=== PATIENT | male | born 1995 | race Caucasian/White ===

== ENCOUNTER 2017-10-06 17:32 | Emergency (ER) | payer OTHER, SELFPAY ==
[2017-10-06 17:33] VITALS: PULSE 135; RESP 16; TEMP 37.3; O2SAT 96; BMI 35.9
[2017-10-06 18:04] VITALS: BP 145/105; PULSE 118; RESP 14; O2SAT 99
[2017-10-06 18:16] LABS: Absolute Lymphocyte Count 3.04 X10^3/ul (0.83-4.51); Absolute Neutrophil Count 7.1 X10^3/uL (2.0-7.7); Basophil# 0.11 X10^3/uL; Eosinophil# 0.23 X10^3/uL; Eosinophils% 2.1 % (0-5); Hematocrit 46.5 % (40-54); Hemoglobin 16.6 g/dl (13.0-16.5); Lymphocyte # 3.04 X10^3/ul (4.0); Lymphocyte % 27.5 % (19-41); Mean Corp Hgb Conc 35.7 g/gl (32-36); Mean Corpuscular Volume 89.8 fL (80-94); Mean Platelet Vol. 9.5 fl (6.2-12.0); Monocyte% 4.5 % (0-10); Neutrophil # 7.14 X10^3/uL (2.7-7.7); Neutrophil % 64.7 % (47-70); Platelet Count 219 K/mm3 (150-450); RBC Distribution Width CV 12.8 % (11.6-14.6); RBC Distribution Width SD 41.3 fl (35.1-43.9); Red Blood Count 5.18 M/mm3 (4.6-6.2)
[2017-10-06 18:23] LABS: POSITIVE COUNT NO; POSITIVE DIFFERENTIAL NO; POSITIVE MORPHOLOGY NO
[2017-10-06 18:26] LABS: Prothrombin Time (Protime)PT. 13.1 SECONDS (11.7-14.9)
[2017-10-06 18:27] LABS: Partial Thromboplast Time 26.6 Seconds (24.1-36.2)
[2017-10-06 18:41] LABS: AST(SGOT) 55 U/L (15-37); Alanine Aminotransfer ALT/SGPT 90 U/L (16-61); Albumin, Serum 4.4 g/dL (3.2-5.0); Alkaline Phosphatase 71 U/L (45-117); BUN 11 mg/dL (7-18); Bilirubin, Direct 0.18 mg/dL (0.00-0.30); Calcium,Total 9.3 mg/dL (8.5-10.1); Chloride 103 mmol/L (98-107); EST Glomerular Filtration Rate 100 mL/min (>60); Est Glom Filt Rate - Afr Amer 122 mL/min (>60); Estimated Creatinine Clearance 132.06 ml/min; Glucose 104 mg/dL (74-106); Lipase 233 U/L (73-393); Potassium 3.7 mmol/L (3.5-5.1); Protein, Total 8.4 g/dL (6.4-8.2); Sodium Level 140 mmol/L (136-145)
[2017-10-06] MEDS: 0.9% Normal Saline 1,000 ML 1000 ML IV (18:41)
[2017-10-06 18:42] LABS: Anion Gap 13 (5-15)
[2017-10-06 19:14] VITALS: BP 138/98; PULSE 121; RESP 14; O2SAT 98
[2017-10-06] MEDS: 0.9% Normal Saline 1,000 ML 150 ML IV (19:16)
[2017-10-06 20:05] LABS: Amphetamine Urine VISTA NEGATIVE (<1000 ng/mL); Barbiturate Urine VISTA NEGATIVE (< 200 ng/mL); Benzodiazepine Urine VISTA NEGATIVE (< 200 ng/mL); Cocaine Urine VISTA NEGATIVE (< 300 ng/mL); Ecstacy Urine VISTA NEGATIVE (< 500 ng/mL); Methadone Urine VISTA NEGATIVE (< 300 ng/mL); PCP Urine VISTA NEGATIVE (< 25 ng/mL); THC Urine VISTA NEGATIVE (< 50 ng/mL); Vista UDS pH Range 6
[2017-10-06 21:42] VITALS: BP 128/80; PULSE 115; RESP 14; O2SAT 99
[2017-10-06 22:13] VITALS: BP 131/70; PULSE 110; RESP 14; O2SAT 99
[2017-10-06 23:06] VITALS: BP 135/80; PULSE 95; RESP 14; O2SAT 98
--- NOTE | 2017-10-06 23:32 | ED.VISSUMM ---
- ER Visit Summary Date of Service: 10/06/17 Chief Complaint: Substance abuse History of Present Illness: The patient is a 22 M with a 2-year history of alcohol abuse and states he needs help. Patient states he drinks vodka daily. He has had proximally half a gallon earlier in the day today. Patient states he has been through withdrawal in the past, mainly when he was under age 22 and could not find anybody to buy alcohol for him. Family does state that he has been talking about suicide over the past couple of days. Physical Examination: Temperature is 99.2, heart rate 135, respiratory rate 16, pulse ox 96% on room air. Patient sitting upright in bed. He is intermittently cooperative with questioning. He does smell of alcoholic beverage. Heart is tachycardic and regular. Lung sounds are clear. Abdomen is soft and nontender. Test Results: CBC was a normal white count hemoglobin 16.6. Chemistry studies normal. LFTs do show an ALT of 90 and AST of 55. His EtOH returns at 279. Tox screen is negative. Emergency Department Course and Treatment: Patient started on IV fluids. CIWA score is obtained is equal to 9. On repeat evaluation patient is resting comfortably. He is been sleeping the last couple of hours. Patient does admit to recent suicidal ideation. He complains of a mild headache only at this time. Vital signs continue to show mild tachycardia. Patient will have repeat alcohol level drawn at midnight which would be 5 hours after his initial draw to calculate his clearance. If the patient does not have further signs of withdrawal with a CIWA score of over 15 he will need to be evaluated by crisis. Patient has been updated with this plan. Treatment Plan: [] Disposition: [] Impression: 1. Alcohol intoxication 2. Suicidal ideation This note was generated with [employer] software. It may contain incorrect words, spelling, and punctuation that were not noted in review of the chart prior to signing ED Disposition - Plan for ED Patient: Chief Complaint: Substance Abuse Referrals: Care Physician,No Primary [Primary Care Provider] -
[2017-10-07 00:01] VITALS: BP 130/74; PULSE 92; RESP 16; O2SAT 96
--- NOTE | 2017-10-07 01:31 | ED.RN ---
CALLED CRISIS TO SEE THIS PT, RADHA IS BRASS POURER
--- NOTE | 2017-10-07 01:54 | ED.RN ---
crisis called back and given information on patient at this time. [facility] will see patient once they are finished
[2017-10-07 02:00] VITALS: RESP 16
[2017-10-07 04:01] VITALS: BP 138/87; PULSE 87; RESP 15; O2SAT 96
--- NOTE | 2017-10-07 04:22 | ED.DEP ---
ED Disposition - Plan for ED Patient: Disposition: Home or Assisted Living Chief Complaint: Substance Abuse Instructions: ED Overdose Alcohol, ED Alcohol Abuse Referrals: Pratik Rausch MD [STAFF PHYSICIAN] - As Needed Counseling,Center [GROUP OF PHYSICIANS] - As soon as possible Additional Instructions: Follow[facility]up with [facility] for outpatient alcohol counseling and detox. Call and follow-up with counseling center. Return to ER feeling worse.
[2017-10-07 04:46] VITALS: BP 133/81; PULSE 72; RESP 15; O2SAT 98
== END 2017-10-07 04:47 | disposition home or self-care (01) ==
PROVIDERS: Emergency Provider Emergency Medicine
DX: F10.229 Alcohol dependence with intoxication, unspecified (principal); F32.9 Major depressive disorder, single episode, unspecified; Y90.8 Blood alcohol level of 240 mg/100 ml or more
CPT/HCPCS: 80048; 80076; 80307; 80320; 83690; 85025; 85610; 85730; 96360; 99284; J7030; A4216; G0480

== ENCOUNTER 2017-10-08 13:05 | Inpatient (IN) | payer OTHER, SELFPAY ==
[2017-10-08 13:14] VITALS: BMI 35.4; BMI 50.0
--- NOTE | 2017-10-08 14:00 | PCM.HP.STD ---
Problem List (1) Alcohol dependence Status: Acute (2) Alcohol withdrawal Status: Chronic (3) Tobacco dependence Status: Chronic (4) Obesities, morbid Status: Chronic History of Present Illness Date of Admission: 10/08/17 Chief Complaint: Upper and lower extremity numbness The patient is a 22 year old M patient is a 22-year-old gentleman with past medical history cigar for morbid obesity, chronic alcohol dependence who presented with upper and lower extremity numbness. Patient reports daily use of alcohol. He apparently drinks half a gallon of vodka daily in addition to sixpack. He had previously tried to detox on his own but he was unsuccessful. Patient was admitted with upper and lower extremity numbness as described above. He denies any hallucination he however complained of feeling tremulous. On assessment of acute alcohol withdrawal I was made admitted to regular nursing floor for further management Past Medical History Past Medical History (Chronic Problems): Chronic Problems Alcohol withdrawal (Chronic) Tobacco dependence (Chronic) Obesities, morbid (Chronic) Allergies No Known Allergies Allergy (Verified 10/06/17 17:36) Smoking Status: Current every day smoker - *Family History Paternal History Items: - - Chronic alcoholism Review of Systems Constitutional: Denies: Anorexia, Chills, Fever, Night Sweats, Weight Change HEENT: Denies: Head Aches, Sinus Congestion, Sinus Drainage Cardiovascular: Denies: Chest Pain, Orthopnea, Palpitations, Paroxysmal Noc. Dyspnea Respiratory: Denies: Cough, Shortness of breath at rest, Shortness of breath upon exertion, Sputum production Gastrointestinal: Denies: Abdominal Pain, Hematemesis, Hematochezia, Nausea, Melena, Vomiting Genitourinary: Denies: Dysuria, Frequency, Hematuria, Urgency Musculoskeletal: Denies: Joint Pain, Joint Tenderness Skin: Denies: Rash Neurological: Reports: Numbness, Tingling. Denies: Focal weakness Psychiatric: Denies: Homicidal Ideations, Suicidal Ideations Hematologic/ Lymphatic: Denies: Easy Bruising, Easy Bleeding VTE Information - Inpt Only VTE Present on Admission: No VTE Mechan Device Prophylaxis: Knee High ANTONY Hose VTE Pharm Prophylaxis ordered?: Yes Patient Problems: Active and Suspected Problems Alcohol dependence (Acute) Objective: GENERAL: cooperative HEENT: Clear conjunctiva, NECK; supple, normal thyroid, CHEST: Diminished to auscultation bilaterally, HEART: Regular S1 S2, no audible murmurs ABDOMEN: soft, non-tender, normoactive bowel sounds, RECTAL: deferred EXTREMITIES: No edema, no clubbing, no cyanosis. LEAD PHARMACY TECHNICIAN: Awake; no lateralizing signs. SKIN: No Rash Assessment/Plan All Active Problems Alcohol dependence (Acute) Vision is a 22-year-old gentleman presenting with acute alcohol withdrawal 1. Acute alcohol withdrawal patient has been admitted to regular nursing floor for medical stabilization using Librium 2. Chronic alcohol dependence patient was counseled on cessation 3. Morbid obesity patient was counseled on lifestyle modification including weight loss 4. Tobacco dependence counseled on cessation, offered nicotine patch for tobacco cravings 5. DVT prophylaxis low risk did encourage early ambulation Code Visit Inpatient E&M: 66057 Init Hosp L3
[2017-10-08 14:32] LABS: Absolute Lymphocyte Count 1.85 X10^3/ul (0.83-4.51); Basophil# 0.03 X10^3/uL; Basophil% 0.4 % (0-1); Eosinophil# 0.22 X10^3/uL; Eosinophils% 2.6 % (0-5); Hematocrit 45.5 % (40-54); Hemoglobin 15.9 g/dl (13.0-16.5); Lymphocyte # 1.85 X10^3/ul (4.0); Lymphocyte % 21.6 % (19-41); Mean Corp Hgb Conc 34.9 g/gl (32-36); Mean Corpuscular Hgb 31.7 pg (27.0-32.0); Mean Corpuscular Volume 90.8 fL (80-94); Mean Platelet Vol. 9.5 fl (6.2-12.0); Monocyte# 0.43 X10^3/uL; Neutrophil # 6.02 X10^3/uL (2.7-7.7); Neutrophil % 70.4 % (47-70); Platelet Count 181 K/mm3 (150-450); RBC Distribution Width CV 12.8 % (11.6-14.6); RBC Distribution Width SD 42.1 fl (35.1-43.9); Red Blood Count 5.01 M/mm3 (4.6-6.2); White Blood Count 8.6 K/mm3 (4.4-11.0)
[2017-10-08 14:33] LABS: POSITIVE COUNT NO; POSITIVE DIFFERENTIAL NO; POSITIVE MORPHOLOGY NO
[2017-10-08 14:46] LABS: AST(SGOT) 55 U/L (15-37); Alanine Aminotransfer ALT/SGPT 83 U/L (16-61); Albumin, Serum 3.9 g/dL (3.2-5.0); Alkaline Phosphatase 72 U/L (45-117); Amylase 64 U/L (25-115); Anion Gap 7 (5-15); BUN 14 mg/dL (7-18); BUN/Creat Ratio 13.1 RATIO (10-20); Calcium,Total 9.5 mg/dL (8.5-10.1); Chloride 105 mmol/L (98-107); Creatinine, Serum 1.07 mg/dL (0.70-1.30); EST Glomerular Filtration Rate 93 mL/min (>60); Est Glom Filt Rate - Afr Amer 112 mL/min (>60); Estimated Creatinine Clearance 123.42 ml/min; Globulin 4.1 g/dL (2.2-4.2); Glucose 98 mg/dL (74-106); Lipase 216 U/L (73-393); Magnesium 2.4 mg/dL (1.6-2.6); Potassium 3.8 mmol/L (3.5-5.1); Sodium Level 140 mmol/L (136-145)
[2017-10-08 15:02] VITALS: BP 125/79; PULSE 83; RESP 20; TEMP 36.8
[2017-10-08] MEDS: Lactated Ringers 1,000 ML 125 ML IV (15:12)
[2017-10-08] MEDS: Methocarbamol 750 MG Tablet PO ×2 (15:15→21:47)
[2017-10-08] MEDS: Acetaminophen 500 MG Tablet PO (15:20)
[2017-10-08 15:23] LABS: Alcohol, Blood (Medical)-Serum < 3.0 mg/dL
[2017-10-08] MEDS: chlordiazePOXIDE 25 MG Capsule PO ×2 (15:38→21:47)
[2017-10-08 17:46] VITALS: BP 125/70; PULSE 83; RESP 18; TEMP 37.2
[2017-10-08] MEDS: hydrOXYzine PAM 25 MG Capsule 50 MG PO (17:57)
[2017-10-08] MEDS: Dicyclomine 10 MG Capsule 20 MG PO (17:57)
--- NOTE | 2017-10-08 18:00 | NURSING ---
pt started c/o chest pain. Goes into left neck/shoulder. Pt is anxious. Medicated recently for anxiety. Hope, CPS here and performing 12 lead EKG. This nurse recently obtained Vital Signs.
[2017-10-08 18:53] LABS: Bacteria 0 SEEN /hpf (None Seen); Mucous, Urine 0 SEEN /hpf (<or=2+); Red Blood Cells-Urine 0 SEEN /hpf (0-5); Squamous Epithelial Cells - UA 0 SEEN /hpf (0-5)
[2017-10-08 19:07] LABS: Color, Urine Yellow (Yellow); Glucose, Dipstick Normal (Normal); Ketone-Dipstick Negative (Negative); Leukocyte Esterase-Dipstick 25 /ul (Negative); Nitrite-Dipstick Negative (Negative); Occult Blood-Urine Negative /ul (Negative); Protein-Dipstick Negative (Negative); Specific Gravity, Urine 1.015 (1.002-1.030); Urine Bilirubin Dipstick Negative (Negative); Urine Clarity Sl. Cloudy (Clear); Urine Urobilinogen Normal (Normal); Urine pH 6.5 (5.0 - 8.0)
[2017-10-08 19:24] LABS: White Blood Cells 0-5 SEEN /hpf (0-5)
[2017-10-08 19:29] LABS: Amphetamine Urine VISTA NEGATIVE (<1000 ng/mL); Barbiturate Urine VISTA NEGATIVE (< 200 ng/mL); Benzodiazepine Urine VISTA NEGATIVE (< 200 ng/mL); Cocaine Urine VISTA NEGATIVE (< 300 ng/mL); Ecstacy Urine VISTA NEGATIVE (< 500 ng/mL); Methadone Urine VISTA NEGATIVE (< 300 ng/mL); PCP Urine VISTA NEGATIVE (< 25 ng/mL); THC Urine VISTA POSITIVE (< 50 ng/mL); Vista UDS pH Range 6
[2017-10-08 21:42] VITALS: BP 119/69; PULSE 76; RESP 16; TEMP 36.6
[2017-10-08 21:45] VITALS: BP 119/69; PULSE 76; RESP 16; TEMP 36.6; O2SAT 96
[2017-10-08] MEDS: traZODone 50 MG Tablet PO (21:47)
[2017-10-09] VITALS (8 sets, daily range): BP systolic 101–137; BP diastolic 62–84; PULSE 61–97; RESP 16–18; TEMP 36.4–37.1; O2SAT 98–100
[2017-10-09] MEDS: hydrOXYzine PAM 25 MG Capsule 50 MG PO ×4 (00:05→21:09)
[2017-10-09] MEDS: Ibuprofen 600 MG Tablet PO ×3 (01:46→21:09)
[2017-10-09] MEDS: Ondansetron ODT 4 MG Tablet PO ×2 (01:46→16:45)
[2017-10-09] MEDS: Methocarbamol 750 MG Tablet PO ×3 (03:42→21:09)
[2017-10-09] MEDS: chlordiazePOXIDE 25 MG Capsule PO ×3 (03:42→16:44)
--- NOTE | 2017-10-09 07:42 | PCM.PN.HOSP ---
Patient Problems: Active and Suspected Problems Alcohol dependence (Acute) Subjective: Patient is a 22-year-old gentleman presenting with acute alcohol withdrawal 10/09/2017:. Patient complains of anxiety generalized body aches, night sweats Objective: GENERAL: cooperative HEENT: Clear conjunctiva, NECK; supple, normal thyroid, CHEST: Diminished to auscultation bilaterally, HEART: Regular S1 S2, no audible murmurs ABDOMEN: soft, non-tender, normoactive bowel sounds, RECTAL: deferred EXTREMITIES: No edema, no clubbing, no cyanosis. VENIPUNCTURIST: Awake; no lateralizing signs. SKIN: No Rash Vitals/I&O's: Vital Signs Temp Pulse Resp BP Pulse Ox 98.8 F 61 16 101/63 96 10/09/17 06:10 10/09/17 06:10 10/09/17 06:10 10/09/17 06:10 10/08/17 21:45 Oxygen Delivery Method Room Air Weight: 122.016 kg Body Mass Index (BMI) 35.4 Intake and Output for Last 24 Hours 10/07/17 10/08/17 10/09/17 23:59 23:59 23:59 Intake Total 2266 / 2266 250 / 250 Balance 2266 / 2266 250 / 250 Laboratory Results 10/08/17 14:20: WBC 8.6, RBC 5.01, Hgb 15.9, Hct 45.5, MCV 90.8, MCH 31.7, MCHC 34.9, RDW 12.8, RDW Differential 42.1, Plt Count 181, MPV 9.5, Immature Gran % (Auto) 0.000, Neut % (Auto) 70.4 H, Lymph % (Auto) 21.6, Graves % (Auto) 5.0, Eos % (Auto) 2.6, Baso % (Auto) 0.4, Absolute Neuts (auto) 6.0, Absolute Lymphs (auto) 1.85, Total Counted Not Reportable 10/08/17 14:20: Sodium 140, Potassium 3.8, Chloride 105, Carbon Dioxide 28.0, Anion Gap 7, BUN 14, Creatinine 1.07, Estim Creat Clear Calc 123.42, Est GFR (MDRD) Af Amer 112, Est GFR (MDRD) Non-Af 93, BUN/Creatinine Ratio 13.1, Glucose 98, Calcium 9.5, Magnesium 2.4, Total Bilirubin 0.60, AST 55 H, ALT 83 H, Alkaline Phosphatase 72, Total Protein 8.0, Albumin 3.9, Globulin 4.1, Albumin/Globulin Ratio 1.0, Amylase 64, Lipase 216 10/08/17 14:20: Ethyl Alcohol < 3.0 10/08/17 14:20: PT 13.0, INR 1.0 10/08/17 : Urine Opiates Screen NEGATIVE, Urine Methadone Screen NEGATIVE, Ur Barbiturates Screen NEGATIVE, Ur Phencyclidine Scrn NEGATIVE, Ur Amphetamines Screen NEGATIVE, U Methamphetamin-MDMA NEGATIVE, U Benzodiazepines Scrn NEGATIVE, Urine Cocaine Screen NEGATIVE, U Cannabinoids Screen POSITIVE H, Ur Drug Screen Comment 10/08/17 : Urine Color Yellow, Urine Clarity Sl. Cloudy, Urine pH 6.5, Ur Specific Hope 1.015, Urine Protein Negative, Urine Glucose (UA) Normal, Urine Ketones Negative, Urine Occult Blood Negative, Urine Nitrite Negative, Urine Bilirubin Negative, Urine Urobilinogen Normal, Ur Leukocyte Esterase 25 H, Urine RBC 0 SEEN, Urine WBC 0-5 SEEN, Ur Squamous Epith Cells 0 SEEN, Urine Bacteria 0 SEEN, Urine Mucus 0 SEEN Current Medications Acetaminophen (Tylenol) 500 mg PO Q4H PRN PRN PRN Reason: Temp > 100.4 F Last Admin: 10/08/17 15:20 Dose: 500 mg Al Hydroxide/Mg Hydroxide (Mylanta Ii) 30 ml PO Q6H PRN PRN PRN Reason: dyspesia Bisacodyl (Dulcolax) 10 mg RECTAL DAILY PRN PRN Reason: Constipation Chlordiazepoxide (Librium) 50 mg PO Q6H RYAN PRN Reason: Taper Stop: 10/11/17 17:29 Last Admin: 10/09/17 03:42 Dose: 50 mg Dicyclomine HCl (Bentyl) 20 mg PO Q6H PRN PRN PRN Reason: abdominal discomfort Last Admin: 10/08/17 17:57 Dose: 20 mg Folic [facility] ([facility] Acid) [facility] Hydroxyzine Pamoate (Vistaril Pamoate Capsule) 50 mg PO Q6H PRN PRN PRN Reason: Mild Anxiety (score 1/3) Last Admin: 10/09/17 06:12 Dose: 50 mg Ibuprofen (Motrin) 600 mg PO Q8H PRN PRN PRN Reason: Mild-Moderate Pain (1-5/10) Last Admin: 10/09/17 01:46 Dose: 600 mg Loperamide HCl (Imodium) 2 - 4 mg PO UD PRN PRN Reason: LOOSE STOOLS Lorazepam (Ativan) 2 mg IV X1 PRN PRN Reason: Seizure Magnesium Hydroxide (Milk Of Magnesia) 30 ml PO DAILY PRN PRN PRN Reason: Constipation Methocarbamol (Methocarbamol) 750 mg PO Q6H PRN PRN PRN Reason: Muscle Aches Last Admin: 10/09/17 03:42 Dose: 750 mg Multivitamins (Multivitamin) 1 tablet PO DAILYCM [facility] Nicotine (Nicoderm Cq (Pbkc)) 21 mg TRANSDERM. DAILY [facility] Last Admin: 10/08/17 21:47 Dose: 21 mg Ondansetron HCl (Zofran Odt) 4 mg PO Q6H PRN PRN PRN Reason: NAUSEA Last Admin: 10/09/17 01:46 Dose: 4 mg Senna (Senokot) 1 tablet PO QHS PRN PRN Reason: Constipation Sodium Chloride () 5 - 30 ml IV UD PRN PRN Reason: SALINE FLUSH Thiamine HCl (Vitamin B1) 100 mg PO DAILYCM [facility] Trazodone HCl (Desyrel) 50 mg PO QHS [facility] Last Admin: 10/08/17 21:47 Dose: 50 mg Medical Necessity - Tobacco Use Smoking Status: Current every day smoker Assessment/Plan All Active Problems Alcohol dependence (Acute) Patient is a 22-year-old gentleman presenting with acute alcohol withdrawal 1. Acute alcohol withdrawal patient has been admitted to regular nursing floor for medical stabilization using Librium 2. Chronic alcohol dependence patient was counseled on cessation 3. Morbid obesity patient was counseled on lifestyle modification including weight loss 4. Tobacco dependence counseled on cessation, offered nicotine patch for tobacco cravings 5. DVT prophylaxis low risk did encourage early ambulation Code Visit Inpatient E&M: 31513 Subs Hosp L3
[2017-10-09] MEDS: Multivitamins,Therapeutic Tablet 1 TABLET PO (07:57)
[2017-10-09] MEDS: Thiamine Hydrochloride 100 MG Tablet PO (07:57)
[2017-10-09] MEDS: Folic Acid 1 MG Tablet PO (07:57)
[2017-10-09] MEDS: Acetaminophen 500 MG Tablet PO (08:09)
--- NOTE | 2017-10-09 12:53 | CHAPLAIN ---
Type of Pastoral Visit _x__ Initial Visit ___ Follow-up Visit ___ On-call Visit ___ General Patient Visit ___ Spiritual Assessment ___ Family Conference ___ Bereavement ___ Rapid Response ___ Code Blue ___ Other (describe below) Pastoral Care Referral From _x__ Patient ___ Family ___ Nurse ___ Physician ___ Stone Planer ___ Stock House Worker ___ Other (describe below) Sacrament/Intervention _x__ Active listening ___ Anointing ___ Baptist ___ Bereavement ___ Communion _x__ Elda exploration ___ ___ Life review _x__ Prayer ___ Reconciliation ___ Sacrament of Sick _x__ Supportive presence ___ Wedding ___ Other (describe below) Pastoral Comments patient verbalizes a strong understanding of his problem and the remedies for overcoming; pt has a motivation as illustrated in presence of his and son; pt says among other resources that he wants to go back to [employer] again and do the right things; pt is talkative and welcomes prayer support and spiritual care
[2017-10-09] MEDS: traZODone 50 MG Tablet PO (22:15)
[2017-10-10] VITALS (7 sets, daily range): BP systolic 103–150; BP diastolic 62–117; PULSE 73–103; RESP 16–20; TEMP 36.4–36.8; O2SAT 96–98
[2017-10-10] MEDS: chlordiazePOXIDE 25 MG Capsule PO ×3 (01:20→17:39)
--- NOTE | 2017-10-10 07:45 | PCM.PN.HOSP ---
Patient Problems: Active and Suspected Problems Alcohol dependence (Acute) Subjective: Patient seen had a relatively uneventful night. Plan is for patient to be discharged on 10/11/2017 to follow-up Objective: GENERAL: cooperative HEENT: Clear conjunctiva, NECK; supple, normal thyroid, CHEST: Diminished to auscultation bilaterally, HEART: Regular S1 S2, no audible murmurs ABDOMEN: soft, non-tender, normoactive bowel sounds, RECTAL: deferred EXTREMITIES: No edema, no clubbing, no cyanosis. TRANSVERSE ABDOMINAL MUSCLE SURGEON: Awake; no lateralizing signs. SKIN: No Rash Vitals/I&O's: Vital Signs Temp Pulse Resp BP Pulse Ox 97.6 F L 73 16 103/62 98 10/10/17 06:39 10/10/17 06:39 10/10/17 06:39 10/10/17 06:39 10/09/17 20:59 Oxygen Delivery Method Room Air Weight: 122.016 kg Body Mass Index (BMI) 35.4 Intake and Output for Last 24 Hours 10/08/17 10/09/17 10/10/17 23:59 23:59 23:59 Intake Total 2266 / 2266 1290 / 1290 500 / 500 Balance 2266 / 2266 1290 / 1290 500 / 500 Current Medications Acetaminophen (Tylenol) 500 mg PO Q4H PRN PRN PRN Reason: Temp > 100.4 F Last Admin: 10/09/17 08:09 Dose: 500 mg Al Hydroxide/Mg Hydroxide (Mylanta Ii) 30 ml PO Q6H PRN PRN PRN Reason: dyspesia Bisacodyl (Dulcolax) 10 mg RECTAL DAILY PRN PRN Reason: Constipation Chlordiazepoxide (Librium) 50 mg PO Q8H RYAN PRN Reason: Taper Stop: 10/11/17 17:29 Last Admin: 10/10/17 01:20 Dose: 50 mg Dicyclomine HCl (Bentyl) 20 mg PO Q6H PRN PRN PRN Reason: abdominal discomfort Last Admin: 10/08/17 17:57 Dose: 20 mg Folic Acid (Folic Acid) 1 mg PO DAILYCM RYAN Last Admin: 10/09/17 07:57 Dose: 1 mg Hydroxyzine Pamoate (Vistaril Pamoate Capsule) 50 mg PO Q6H PRN PRN PRN Reason: Mild Anxiety (score 1/3) Last Admin: 10/09/17 21:09 Dose: 50 mg Ibuprofen (Motrin) 600 mg PO Q8H PRN PRN PRN Reason: Mild-Moderate Pain (1-5/10) Last Admin: 10/09/17 21:09 Dose: 600 mg Loperamide HCl (Imodium) 2 - 4 mg PO UD PRN PRN Reason: LOOSE STOOLS Lorazepam (Ativan) 2 mg IV X1 PRN PRN Reason: Seizure Magnesium Hydroxide (Milk Of Magnesia) 30 ml PO DAILY PRN PRN PRN Reason: Constipation Methocarbamol (Methocarbamol) 750 mg PO Q6H PRN PRN PRN Reason: Muscle Aches Last Admin: 10/09/17 21:09 Dose: 750 mg [facility]) [facility] Last Admin: 10/09/17 07:57 Dose: 1 tablet Nicotine (Nicoderm Cq (Pbkc)) 21 mg TRANSDERM. DAILY [facility] Last Admin: 10/09/17 18:07 Dose: 21 mg Ondansetron HCl (Zofran Odt) 4 mg PO Q6H PRN PRN PRN Reason: NAUSEA Last Admin: 10/09/17 16:45 Dose: 4 mg Senna (Senokot) 1 tablet PO QHS PRN PRN Reason: Constipation Sodium Chloride () 5 - 30 ml IV UD PRN PRN Reason: SALINE FLUSH Thiamine HCl (Vitamin B1) [facility] Last Admin: 10/09/17 07:57 Dose: 100 mg Trazodone HCl (Desyrel) 50 mg PO QHS [facility] Last Admin: 10/09/17 22:15 Dose: 50 mg Medical Necessity - Tobacco Use Smoking Status: Current every day smoker Assessment/Plan All Active Problems Alcohol dependence (Acute) Patient is a 22-year-old gentleman presenting with acute alcohol withdrawal 1. Acute alcohol withdrawal patient has been admitted to regular nursing floor for medical stabilization using Librium 2. Chronic alcohol dependence patient was counseled on cessation 3. Morbid obesity patient was counseled on lifestyle modification including weight loss 4. Tobacco dependence counseled on cessation, offered nicotine patch for tobacco cravings 5. DVT prophylaxis low risk did encourage early ambulation0 Code Visit Inpatient E&M: 35648 Subs Hosp L2
[2017-10-10] MEDS: Folic Acid 1 MG Tablet PO (08:49)
[2017-10-10] MEDS: Thiamine Hydrochloride 100 MG Tablet PO (08:49)
[2017-10-10] MEDS: Multivitamins,Therapeutic Tablet 1 TABLET PO (08:50)
[2017-10-10] MEDS: Methocarbamol 750 MG Tablet PO (09:10)
[2017-10-10] MEDS: Ibuprofen 600 MG Tablet PO ×2 (09:10→18:56)
[2017-10-10] MEDS: hydrOXYzine PAM 25 MG Capsule 50 MG PO (14:01)
[2017-10-10] MEDS: Acetaminophen 500 MG Tablet PO (14:03)
[2017-10-10] MEDS: Dicyclomine 10 MG Capsule 20 MG PO (14:03)
--- NOTE | 2017-10-10 15:43 | CHAPLAIN ---
Type of Pastoral Visit ___ Initial Visit _x__ Follow-up Visit ___ On-call Visit ___ General Patient Visit ___ Spiritual Assessment ___ Family Conference ___ Bereavement ___ Rapid Response ___ Code Blue ___ Other (describe below) Pastoral Care Referral From _x__ Patient ___ Family ___ Nurse ___ Physician ___ Environmental Compliance Engineer ___ Stage Driver ___ Other (describe below) Sacrament/Intervention _x__ Active listening ___ Anointing ___ Latter-Day ___ Bereavement ___ Communion _x__ Elda exploration ___ _x__ Life review _x__ Prayer ___ Reconciliation ___ Sacrament of Sick _x__ Supportive presence ___ Wedding ___ Other (describe below) Pastoral Comments patient has the answers and appears to be ready for a major life change; however pt talks about fears of going back to the alcohol and wondering how he is going to handle depression, boredom, etc.; pt reports having good support and a desire to return to the things that were good for him; pt speaks of desire to be in zoroastrianism; pt welcomes prayer; spouse comes into room early on in this conversation; spouse says she is supportive but does not really understand his addiction
[2017-10-10] MEDS: traZODone 50 MG Tablet PO (21:11)
[2017-10-11 02:00] VITALS: BP 105/55; PULSE 70; RESP 18; TEMP 36.4; O2SAT 96
[2017-10-11 03:00] VITALS: RESP 16; O2SAT 95
[2017-10-11] MEDS: chlordiazePOXIDE 25 MG Capsule PO (05:36)
[2017-10-11 08:26] VITALS: BP 160/85; PULSE 90; RESP 16; TEMP 37.1; O2SAT 99
--- NOTE | 2017-10-11 08:57 | PCM.DC ---
- Discharge Diagnoses Current Active Problems: Current Active and Chronic Problems Alcohol dependence (Acute) Alcohol withdrawal (Chronic) Tobacco dependence (Chronic) Obesities, morbid (Chronic) You will use the following diet at home:: No restrictions Discharge Activity: Return to Normal Activity Allergies/Adverse Reactions: Allergies No Known Allergies Allergy (Verified 10/06/17 17:36) Medications to take at Discharge Amlodipine [Norvasc] 5 mg PO DAILY #30 tab 10/11/17 The following prescriptions were given: Amlodipine [Norvasc] 5 mg PO DAILY #30 tab Primary Care Physician: Care Physician,No Primary [Primary Care Provider] - Please follow up with your Primary Care Physician in: in 1-2 weeks Test Results: Test results from this visit will be discussed in further detail at your follow-up appointment, if applicable. Proposed Discharge Date: 10/11/17
--- NOTE | 2017-10-11 09:00 | PCM.DC.SUM ---
Discharge Date and Diagnosis - Problem List Patient Problems: Active and Suspected Problems Essential (primary) hypertension (Acute) Alcohol dependence (Acute) Date of Admission: 10/08/17 Date of Discharge: 10/11/17 - Primary Discharge Diagnosis Active and Suspected Problems Essential (primary) hypertension (Acute) Alcohol dependence (Acute) - Secondary Discharge Diagnosis Chronic Problems Alcohol withdrawal (Chronic) Tobacco dependence (Chronic) Obesities, morbid (Chronic) Hospital Course and Treatment Summary of Care Provided: Patient is a 22-year-old gentleman presenting with acute alcohol withdrawal 1. Acute alcohol withdrawal patient has been admitted to regular nursing floor for medical stabilization using Librium 2. Chronic alcohol dependence patient was counseled on cessation 3. Morbid obesity patient was counseled on lifestyle modification including weight loss 4. Tobacco dependence counseled on cessation, offered nicotine patch for tobacco cravings 5. DVT prophylaxis low risk did encourage early ambulation 6. Essential hypertension; new diagnosis prescription was written for amlodipine for the patient patient was also provided with a PCP list and asked to pick want to call for follow-up Discharge Diet: No Restrictions Discharge Activity: Return to Normal Activity Home Medications: Medications to take at Discharge Amlodipine [Norvasc] 5 mg PO DAILY #30 tab 10/11/17 Following Prescrptions Were Given to Patient: Amlodipine [Norvasc] 5 mg PO DAILY #30 tab Primary Care Physician: Care Physician,No Primary [Primary Care Provider] - Please follow up with your Primary Care Physician in: in 1-2 weeks Disposition: Home Minutes spent on discharge:: 35 Patient Condition:: Stable Medical Necessity - Tobacco Use Smoking Status: Current every day smoker Meaningful Use Info Meaningful Use Diagnoses (Choose all that apply): None applicable Code Visit Inpatient E&M: 45848 Disch Hosp
[2017-10-11] MEDS: Multivitamins,Therapeutic Tablet 1 TABLET PO (09:09)
[2017-10-11] MEDS: Folic Acid 1 MG Tablet PO (09:09)
[2017-10-11] MEDS: Thiamine Hydrochloride 100 MG Tablet PO (09:09)
== END 2017-10-11 11:15 | disposition home or self-care (01) | DRG 897 ==
PROVIDERS: Admitting Provider Internal Medicine; Visit Provider Internal Medicine
DX: F10.239 Alcohol dependence with withdrawal, unspecified (principal); F17.200 Nicotine dependence, unspecified, uncomplicated; E66.01 Morbid (severe) obesity due to excess calories; Z68.35 Body mass index [BMI] 35.0-35.9, adult; I10 Essential (primary) hypertension
CPT/HCPCS: 80053; 80307; 80320; 81001; 82150; 83690; 83735; 85025; 85610; 93005; J7120; A4216; G0480

== ENCOUNTER 2019-01-30 11:57 | Inpatient (IN) | payer MEDICAID, SELFPAY ==
[2019-01-30 11:58] VITALS: BP 155/103; PULSE 110; RESP 16; TEMP 36.7; O2SAT 97; BMI 38.2
--- NOTE | 2019-01-30 12:25 | EKG12_ITS ---
Test Reason : SUBT ABUSE Blood Pressure : / mmHG Vent. Rate : 096 BPM Atrial Rate : 096 BPM P-R Int : 146 ms QRS Dur : 072 ms QT Int : 366 ms P-R-T Axes : 033 -01 016 degrees QTc Int : 462 ms Normal sinus rhythm Normal ECG Confirmed by RACHNA MAJANO, BESSIE ([id number]), video tape editor CARLIN MARTIN ([id number] on 02/02/2019 9:58:38 AM Referred By: HEATHER Confirmed By:JAMIE BRISCOE MD
[2019-01-30] MEDS: LORazepam 2 MG/ML Syringe IV (12:42)
[2019-01-30] MEDS: 0.9% Normal Saline 1,000 ML 999 ML IV ×2 (12:42→14:03)
[2019-01-30 13:14] LABS: Absolute Lymphocyte Count 1.77 X10^3/uL (0.83-4.51); Absolute Neutrophil Count 5.8 X10^3/uL (2.0-7.7); Basophil# 0.13 X10^3/uL; Basophil% 1.5 % (0-1); Eosinophil# 0.27 X10^3/uL; Eosinophils% 3.2 % (0-5); Hematocrit 40.5 % (40-54); Hemoglobin 14.3 g/dL (13.0-16.5); Lymphocyte # 1.77 X10^3/ul (4.0); Lymphocyte % 20.7 % (19-41); Mean Corp Hgb Conc 35.3 g/dL (32-36); Mean Corpuscular Hgb 38.8 pg (27.0-32.0); Mean Corpuscular Volume 109.8 fL (80-94); Mean Platelet Vol. 9.4 fl (6.2-12.0); Monocyte# 0.55 X10^3/uL; Monocyte% 6.4 % (0-10); NRBC Flagged by Analyzer 0 % (0-5); Platelet Count 276 K/mm3 (150-450); RBC Distribution Width CV 12.3 % (11.6-14.6); RBC Distribution Width SD 50.2 fl (35.1-43.9); Red Blood Count 3.69 M/mm3 (4.6-6.2); White Blood Count 8.5 K/mm3 (4.4-11.0)
[2019-01-30 13:29] LABS: Mucous, Urine 0 SEEN /hpf (<or=2+); White Blood Cells 0 SEEN /hpf (0-5)
[2019-01-30 13:31] LABS: ALB/GLOB Ratio 0.8 RATIO (0.9-2.4); AST(SGOT) 326 U/L (15-37); Alanine Aminotransfer ALT/SGPT 117 U/L (16-61); Albumin, Serum 3.7 g/dL (3.2-5.0); Alkaline Phosphatase 184 U/L (45-117); Anion Gap 12 (5-15); BUN 4 mg/dL (7-18); BUN/Creat Ratio 4.7 RATIO (10-20); Calcium,Total 9.9 mg/dL (8.5-10.1); Chloride 103 mmol/L (98-107); Creatinine, Serum 0.85 mg/dL (0.70-1.30); EST Glomerular Filtration Rate 119 mL/min (>60); Est Glom Filt Rate - Afr Amer 145 mL/min (>60); Estimated Creatinine Clearance 154.06 ml/min; Globulin 4.7 g/dL (2.2-4.2); Glucose 135 mg/dL (74-106); Lipase 369 U/L (73-393); Potassium 4.1 mmol/L (3.5-5.1); Protein, Total 8.4 g/dL (6.4-8.2); Sodium Level 139 mmol/L (136-145)
[2019-01-30 13:42] LABS: Amphetamine Urine VISTA NEGATIVE (<1000 ng/mL); Barbiturate Urine VISTA NEGATIVE (< 200 ng/mL); Benzodiazepine Urine VISTA NEGATIVE (< 200 ng/mL); Cocaine Urine VISTA NEGATIVE (< 300 ng/mL); Ecstacy Urine VISTA NEGATIVE (< 500 ng/mL); Methadone Urine VISTA NEGATIVE (< 300 ng/mL); PCP Urine VISTA NEGATIVE (< 25 ng/mL); THC Urine VISTA NEGATIVE (< 50 ng/mL); Vista UDS pH Range 6
[2019-01-30 13:45] LABS: Color, Urine Yellow (Yellow); Glucose, Dipstick Normal (Normal); Ketone-Dipstick 5 mg/dl (Negative); Leukocyte Esterase-Dipstick 25 /ul (Negative); Nitrite-Dipstick Negative (Negative); Occult Blood-Urine Negative /ul (Negative); Protein-Dipstick Negative (Negative); Urine Bilirubin Dipstick Negative (Negative); Urine Clarity Clear (Clear); Urine Urobilinogen 1 mg/dl (Normal)
[2019-01-30 13:54] LABS: Bacteria RARE /hpf (None Seen); Red Blood Cells-Urine 0-5 SEEN /hpf (0-5); Squamous Epithelial Cells - UA 0-5 SEEN /hpf (0-5)
--- NOTE | 2019-01-30 14:12 | US_ITS ---
STUDY: ABDOMINAL ULTRASOUND - RIGHT UPPER QUADRANT REASON FOR VISIT: Male, 23 years old elevated liver enzymes. TECHNIQUE: Ultrasound evaluation of the right upper quadrant was performed with real-time and static olvera-scale imaging. TECHNICAL QUALITY: Limited. Examination limited due to a combination of factors including obesity and bowel gas. COMPARISON: None. FINDINGS: Liver: The liver is enlarged and measures 24.5 cm. There is increased echogenicity consistent with fatty infiltration. The bile ducts are within normal limits. There is hepatic color flow. The direction of portal flow is hepatopetal. There is no demonstrated mass lesion. Gallbladder: Normal distended gallbladder. The gallbladder wall measures 1.5 mm. There is a negative sonographic Marin''s sign. There is no pericholecystic fluid. There are no gallstones. Common Bile Duct (C.B.D.): The common bile duct measures 4.9 mm. Pancreas: There is nonvisualization of the pancreas due to overlying bowel gas. Right Kidney: Normal size of the right kidney. The right kidney measures 12.3 cm x 6.5 cm x 4.5 cm. Normal renal cortex. The right cortex measures 1.3 cm. There is no demonstrated renal mass or cyst. There is no right hydronephrosis. US/Gallbladder IMPRESSION: Hepatomegaly and diffuse fatty infiltration of the liver. Electronically Signed: Zana Corado, at 15:42 EST , Service support ,
--- NOTE | 2019-01-30 14:14 | ED.DCSUM_ITS ---
History of Present Illness Chief Complaint: Substance Abuse Informant: Patient Onset: Month(s) Current Severity: Mild Narrative: Chief complaint is requesting alcohol detox he has a long history of alcohol abuse, he states he drinks about a half a gallon or more of vodka every day he has been doing that for many years, he is never been detoxed, to his knowledge he has no known history of any complications from the alcohol abuse, other than the report recently he was admitted to a local [facility] and found to have low electrolytes he was treated for that and told his liver enzymes were elevated he should stop drinking and follow-up for detox which he did not He has no history of cardiopulmonary disorder GI disorder WI PE or DVT he denies smoking denies any type of illicit drug use his bowel and bladder habits been generally unremarkable he states decreased p.o. intake he denies abdominal pain or vomiting Past Medical History - Allergies and Home Meds Allergies/Adverse Reactions: Allergies No Known Allergies Allergy (Verified 10/06/17 17:36) Primary Care Physician: Care Physician,No Primary [Primary Care Provider] - Past Medical History: - - Alcohol abuse as above elevated liver enzymes Smoking Status: Current some day smoker - Family History Paternal Family History: Family History (Last Updated 10/11/17 @ 13:14 by Bell Hendrickson) Mother Chronic mental illness Grandmother Diabetes Chronic mental illness Sister Chronic mental illness Grandfather Myocardial infarction CVA (cerebral vascular accident) Cancer Family History: Reports: - - Chronic alcoholism Review of Systems General: Reports: - - Complains of a tremor since he stopped drinking about midnight. Denies: Chills, Fever, Sweats Eyes: Denies: Visual changes - bilaterally, Diplopia ENT: Denies: Rhinorrhea, Sore throat Cardiovascular: Denies: Chest pain, Palpitations Respiratory: Denies: Dyspnea, Cough, Dyspnea on exertion Gastrointestinal: Denies: Abdominal pain, Nausea, Vomiting, Diarrhea, Melena, Hematochezia Genitourinary: Denies: Dysuria, Hematuria, Frequency Musculoskeletal: Denies: Back pain, Extremity Pain Skin: Denies: Rash, Wounds Neurological: Denies: Headache, Weakness, Numbness Physical Exam Vital Signs/Narrative: Vital Signs Temp Pulse Resp BP Pulse Ox 01/30/19 11:58 98.1 F 110 H 16 155/103 H 97 General: Well nourished, Well developed, No Acute Distress, - - Does have a resting tremor to both upper extremities is awake and alert he is a very large gentleman Head: Normocephalic, Atraumatic Eyes: Perrl, EOMI ENT: Moist mucous membranes, No rhinorrhea Neck: Supple, Nontender Cardiovascular: Regular rate, Regular rhythm, No murmurs Respiratory: No distress, CTA bilaterally, Chest nontender Abdomen: Soft, Nontender, Nondistended, Normal bowel sounds, - - The min is obese but soft and nontender neurologically he is awake alert moving all 4 has had no hallucinations no seizures Back: Nontender, Normal Inspection Extremities: Nontender, No edema Skin: Normal color, No rash Neurological: Alert, Oriented x3, Cranial nerves II-XII grossly intact, Normal Strength, Normal Sensation Psychological: Normal affect, Normal Mood Diagnostic/Tx/Re-eval - Medical Decision Making The patient has heavy history of alcohol consumption to his knowledge when he cuts back or stops drinking he develops tremor he has never had a seizure hallucinations or DTs, he did not follow-up to have his liver enzymes checked he is asking for detox as he is had significant difficulty with his spouse who will not let him live with her until he gets detoxed and sober His liver enzymes are elevated his rest of his screening labs are generally unremarkable, he was treated IV fluids Ativan we did speak with the hospitalist, we have ordered hepatitis screen and ultrasound the admitting service will check these results and will arrange for admission Admit stable Final impression alcohol withdrawal, alcohol abuse requiring detox, elevated liver enzymes ED Disposition - Plan for ED Patient: Diagnosis: Alcohol dependence, Alcohol withdrawal Referrals: Care Physician,No Primary [Primary Care Provider] -
[2019-01-30] MEDS: Ondansetron 4 MG/2 ML Vial IV (14:36)
[2019-01-30 14:38] VITALS: BMI 38.3
--- NOTE | 2019-01-30 14:51 | HP.PCM_ITS ---
History of Present Illness Date of Admission: 01/30/19 Chief Complaint: alcohol detox The patient is a 23 year old M with a PMH of alcohol abuse. He was admitted via the ED on 01/30/19 for alcohol detox. He drinks about half a gallon of vodka daily for the past year and half. His last drink was one day ago. He says he has gone through detox before but was relapsed. He says his kicked him out of the house, and he says he now wants to quit drinking. He also complained of tremors in his UEs, and some numbness in LEs. Vitals were significant for tachycardia with HR of 110 and BP of 155/103. CBC was unremarkable. CMP showed elevated liver enzymes but was otherwise normal. EKG showed no acute ST change s. He is being admitted to be managed for acute alcohol withdrawal [] Past Medical History Past Medical History (Chronic Problems): Chronic Problems (Last Updated 10/11/17 @ 13:13 by Bell Hendrickson) Bipolar 1 disorder (Chronic) Anxiety and depression (Chronic) Alcohol withdrawal (Chronic) Tobacco dependence (Chronic) Obesities, morbid (Chronic) Medical History: Medical History (Last Updated 10/11/17 @ 13:13 by Bell Hendrickson) Bipolar 1 disorder (Chronic) F31.9 Anxiety and depression (Chronic) F41.9, F32.9 History of traumatic head injury Z87.828 age 10 Allergies No Known Allergies Allergy (Verified 10/06/17 17:36) Home Medications: Ambulatory Orders Medication Instructions Recorded NK 01/30/19 Surgical History: no surgical history Psychiatric History: No pertinent psych hx Lives: Spouse/ Significant Other Smoking Status: Current some day smoker Tobacco Use: Cigarettes Alcohol: Heavy Drugs: None - *Family History Paternal Family History: Family History (Last Updated 10/11/17 @ 13:14 by Bell Hendrickson) Mother Chronic mental illness Grandmother Diabetes Chronic mental illness Sister Chronic mental illness Grandfather Myocardial infarction CVA (cerebral vascular accident) Cancer History Items: - - Chronic alcoholism Review of Systems Constitutional: Denies: Chills, Fever, Malaise, Weakness, Weight Change Eyes: Denies: Blurred vision HEENT: Denies: Head Aches, Sinus Congestion, Sinus Drainage Cardiovascular: Denies: Chest Pain, Palpitations Respiratory: Denies: Cough, Shortness of Breath, Shortness of breath at rest, Shortness of breath upon exertion, Sputum production Gastrointestinal: Denies: Abdominal Pain, Nausea, Vomiting Genitourinary: Denies: Dysuria Musculoskeletal: Denies: Joint Pain, Joint Tenderness Skin: Denies: Rash, Wounds Neurological: Reports: Numbness, Tingling, Tremor. Denies: Focal weakness Psychiatric: Denies: Anxiety, Depression, Homicidal Ideations, Suicidal Ideations Hematologic/ Lymphatic: Denies: Easy Bruising, Easy Bleeding VTE Information - Inpt Only VTE Present on Admission: No VTE Mechan Device Prophylaxis: SCD's VTE Pharm Prophylaxis ordered?: No Patient Problems: Active and Suspected Problems (Last Updated 10/11/17 @ 13:13 by Bell Hendrickson) Alcohol dependence (Acute) - Physical Exam Vitals/I&O's: Vital Signs Temp Pulse Resp BP Pulse Ox 98.1 F 110 H 16 155/103 H 97 01/30/19 11:58 01/30/19 11:58 01/30/19 11:58 01/30/19 11:58 01/30/19 11:58 Oxygen Delivery Method Room Air Weight: 290 lb Body Mass Index (BMI) 38.2 Intake and Output for Last 24 Hours 01/28/19 01/29/19 01/30/19 23:59 23:59 23:59 Intake Total 1000 / 1000 Balance 1000 / 1000 General: Alert, Oriented x3, Cooperative, - - obese HEENT: Atraumatic, PERRLA, EOMI, Normocephalic Oral: Moist Mucosa Neck: Supple, No JVD, Negative Carotid Bruits Lungs: Clear to auscultation, Normal air movement, No rhonchi, No wheeze, No rales Cardiovascular: Regular rate, Regular Rhythm, Normal S1, Normal S2, No murmurs Abdomen: Bowel Sounds Present, Soft, Non Tender, Non-Distended, No Hepato- splenomegaly Extremities: No clubbing, No cyanosis, No edema, Capillary Refill Less than 3 Seconds Skin: No rashes, No breakdown Musculoskeletal: No Tenderness to Palpation of Joints or Extremities Lymphatic: No Cervical, Supraclavicular, or Inguinal Adenopathy Neurological: Cranial nerves II-XII grossly intact, Neuro grossly intact, Motor Exam 5/5 strength throughout Psych/Mental Status: Normal Affect, Appropriate, Alert and oriented to time, place, person, mood and affect Laboratory Results 01/30/19 12:47: WBC 8.5, RBC 3.69 L, Hgb 14.3, Hct 40.5, MCV 109.8 H, MCH 38.8 H , MCHC 35.3, RDW Std Deviation 50.2 H, RDW Coeff of Lisa 12.3, Plt Count 276, MPV 9.4, Immature Gran % (Auto) 0.200, Neut % (Auto) 68.0, Lymph % (Auto) 20.7, [place] % (Auto) 6.4, Eos % (Auto) 3.2, Baso % (Auto) 1.5 H, Absolute Neuts (auto) 5.8, Absolute Lymphs (auto) 1.77, Nucleated RBC % 0 01/30/19 12:47: Sodium 139, Potassium 4.1, Chloride 103, Carbon Dioxide 24.0, Anion Gap 12, BUN 4 L, Creatinine 0.85, Estim Creat Clear Calc 154.06, Est GFR (MDRD) Af Amer 145, Est GFR (MDRD) Non-Af 119, BUN/Creatinine Ratio 4.7 L, Glucose 135 H, Calcium 9.9, Total Bilirubin 1.50 H, AST 326 H, ALT 117 H, Alkaline Phosphatase 184 H, Total Protein 8.4 H, Albumin 3.7, Globulin 4.7 H, Albumin/Globulin Ratio 0.8 L, Lipase 369 01/30/19 12:47: Ethyl Alcohol 4.0 01/30/19 13:20: Urine Opiates Screen NEGATIVE, Urine Methadone Screen NEGATIVE, Ur Barbiturates Screen NEGATIVE, Ur Phencyclidine Scrn NEGATIVE, Ur Amphetamines Screen NEGATIVE, U Methamphetamin-MDMA NEGATIVE, U Benzodiazepines Scrn NEGATIVE, Urine Cocaine Screen NEGATIVE, U Cannabinoids Screen NEGATIVE, Ur Drug Screen Comment 01/30/19 13:20: Urine Color Yellow, Urine Clarity Clear, Urine pH 7.0, Ur Specific [place] 1.010, Urine Protein Negative, Urine Glucose (UA) Normal, Urine Ketones 5 H, Urine Occult Blood Negative, Urine Nitrite Negative, Urine Bilirubin Negative, Urine Urobilinogen 1 H, Ur Leukocyte Esterase 25 H, Urine RBC 0-5 SEEN, Urine WBC 0 SEEN, Ur Squamous Epith Cells 0-5 SEEN, Urine Bacteria RARE, Urine Mucus 0 SEEN 01/30/19 14:22: Hepatitis A IgM Ab Pending, Hep Bs Antigen Pending, Hep B Core IgM Ab Pending, Hepatitis C Ab (EIA) Pending Assessment/Plan All Active Problems (Last Updated 10/11/17 @ 13:13 by Bell Hendrickson) Essential (primary) hypertension (Acute) Alcohol dependence (Acute) 23 y/o admitted with a complaint of alcohol withdrawal 1. Acute alcohol withdrawal * admit to med surg with telemetry * put on alcohol withdrawal protocol with ativan * monitor CIWA score; CIWA score was 16 on admission * fall precautions * 2. Elevated liver enzymes * total bilirubin is 1.5, with AST/ALT of 326/117 and ALP of 184. * liver USG pending * likely due to alcohol abuse * hepatitis panel pending * 3. Nicotine dependence: counseled to quit. Nicotine patch 21mg daily DVT prophylaxis: SCDs Disposition: wants to go to inpatient rehab unit after detox process. Case management consulted. Code Visit Inpatient E&M: 90077 Init Hosp L3
[2019-01-30 15:23] VITALS: BMI 39.0
[2019-01-30 15:25] VITALS: BP 166/95; PULSE 104; RESP 18; O2SAT 98
[2019-01-30 16:07] VITALS: BP 131/92; PULSE 107; RESP 16; TEMP 36.7; O2SAT 94
[2019-01-30 16:17] LABS: Magnesium 1.9 mg/dL (1.6-2.6)
[2019-01-30] MEDS: LORazepam 1 MG Tablet 2 MG PO ×2 (16:19→18:11)
[2019-01-30] MEDS: Methocarbamol 750 MG Tablet PO (16:22)
[2019-01-30 16:31] LABS: Bedside Glucose 166 mg/dL (70-110)
[2019-01-30 20:12] VITALS: BP 135/97; PULSE 98; RESP 18; TEMP 36.4; O2SAT 97
[2019-01-30] MEDS: LORazepam 1 MG Tablet PO (20:23)
[2019-01-31] VITALS (9 sets, daily range): BP systolic 127–152; BP diastolic 86–106; PULSE 91–116; RESP 12–18; TEMP 36.4–37.1; O2SAT 95–98
[2019-01-31] MEDS: Methocarbamol 750 MG Tablet PO ×3 (00:04→23:55)
[2019-01-31] MEDS: LORazepam 1 MG Tablet PO ×6 (00:04→23:38)
[2019-01-31 05:10] LABS: Absolute Lymphocyte Count 2.04 X10^3/uL (0.83-4.51); Absolute Neutrophil Count 3.3 X10^3/uL (2.0-7.7); Basophil% 1.6 % (0-1); Eosinophil# 0.38 X10^3/uL; Eosinophils% 6.1 % (0-5); Hematocrit 38.4 % (40-54); Hemoglobin 13.5 g/dL (13.0-16.5); Lymphocyte # 2.04 X10^3/ul (4.0); Mean Corp Hgb Conc 35.2 g/dL (32-36); Mean Corpuscular Hgb 39.4 pg (27.0-32.0); Mean Platelet Vol. 9.3 fl (6.2-12.0); Monocyte# 0.36 X10^3/uL; Monocyte% 5.8 % (0-10); NRBC Flagged by Analyzer 0 % (0-5); Neutrophil # 3.29 X10^3/uL (2.7-7.7); Neutrophil % 53.3 % (47-70); Platelet Count 206 K/mm3 (150-450); RBC Distribution Width SD 49.9 fl (35.1-43.9); Red Blood Count 3.43 M/mm3 (4.6-6.2); White Blood Count 6.2 K/mm3 (4.4-11.0)
[2019-01-31 05:35] LABS: ALB/GLOB Ratio 0.7 RATIO (0.9-2.4); AST(SGOT) 178 U/L (15-37); Alanine Aminotransfer ALT/SGPT 86 U/L (16-61); Alkaline Phosphatase 158 U/L (45-117); Anion Gap 6 (5-15); BUN 6 mg/dL (7-18); BUN/Creat Ratio 7.1 RATIO (10-20); Calcium,Total 9.2 mg/dL (8.5-10.1); Chloride 102 mmol/L (98-107); Creatinine, Serum 0.84 mg/dL (0.70-1.30); EST Glomerular Filtration Rate 121 mL/min (>60); Est Glom Filt Rate - Afr Amer 146 mL/min (>60); Estimated Creatinine Clearance 155.89 ml/min; Globulin 4.2 g/dL (2.2-4.2); Glucose 151 mg/dL (74-106); Potassium 4.1 mmol/L (3.5-5.1); Protein, Total 7.2 g/dL (6.4-8.2); Sodium Level 136 mmol/L (136-145)
--- NOTE | 2019-01-31 07:16 | PCM.PN.HOSP ---
Patient Problems: Active and Suspected Problems (Last Updated 10/11/17 @ 13:13 by Bell Hendrickson) Alcohol dependence (Acute) Reason for Visit: Follow-up acute alcohol withdrawal Subjective: Patient is a 23-year-old gentleman presenting with acute alcohol withdrawal Objective: GENERAL: cooperative HEENT: Atraumatic; EYES; Anicteric, Normal Conjunctiva NECK; supple, normal thyroid, RESPIRATORY: Diminished to auscultation CARDIOVASCULAR: Regular S1 S2, GI: soft, normoactive bowel sounds, : No Renal angle tenderness; EXTREMITIES: No edema, no clubbing, MUSCULOSKELETAL: no muscle waisting NEURO: Awake; no lateralizing signs. SKIN: No Rash PSYCH; Flat affect Vitals/I&O's: Vital Signs Temp Pulse Resp BP Pulse Ox 98.2 F 91 18 136/97 H 96 01/31/19 04:03 01/31/19 04:03 01/31/19 04:03 01/31/19 04:03 01/31/19 04:03 Oxygen Delivery Method Room Air Weight: 134.2 kg Body Mass Index (BMI) 39.0 Intake and Output for Last 24 Hours 01/29/19 01/30/19 01/31/19 23:59 23:59 23:59 Intake Total 2400 / 2400 400 / 400 Balance 2400 / 2400 400 / 400 Laboratory Results 01/30/19 12:47: WBC 8.5, RBC 3.69 L, Hgb 14.3, Hct 40.5, MCV 109.8 H, MCH 38.8 H, MCHC 35.3, RDW Std Deviation 50.2 H, RDW Coeff of Lisa 12.3, Plt Count 276, MPV 9.4, Immature Gran % (Auto) 0.200, Neut % (Auto) 68.0, Lymph % (Auto) 20.7, [place] % (Auto) 6.4, Eos % (Auto) 3.2, Baso % (Auto) 1.5 H, Absolute Neuts (auto) 5.8, Absolute Lymphs (auto) 1.77, Nucleated RBC % 0 01/30/19 12:47: Sodium 139, Potassium 4.1, Chloride 103, Carbon Dioxide 24.0, Anion Gap 12, BUN 4 L, Creatinine 0.85, Estim Creat Clear Calc 154.06, Est GFR (MDRD) Af Amer 145, Est GFR (MDRD) Non-Af 119, BUN/Creatinine Ratio 4.7 L, Glucose 135 H, Calcium 9.9, Total Bilirubin 1.50 H, AST 326 H, ALT 117 H, Alkaline Phosphatase 184 H, Total Protein 8.4 H, Albumin 3.7, Globulin 4.7 H, Albumin/Globulin Ratio 0.8 L, Lipase 369 01/30/19 12:47: Ethyl Alcohol 4.0 01/30/19 12:47: Magnesium 1.9 01/30/19 13:20: Urine Opiates Screen NEGATIVE, Urine Methadone Screen NEGATIVE, Ur Barbiturates Screen NEGATIVE, Ur Phencyclidine Scrn NEGATIVE, Ur Amphetamines Screen NEGATIVE, U Methamphetamin-MDMA NEGATIVE, U Benzodiazepines Scrn NEGATIVE, Urine Cocaine Screen NEGATIVE, U Cannabinoids Screen NEGATIVE, Ur Drug Screen Comment 01/30/19 13:20: Urine Color Yellow, Urine Clarity Clear, Urine pH 7.0, Ur Specific [place] 1.010, Urine Protein Negative, Urine Glucose (UA) Normal, Urine Ketones 5 H, Urine Occult Blood Negative, Urine Nitrite Negative, Urine Bilirubin Negative, Urine Urobilinogen 1 H, Ur Leukocyte Esterase 25 H, Urine RBC 0-5 SEEN, Urine WBC 0 SEEN, Ur Squamous Epith Cells 0-5 SEEN, Urine Bacteria RARE, Urine Mucus 0 SEEN 01/30/19 14:22: Hepatitis A IgM Ab Pending, Hep Bs Antigen Pending, Hep B Core IgM Ab Pending, Hepatitis C Ab (EIA) Pending 01/30/19 16:13: POC Glucose 166 H 01/31/19 05:00: WBC 6.2, RBC 3.43 L, Hgb 13.5, Hct 38.4 L, MCV 112.0 H, MCH 39.4 H, MCHC 35.2, RDW Std Deviation 49.9 H, RDW Coeff of Lisa 12.0, Plt Count 206, MPV 9.3, Immature Gran % (Auto) 0.200, Neut % (Auto) 53.3, Lymph % (Auto) 33.0, [place] % (Auto) 5.8, Eos % (Auto) 6.1 H, Baso % (Auto) 1.6 H, Absolute Neuts (auto) 3.3, Absolute Lymphs (auto) 2.04, Nucleated RBC % 0 01/31/19 05:00: Sodium 136, Potassium 4.1, Chloride 102, Carbon Dioxide 28.0, Anion Gap 6, BUN 6 L, Creatinine 0.84, Estim Creat Clear Calc 155.89, Est GFR (MDRD) Af Amer 146, Est GFR (MDRD) Non-Af 121, BUN/Creatinine Ratio 7.1 L, Glucose 151 H, Calcium 9.2, Total Bilirubin 1.60 H, AST 178 H, ALT 86 H, Alkaline Phosphatase 158 H, Total Protein 7.2, Albumin 3.0 L, Globulin 4.2, Albumin/Globulin Ratio 0.7 L Current Medications Dextrose (D50w Syringe) 0 gm IV X1 PRN; Protocol PRN Reason: Hypoglycemia Dicyclomine HCl (Bentyl) 20 mg PO Q6H PRN PRN PRN Reason: abdominal discomfort Folic Acid (Folic Acid) 1 mg PO DAILYCM [facility] Stop: 02/02/19 08:01 Glucagon () 1 mg IM .X1 PRN PRN Reason: Hypoglycemia Hydroxyzine Pamoate (Vistaril Pamoate Capsule) 50 mg PO Q6H PRN PRN PRN Reason: Mild Anxiety (score 1/3) Lorazepam (Ativan) 2 mg PO Q2H PRN PRN; Protocol PRN Reason: CIWA score > 8 but <15 Last Admin: 01/30/19 18:11 Dose: 2 mg Documented by: Lorazepam (Ativan) 2 mg PO UD PRN; Protocol PRN Reason: CIWA score >/=15. Last Admin: 01/30/19 16:19 Dose: 2 mg Documented by: Lorazepam (Ativan) 2 mg IV Q2H PRN PRN; Protocol PRN Reason: CIWA score > 8 but <15 Lorazepam (Ativan) 2 mg IV UD PRN; Protocol PRN Reason: CIWA score >/=15. Lorazepam (Ativan) 1 mg PO Q4H RYAN; Taper Stop: 02/02/19 19:59 Last Admin: 01/31/19 04:05 Dose: 1 mg Documented by: Methocarbamol (Methocarbamol) 750 mg PO Q6H PRN PRN PRN Reason: Muscle Aches Last Admin: 01/31/19 00:04 Dose: 750 mg Documented by: Multivitamins ([facility]ivitamin) [facility] Ondansetron HCl (Zofran) 4 mg IV Q8H PRN PRN PRN Reason: NAUSEA/VOMITING Sodium Chloride () 10 - 40 ml IV UD PRN PRN Reason: SALINE FLUSH Thiamine HCl (Vitamin B1) 100 mg PO DAILYCM [facility] Stop: 02/02/19 08:01 STROKE Vital Signs/Narrative: Vital Signs Temp Pulse Resp BP Pulse Ox 01/31/19 04:03 98.2 F 91 18 136/97 H 96 Medical Necessity - Tobacco Use Smoking Status: Current some day smoker Tobacco Use: Cigarettes Assessment/Plan All Active Problems (Last Updated 10/11/17 @ 13:13 by Bell Hendrickson) Essential (primary) hypertension (Acute) Alcohol dependence (Acute) Patient is a 23-year-old gentleman presenting with acute alcohol withdrawal 1. Acute alcohol withdrawal ~patient has been admitted to regular nursing floor for medical stabilization using Lorazepam 2. Chronic alcohol dependence ~patient was counseled on cessation 3. Morbid obesity ~patient with BMI of 39.0 was counseled on lifestyle modification including weight loss 4. DVT prophylaxis ~ low risk did encourage early ambulation Active Medications Dextrose (D50w Syringe) 0 gm IV X1 PRN; Protocol PRN Reason: Hypoglycemia Dicyclomine HCl (Bentyl) 20 mg PO Q6H PRN PRN PRN Reason: abdominal discomfort Folic Acid (Folic Acid) [facility] Stop: 02/02/19 08:01 Last Admin: 01/31/19 07:55 Dose: 1 mg Documented by: Glucagon () 1 mg IM .X1 PRN PRN Reason: Hypoglycemia Hydroxyzine Pamoate (Vistaril Pamoate Capsule) 50 mg PO Q6H PRN PRN PRN Reason: Mild Anxiety (score 1/3) Lorazepam (Ativan) 2 mg PO Q2H PRN PRN; Protocol PRN Reason: CIWA score > 8 but <15 Last Admin: 01/30/19 18:11 Dose: 2 mg Documented by: Lorazepam (Ativan) 2 mg PO UD PRN; Protocol PRN Reason: CIWA score >/=15. Last Admin: 01/30/19 16:19 Dose: 2 mg Documented by: Lorazepam (Ativan) 2 mg IV Q2H PRN PRN; Protocol PRN Reason: CIWA score > 8 but <15 Lorazepam (Ativan) 2 mg IV UD PRN; Protocol PRN Reason: CIWA score >/=15. Lorazepam (Ativan) 1 mg PO Q4H RYAN; Taper Stop: 02/02/19 19:59 Last Admin: 01/31/19 07:55 Dose: 1 mg Documented by: Methocarbamol (Methocarbamol) 750 mg PO Q6H PRN PRN PRN Reason: Muscle Aches Last Admin: 01/31/19 07:58 Dose: 750 mg Documented by: Multivitamins (Multivitamin) [facility] Last Admin: 01/31/19 07:55 Dose: 1 tablet Documented by: Ondansetron HCl (Zofran) 4 mg IV Q8H PRN PRN PRN Reason: NAUSEA/VOMITING Sodium Chloride () 10 - 40 ml IV UD PRN PRN Reason: SALINE FLUSH Thiamine HCl (Vitamin B1) 100 mg PO DAILYCM [facility] Stop: 02/02/19 08:01 Last Admin: 01/31/19 07:55 Dose: 100 mg Documented by: Code Visit Inpatient E&M: 71904 Subs Hosp L2
[2019-01-31] MEDS: Folic Acid 1 MG Tablet PO (07:55)
[2019-01-31] MEDS: Thiamine Hydrochloride 100 MG Tablet PO (07:55)
[2019-01-31] MEDS: Multivitamins,Therapeutic Tablet 1 TABLET PO (07:55)
--- NOTE | 2019-01-31 10:18 | CASEMGMT ---
Social Work Note Pt is at [facility] for alcohol detox. SW met with pt, introduced self and role at [facility]. Pt is alert and orientated x3. SW asked pt about discharge plans. Pt states he plans on following up with [facility] at discharge for STEPS program. SW educated pt on Walk in assessments days and times and encouraged pt to follow up with [facility] at discharge. [facility] but did at one time had a counselor. SW did provide pt with additional treatment resources. Pt denied additional needs or concerns at this time. Plan: [facility] at discharge Louisa Floyd [employer], [employer]ORN [employer]OTOGR[employer]HER
[2019-01-31] MEDS: LORazepam 1 MG Tablet 2 MG PO ×2 (11:22→17:06)
[2019-01-31] MEDS: Dicyclomine 10 MG Capsule 20 MG PO ×2 (16:58→23:56)
[2019-01-31] MEDS: 0.9% Saline Lock 10 ML Syringe IV (23:57)
[2019-02-01] VITALS (9 sets, daily range): BP systolic 119–161; BP diastolic 78–110; PULSE 86–127; RESP 16–18; TEMP 36.7–37.1; O2SAT 94–98
[2019-02-01] MEDS: LORazepam 1 MG Tablet PO ×3 (06:40→20:00)
--- NOTE | 2019-02-01 07:46 | PCM.PN.HOSP ---
Patient Problems: Active and Suspected Problems (Last Updated 10/11/17 @ 13:13 by Bell Hendrickson) Alcohol dependence (Acute) Reason for Visit: acute alcohol withdrawal. Subjective: Patient seen still complains of feeling tremulous. Objective: GENERAL: cooperative HEENT: Atraumatic; EYES; Anicteric, Normal Conjunctiva NECK; supple, normal thyroid, RESPIRATORY: Diminished to auscultation CARDIOVASCULAR: Regular S1 S2, GI: soft, normoactive bowel sounds, : No Renal angle tenderness; EXTREMITIES: No edema, no clubbing, MUSCULOSKELETAL: no muscle waisting NEURO: Awake; no lateralizing signs. SKIN: No Rash PSYCH; Flat affect Vitals/I&O's: Vital Signs Temp Pulse Resp BP Pulse Ox 98.3 F 100 18 119/91 H 96 02/01/19 06:30 02/01/19 06:30 02/01/19 06:30 02/01/19 06:30 02/01/19 06:30 Oxygen Delivery Method Room Air Weight: 134.2 kg Body Mass Index (BMI) 39.0 Intake and Output for Last 24 Hours 01/30/19 01/31/19 02/01/19 23:59 23:59 23:59 Intake Total 2400 / 2400 800 / 800 200 / 200 Balance 2400 / 2400 800 / 800 200 / 200 Current Medications Dextrose (D50w Syringe) 0 gm IV X1 PRN; Protocol PRN Reason: Hypoglycemia Dicyclomine HCl (Bentyl) 20 mg PO Q6H PRN PRN PRN Reason: abdominal discomfort Last Admin: 01/31/19 23:56 Dose: 20 mg Documented by: Folic Acid (Folic Acid) [facility] Stop: 02/02/19 08:01 Last Admin: 01/31/19 07:55 Dose: 1 mg Documented by: Glucagon () 1 mg IM .X1 PRN PRN Reason: Hypoglycemia Hydroxyzine Pamoate (Vistaril Pamoate Capsule) 50 mg PO Q6H PRN PRN PRN Reason: Mild Anxiety (score 1/3) Lorazepam (Ativan) 2 mg PO Q2H PRN PRN; Protocol PRN Reason: CIWA score > 8 but <15 Last Admin: 01/31/19 11:22 Dose: 2 mg Documented by: Lorazepam (Ativan) 2 mg PO UD PRN; Protocol PRN Reason: CIWA score >/=15. Last Admin: 01/31/19 17:06 Dose: 2 mg Documented by: Lorazepam (Ativan) 2 mg IV Q2H PRN PRN; Protocol PRN Reason: CIWA score > 8 but <15 Lorazepam (Ativan) 2 mg IV UD PRN; Protocol PRN Reason: CIWA score >/=15. Lorazepam (Ativan) 1 mg PO Q6H RYAN; Taper Stop: 02/02/19 19:59 Last Admin: 02/01/19 06:40 Dose: 1 mg Documented by: Methocarbamol (Methocarbamol) 750 mg PO Q6H PRN PRN PRN Reason: Muscle Aches Last Admin: 01/31/19 23:55 Dose: 750 mg Documented by: Multivitamins (Multivitamin) [facility] Last Admin: 01/31/19 07:55 Dose: 1 tablet Documented by: Ondansetron HCl (Zofran) 4 mg IV Q8H PRN PRN PRN Reason: NAUSEA/VOMITING Sodium Chloride () 10 - 40 ml IV UD PRN PRN Reason: SALINE FLUSH Last Admin: 01/31/19 23:57 Dose: 10 ml Documented by: Thiamine HCl (Vitamin B1) 100 mg PO DAILYCM [facility] Stop: 02/02/19 08:01 Last Admin: 01/31/19 07:55 Dose: 100 mg Documented by: STROKE Vital Signs/Narrative: Vital Signs Temp Pulse Resp BP Pulse Ox 02/01/19 06:30 98.3 F 100 18 119/91 H 96 Medical Necessity - Tobacco Use Smoking Status: Current some day smoker Tobacco Use: Cigarettes Assessment/Plan All Active Problems (Last Updated 10/11/17 @ 13:13 by Bell Hendrickson) Essential (primary) hypertension (Acute) Alcohol dependence (Acute) Patient is a 23-year-old gentleman presenting with acute alcohol withdrawal 1. Acute alcohol withdrawal ~patient has been admitted to regular nursing floor for medical stabilization using Lorazepam 02/01/2019:Patient seen still complains of feeling tremulous. Continue with current treatment regimen with lorazepam 2. Chronic alcohol dependence ~patient was counseled on cessation 3. Morbid obesity ~patient with BMI of 39.0 was counseled on lifestyle modification including weight loss 4. DVT prophylaxis ~ low risk did encourage early ambulation Code Visit Inpatient E&M: 58219 Subs Hosp L2
[2019-02-01] MEDS: Dicyclomine 10 MG Capsule 20 MG PO ×2 (08:41→14:12)
[2019-02-01] MEDS: LORazepam 1 MG Tablet 2 MG PO ×3 (08:41→16:40)
[2019-02-01] MEDS: Methocarbamol 750 MG Tablet PO ×2 (08:42→16:40)
[2019-02-01] MEDS: Folic Acid 1 MG Tablet PO (08:42)
[2019-02-01] MEDS: Thiamine Hydrochloride 100 MG Tablet PO (08:42)
[2019-02-01] MEDS: Ondansetron 4 MG/2 ML Vial IV ×2 (08:42→16:40)
[2019-02-01] MEDS: Multivitamins,Therapeutic Tablet 1 TABLET PO (08:42)
[2019-02-01] MEDS: 0.9% Saline Lock 10 ML Syringe IV (08:43)
[2019-02-01 09:07] LABS: HEPATITIS B SURFACE AG Negative (Negative); Hepatitis A IgM Antibody Negative (Negative); Hepatitis B Core AB IgM Negative (Negative)
[2019-02-01] MEDS: hydrOXYzine PAM 25 MG Capsule 50 MG PO ×2 (14:13→20:18)
[2019-02-02 02:00] VITALS: BP 122/71; PULSE 90; RESP 18; TEMP 37; O2SAT 94
[2019-02-02] MEDS: LORazepam 1 MG Tablet PO ×2 (04:30→12:16)
--- NOTE | 2019-02-02 08:14 | DCINST_ITS ---
- Discharge Diagnoses Current Active Problems: Current Active and Chronic Problems (Last Updated 10/11/17 @ 13:13 by Bell Hendrickson) Alcohol dependence (Acute) Alcohol withdrawal (Chronic) You will use the following diet at home:: No restrictions Discharge Activity: May not drive while taking narcotic pain medications. Allergies/Adverse Reactions: Allergies No Known Allergies Allergy (Verified 10/06/17 17:36) Medications to take at Discharge NK 01/30/19 Primary Care Physician: Care Physician,No Primary [Primary Care Provider] - Please follow up with your Primary Care Physician in: in 1-2 weeks Test Results: Test results from this visit will be discussed in further detail at your follow- up appointment, if applicable. Please Follow Up With: 180 When: for counseling; please call on 02/03/2019 for an appointment Proposed Discharge Date: 02/02/19
--- NOTE | 2019-02-02 08:17 | PCM.DC.SUM ---
Discharge Date and Diagnosis - Problem List Patient Problems: Active and Suspected Problems (Last Updated 10/11/17 @ 13:13 by Bell Hendrickson) Alcohol dependence (Acute) Date of Admission: 01/30/19 Date of Discharge: 02/02/19 - Primary Discharge Diagnosis Active and Suspected Problems (Last Updated 10/11/17 @ 13:13 by Bell Hendrickson) Alcohol dependence (Acute) - Secondary Discharge Diagnosis Chronic Problems (Last Updated 10/11/17 @ 13:13 by Bell Hendrickson) Bipolar 1 disorder (Chronic) Anxiety and depression (Chronic) Essential (primary) hypertension (Chronic) Alcohol withdrawal (Chronic) Tobacco dependence (Chronic) Obesities, morbid (Chronic) Hospital Course and Treatment Summary of Care Provided: Patient is a 23-year-old gentleman presenting with acute alcohol withdrawal 1. Acute alcohol withdrawal ~patient has been admitted to regular nursing floor for medical stabilization using Lorazepam 02/01/2019:Patient seen still complains of feeling tremulous. Continue with current treatment regimen with lorazepam Of 819: Patient medical condition was deemed stable enough to be discharged. He was given the number for [facility] counseling services and instructed to call to set up appointment as outpatient. 2. Chronic alcohol dependence ~patient was counseled on cessation 3. Morbid obesity ~patient with BMI of 39.0 was counseled on lifestyle modification including weight loss 4. DVT prophylaxis ~ low risk did encourage early ambulation Patient Problems: Active and Suspected Problems (Last Updated 10/11/17 @ 13:13 by Bell Hendrickson) Alcohol dependence (Acute) Objective: GENERAL: cooperative HEENT: Atraumatic; EYES; Anicteric, Normal Conjunctiva NECK; supple, normal thyroid, RESPIRATORY: Diminished to auscultation CARDIOVASCULAR: Regular S1 S2, GI: soft, normoactive bowel sounds, : No Renal angle tenderness; EXTREMITIES: No edema, no clubbing, MUSCULOSKELETAL: no muscle waisting NEURO: Awake; no lateralizing signs. SKIN: No Rash PSYCH; Flat affect - Physical Exam Vitals/I&O's: Vital Signs Temp Pulse Resp BP Pulse Ox 98.6 F 90 18 122/71 H 94 02/02/19 02:00 02/02/19 02:00 02/02/19 02:00 02/02/19 02:00 02/02/19 02:00 Oxygen Delivery Method Room Air Weight: 134.2 kg Body Mass Index (BMI) 39.0 Intake and Output for Last 24 Hours 01/31/19 02/01/19 02/02/19 23:59 23:59 23:59 Intake Total 800 / 800 1100 / 1600 600 / 600 Output Total 0 / 0 Balance 800 / 800 1100 / 1600 600 / 600 Current Medications Dextrose (D50w Syringe) 0 gm IV X1 PRN; Protocol PRN Reason: Hypoglycemia Dicyclomine HCl (Bentyl) 20 mg PO Q6H PRN PRN PRN Reason: abdominal discomfort Last Admin: 02/01/19 14:12 Dose: 20 mg Documented by: Glucagon () 1 mg IM .X1 PRN PRN Reason: Hypoglycemia Hydroxyzine Pamoate (Vistaril Pamoate Capsule) 50 mg PO Q6H PRN PRN PRN Reason: Mild Anxiety (score 1/3) Last Admin: 02/01/19 20:18 Dose: 50 mg Documented by: Lorazepam (Ativan) 2 mg PO Q2H PRN PRN; Protocol PRN Reason: CIWA score > 8 but <15 Last Admin: 01/31/19 11:22 Dose: 2 mg Documented by: Lorazepam (Ativan) 2 mg PO UD PRN; Protocol PRN Reason: CIWA score >/=15. Last Admin: 02/01/19 16:40 Dose: 2 mg Documented by: Lorazepam (Ativan) 2 mg IV Q2H PRN PRN; Protocol PRN Reason: CIWA score > 8 but <15 Lorazepam (Ativan) 2 mg IV UD PRN; Protocol PRN Reason: CIWA score >/=15. Lorazepam (Ativan) 1 mg PO Q8H RYAN; Taper Stop: 02/02/19 19:59 Last Admin: 02/02/19 04:30 Dose: 1 mg Documented by: Methocarbamol (Methocarbamol) 750 mg PO Q6H PRN PRN PRN Reason: Muscle Aches Last Admin: 02/01/19 16:40 Dose: 750 mg Documented by: Multivitamins (Multivitamin) 1 tablet PO DAILYCM RYAN Last Admin: 02/01/19 08:42 Dose: 1 tablet Documented by: Ondansetron HCl (Zofran) 4 mg IV Q8H PRN PRN PRN Reason: NAUSEA/VOMITING Last Admin: 02/01/19 16:40 Dose: 4 mg Documented by: Sodium Chloride () 10 - 40 ml IV UD PRN PRN Reason: SALINE FLUSH Last Admin: 02/01/19 08:43 Dose: 20 ml Documented by: Discharge Activity: May not drive while taking narcotic pain medications. Home Medications: Medications to take at Discharge NK 01/30/19 Primary Care Physician: Care Physician,No Primary [Primary Care Provider] - Please follow up with your Primary Care Physician in: in 1-2 weeks Please Follow Up With: [facility] When: for counseling; please call on 02/03/2019 for an appointment Disposition: Home Minutes spent on discharge:: 32 Medical Necessity - Tobacco Use Smoking Status: Current some day smoker Tobacco Use: Cigarettes Meaningful Use Info Meaningful Use Diagnoses (Choose all that apply): None applicable Code Visit Inpatient E&M: 83436 Disch Hosp
[2019-02-02] MEDS: Multivitamins,Therapeutic Tablet 1 TABLET PO (09:42)
[2019-02-02] MEDS: Folic Acid 1 MG Tablet PO (09:43)
[2019-02-02] MEDS: Ondansetron 4 MG/2 ML Vial IV (09:43)
[2019-02-02] MEDS: Thiamine Hydrochloride 100 MG Tablet PO (09:43)
[2019-02-02 09:44] VITALS: BP 150/99; PULSE 130; RESP 18; TEMP 36.9; O2SAT 94
[2019-02-02 09:48] VITALS: BP 150/99; PULSE 130; RESP 18; TEMP 36.7; O2SAT 98
[2019-02-02] MEDS: LORazepam 1 MG Tablet 2 MG PO ×2 (09:53→21:42)
--- NOTE | 2019-02-02 12:22 | PCM.PN.HOSP ---
Patient Problems: Active and Suspected Problems (Last Updated 10/11/17 @ 13:13 by Bell Hendrickson) Alcohol dependence (Acute) Reason for Visit: Acute alcohol withdrawal Subjective: Patient was discharged earlier on in the day he however requested to stay in the hospital 1 additional day claiming he was homeless. He plans to reach out to [facility] in the morning for long-term. Objective: GENERAL: cooperative HEENT: Atraumatic; EYES; Anicteric, Normal Conjunctiva NECK; supple, normal thyroid, RESPIRATORY: Diminished to auscultation CARDIOVASCULAR: Regular S1 S2, GI: soft, normoactive bowel sounds, : No Renal angle tenderness; EXTREMITIES: No edema, no clubbing, MUSCULOSKELETAL: no muscle waisting NEURO: Awake; no lateralizing signs. SKIN: No Rash PSYCH; Flat affect Vitals/I&O's: Vital Signs Temp Pulse Resp BP Pulse Ox 98.1 F 130 H 18 150/99 H 98 02/02/19 09:48 02/02/19 09:48 02/02/19 09:48 02/02/19 09:48 02/02/19 09:48 Oxygen Delivery Method Room Air Weight: 134.2 kg Body Mass Index (BMI) 39.0 Intake and Output for Last 24 Hours 01/31/19 02/01/19 02/02/19 23:59 23:59 23:59 Intake Total 800 / 800 1100 / 1600 600 / 600 Output Total 0 / 0 Balance 800 / 800 1100 / 1600 600 / 600 Current Medications Dextrose (D50w Syringe) 0 gm IV X1 PRN; Protocol PRN Reason: Hypoglycemia Dicyclomine HCl (Bentyl) 20 mg PO Q6H PRN PRN PRN Reason: abdominal discomfort Last Admin: 02/01/19 14:12 Dose: 20 mg Documented by: Glucagon () 1 mg IM .X1 PRN PRN Reason: Hypoglycemia Hydroxyzine Pamoate (Vistaril Pamoate Capsule) 50 mg PO Q6H PRN PRN PRN Reason: Mild Anxiety (score 1/3) Last Admin: 02/01/19 20:18 Dose: 50 mg Documented by: Lorazepam (Ativan) 2 mg PO Q2H PRN PRN; Protocol PRN Reason: CIWA score > 8 but <15 Last Admin: 02/02/19 09:53 Dose: 1 mg Documented by: Lorazepam (Ativan) 2 mg PO UD PRN; Protocol PRN Reason: CIWA score >/=15. Last Admin: 02/01/19 16:40 Dose: 2 mg Documented by: Lorazepam (Ativan) 2 mg IV Q2H PRN PRN; Protocol PRN Reason: CIWA score > 8 but <15 Lorazepam (Ativan) 2 mg IV UD PRN; Protocol PRN Reason: CIWA score >/=15. Lorazepam (Ativan) 1 mg PO Q8H RYAN; Taper Stop: 02/02/19 19:59 Last Admin: 02/02/19 12:16 Dose: 1 mg Documented by: Methocarbamol (Methocarbamol) 750 mg PO Q6H PRN PRN PRN Reason: Muscle Aches Last Admin: 02/01/19 16:40 Dose: 750 mg Documented by: Multivitamins (Multivitamin) 1 tablet PO DAILYCM RYAN Last Admin: 02/02/19 09:42 Dose: 1 tablet Documented by: Ondansetron HCl (Zofran) 4 mg IV Q8H PRN PRN PRN Reason: NAUSEA/VOMITING Last Admin: 02/02/19 09:43 Dose: 4 mg Documented by: Sodium Chloride () 10 - 40 ml IV UD PRN PRN Reason: SALINE FLUSH Last Admin: 02/01/19 08:43 Dose: 20 ml Documented by: STROKE Vital Signs/Narrative: Vital Signs Temp Pulse Resp BP Pulse Ox 02/02/19 09:48 98.1 F 130 H 18 150/99 H 98 02/02/19 09:44 98.5 F 130 H 18 150/99 H 94 Medical Necessity - Tobacco Use Smoking Status: Current some day smoker Tobacco Use: Cigarettes Assessment/Plan All Active Problems (Last Updated 10/11/17 @ 13:13 by Bell Hendrickson) Alcohol dependence (Acute) Patient is a 23-year-old gentleman presenting with acute alcohol withdrawal 1. Acute alcohol withdrawal ~patient has been admitted to regular nursing floor for medical stabilization using Lorazepam 02/01/2019:Patient seen still complains of feeling tremulous. Continue with current treatment regimen with lorazepam ?02/02/2019:Patient was discharged earlier on in the day he however requested to stay in the hospital 1 additional day claiming he was homeless. He plans to reach out to 180 in the morning for long-term. 2. Chronic alcohol dependence ~patient was counseled on cessation 3. Morbid obesity ~patient with BMI of 39.0 was counseled on lifestyle modification including weight loss 4. DVT prophylaxis ~ low risk did encourage early ambulation Code Visit Inpatient E&M: 42067 Subs Hosp L2
[2019-02-02 14:44] VITALS: BP 126/91; PULSE 104; RESP 18; TEMP 36.9; O2SAT 97
[2019-02-02] MEDS: Methocarbamol 750 MG Tablet PO (14:48)
[2019-02-02] MEDS: hydrOXYzine PAM 25 MG Capsule 50 MG PO ×2 (14:49→21:12)
[2019-02-02] MEDS: Dicyclomine 10 MG Capsule 20 MG PO (21:13)
[2019-02-02 21:37] VITALS: BP 149/120; PULSE 124; RESP 20; TEMP 36.8; O2SAT 97
[2019-02-02 23:00] VITALS: BP 131/79; PULSE 104
[2019-02-03 03:36] VITALS: BP 122/86; PULSE 86; RESP 16; TEMP 37; O2SAT 97
[2019-02-03 08:06] VITALS: BP 141/96; PULSE 114; RESP 18; TEMP 37; O2SAT 96
[2019-02-03] MEDS: hydrOXYzine PAM 25 MG Capsule 50 MG PO (09:49)
[2019-02-03] MEDS: Multivitamins,Therapeutic Tablet 1 TABLET PO (09:49)
--- NOTE | 2019-02-03 11:24 | CASEMGMT ---
Social Work Note SW updated that pt was kept at [facility] due to pt being homeless and needed resources. Physician also updated this worker that pt was stating someone from [facility] will need to come to [facility] to speak with him. SW met with pt. SW updated pt that no one from [facility] will be coming to [facility] to speak with pt and that pt will need to go to [facility] to complete walk in assessment. SW again educated pt on walk in days and times. SW asked pt about transportation to [facility]. Pt states he will have someone available to transport him but that they won't be able to be at [facility] until after 1:00pm. SW updated pt that there is no check out time and again reiterated though that walk in assessments are only until 4:00pm. SW informed pt that if he is not able to make it to [facility] today then he can complete walk in assessment tomorrow. Pt states the only problem is I don't have anywhere to stay. SW educated pt on homeless shelters including [facility] and also informed pt that pt could go to hotel/motel to stay if he has the means to afford to do so. Pt states understanding. Plan: [facility] for walk in assessment. Pt states that he doesn't have place to stay but was educated on homeless shelters and motel/hotels that he can stay at. Louisa Floyd PHARMACOGENETICIST, VICE PRESIDENT OF INSTRUCTION
--- NOTE | 2019-02-03 11:37 | DCINST_ITS ---
- Discharge Diagnoses Current Active Problems: Current Active and Chronic Problems (Last Updated 10/11/17 @ 13:13 by Bell Hendrickson) Alcohol dependence (Acute) Alcohol withdrawal (Chronic) You will use the following diet at home:: No restrictions Your food should be the consistency of: Regular Your liquids should be the consistency of: Regular/Thin Discharge Activity: Return to Normal Activity, May not drive while taking narcotic pain medications. Weight Bearing Status: Full weight bearing Allergies/Adverse Reactions: Allergies No Known Allergies Allergy (Verified 10/06/17 17:36) Medications to take at Discharge NK 01/30/19 Primary Care Physician: Care Physician,No Primary [Primary Care Provider] - Please follow up with your Primary Care Physician in: in 1-2 weeks Test Results: Test results from this visit will be discussed in further detail at your follow- up appointment, if applicable. Please Follow Up With: 180 When: for counseling; please call on 02/03/2019 for an appointment Proposed Discharge Date: 02/02/19
[2019-02-03 12:40] VITALS: BP 138/88; PULSE 72; RESP 18; TEMP 36.8; O2SAT 95
[2019-02-03 20:23] LABS: Hep C Antibodies <0.1 s/co ratio (0.0-0.9)
--- NOTE | 2019-02-06 08:37 | PCM.DC.SUM ---
Discharge Date and Diagnosis Date of Admission: 01/30/19 Date of Discharge: 02/03/19 - Primary Discharge Diagnosis #1 acute alcohol withdrawal #2 elevated liver enzymes-probably secondary to chronic alcohol abuse #3 chronic alcoholism #4 essential hypertension - Secondary Discharge Diagnosis Chronic Problems (Last Updated 10/11/17 @ 13:13 by Bell Hendrickson) Bipolar 1 disorder (Chronic) Anxiety and depression (Chronic) Essential (primary) hypertension (Chronic) Alcohol withdrawal (Chronic) Tobacco dependence (Chronic) Obesities, morbid (Chronic) Hospital Course and Treatment Operations: None Procedures: None Summary of Care Provided: The patient is a 23 year old M was seen in the emergency room at [facility] requesting acute alcohol detox services, work-up in the emergency room included labs which showed elevated liver enzymes, alcohol level was 4, and patient complained of tremors and nervousness. Patient was admitted to [place] [address], he was placed on medications for acute alcohol withdrawal, information was provided to him regarding contacting [facility] for inpatient services at the time of discharge. During his hospitalization, he had no acute events. On 02/03/2019, patient was seen and examined and felt to be in stable condition for discharge: On examination he appeared in good health and spirits. Vital signs as documented. Skin warm and dry and without overt rashes. Neck without JVD. Lungs clear. Heart exam notable for regular rhythm, normal sounds and absence of murmurs, rubs or gallops. Abdomen unremarkable and without evidence of organomegaly, masses, or abdominal aortic enlargement. Extremities nonedematous. Neuro: Cranial nerves II through XII are grossly intact, no focal motor deficits were noted, sensation to light touch and pinprick intact. Psych: Patient is alert and oriented x3, he does not appear anxious or depressed On 02/03/2019, patient was seen and examined and felt to be in stable condition for discharge. - Physical Exam Vitals/I&O's: Vital Signs Temp Pulse Resp BP Pulse Ox 98.2 F 72 18 138/88 H 95 02/03/19 12:40 02/03/19 12:40 02/03/19 12:40 02/03/19 12:40 02/03/19 12:40 Oxygen Delivery Method Room Air Weight: 134.2 kg Body Mass Index (BMI) 39.0 Discharge Activity: Return to Normal Activity, May not drive while taking narcotic pain medications. Weight Bearing Status: Full weight bearing Home Medications: Medications to take at Discharge NK 01/30/19 Primary Care Physician: Care Physician,No Primary [Primary Care Provider] - Please follow up with your Primary Care Physician in: in 1-2 weeks Please Follow Up With: 180 When: for counseling; please call on 02/03/2019 for an appointment Disposition: Home Minutes spent on discharge:: 32 Patient Condition:: Stable Medical Necessity - Tobacco Use Smoking Status: Current some day smoker Tobacco Use: Cigarettes Meaningful Use Info Meaningful Use Diagnoses (Choose all that apply): None applicable Code Visit Inpatient E&M: 67231 Disch Hosp
== END 2019-02-03 14:00 | disposition home or self-care (01) | DRG 775 ==
LOC: ED 12:57 → MS3 14:39
PROVIDERS: Admitting Provider Student in an Organized Health Care Education/Training Program; Emergency Provider Emergency Medicine; Visit Provider Internal Medicine
DX: F10.239 Alcohol dependence with withdrawal, unspecified (principal); Z68.39 Body mass index [BMI] 39.0-39.9, adult; E66.01 Morbid (severe) obesity due to excess calories; F17.210 Nicotine dependence, cigarettes, uncomplicated; F31.9 Bipolar disorder, unspecified; F41.9 Anxiety disorder, unspecified; I10 Essential (primary) hypertension; Z59.0 Homelessness
CPT/HCPCS: 36415; 76705; 80053; 80074; 80307; 80320; 81001; 82962; 83690; 83735; 85025; 93005; 99283; J7030; A4216; G0480; J2405

== ENCOUNTER 2021-01-13 10:22 | Emergency (ER) | payer MEDICAID, SELFPAY ==
[2021-01-13 10:23] VITALS: BP 128/91; PULSE 139; RESP 18; TEMP 36.9; O2SAT 96; BMI 29.0
--- NOTE | 2021-01-13 10:59 | RAD_ITS ---
STUDY: X-RAY - LEFT FOOT CLINICAL: Male, 25 years old. Pain. TECHNIQUE: 3 view(s) of the foot. COMPARISON: None. FINDINGS: No acute fracture, dislocation or osseous destruction. Mild hallux valgus deformity. No significant soft tissue swelling. RAD/Foot min 3 Views IMPRESSION: Left foot intact Hallux valgus deformity Electronically Signed: Glenn Neville DO at 11:37 EST Tel , Service support ,
--- NOTE | 2021-01-13 11:12 | EX.ED.DYSGE1 ---
HPI History of Present Illness Chief Complaint: Lower Extremity Injury Narrative Narrative: Patient presents with left foot pain, over the past few months he has had intermittent foot pain on either foot, there is no trauma to this no known redness or significant swelling. He was seen at an urgent care and was sent here due to worry about vascular compromise. [facility] Medical History Anxiety and depression Bipolar 1 disorder History of traumatic head injury Home Medications ibuprofen 800 mg PO/SL PRN PRN 01/13/21 [History Last Taken Unknown] multivitamin 01/13/21 [History Last Taken Unknown] Allergy/AdvReac Type Severity Reaction Status Date / Time No Known Allergies Allergy Verified 01/13/21 10:25 Family History Mother Chronic mental illness Grandmother Diabetes Chronic mental illness Sister Chronic mental illness Grandfather Myocardial infarction CVA (cerebral vascular accident) Cancer Social History Smoking Status: Current some day smoker tobacco type: cigarettes alcohol intake: current alcohol intake frequency: 3 or more drinks per day Alcohol type: hard liquor substance use type: marijuana what type of physical activity do you participate in: none ROS ROS ED ROS Narrative Past medical history: Reviewed Medications: Reviewed Social history: Noncontributory Review of systems: Cardiovascular: He has no chest pain or shortness of breath. Musculoskeletal: As in HPI. Otherwise no calf pain or edema Skin: No abrasions or lacerations Neurological: No weakness or paresthesias Hematologic: No easy bleeding or easy bruising EXAM Physical Exam Narrative Exam Narrative: Physical exam General: Patient does not appear in significant distress . Head: Normocephalic, Atraumatic Neck: No C-spine tenderness Cardiovascular: Normal distal pulses Back: Nontender, Normal Inspection. Extremities: He has left foot pain, he has tenderness over the dorsum of the foot but there is no edema, no erythema or calor. Both DP and PT pulses are normal. His capillary refill is around the second. He has normal strength and sensation. No calf pain no lower extremity edema. Skin: No abrasions, no lacerations Neurological: Normal strength and sensation Const Vital Signs: 01/13/21 10:23 01/13/21 11:21 Temperature 98.4 F Temperature Source Temporal Pulse Rate 139 H 89 Respiratory Rate 18 Blood Pressure 128/91 H Blood Pressure Mean 103 Pulse Ox 96 98 Oxygen Delivery Method Room Air Room Air MDM MDM MDM Narrative Medical decision making narrative: Patient is found to have a hallux valgus deformities in both his feet. Otherwise he has normal exam normal x-rays and will be discharged with orthopedic follow-up. Radiography Diagnostic Testing: Clinical Impression(s) from Imaging Studies Foot X-Ray 01/13/21 10:59 IMPRESSION: Left foot intact Hallux valgus deformity Electronically Signed: Glenn Neville DO at 11:37 EST Tel , Service support , Foot X-Ray 01/13/21 11:13 IMPRESSION: Right foot intact Hallux valgus deformity Electronically Signed: Glenn Neville DO at 11:38 EST Tel , Service support , X-ray interpreted by me does not show any fracture. X-rays interpreted by radiologist shows hallux valgus deformity in both feet. Discharge Plan Triage Chief Complaint: Lower Extremity Injury ED Provider: Montana Gordon Dx/Rx/DC Orders Clinical Impression: Acquired hallux valgus of both feet Instructions: ED Foot Contusion Prescriptions: No Action ibuprofen 200 mg 800 mg PO/SL PRN PRN (Reason: Breakthrough Pain) RF: 0 multivitamin RF: 0 Primary Care Provider: Care Physician,No Primary Referrals: Ariel Pan DO [STAFF PHYSICIAN] - 3-5 Days Care Physician,No Primary [Primary Care Provider] - 2 Days Disposition Disposition: Home, Self Care
--- NOTE | 2021-01-13 11:13 | RAD_ITS ---
STUDY: X-RAY - RIGHT FOOT CLINICAL: Male, 25 years old. PAIN TECHNIQUE: 3 view(s) of the foot. COMPARISON: None. FINDINGS: No acute fracture, dislocation or osseous destruction. Hallux valgus deformity. No significant soft tissue swelling. RAD/Foot min 3 Views IMPRESSION: Right foot intact Hallux valgus deformity Electronically Signed: Glenn Neville DO at 11:38 EST Tel , Service support ,
[2021-01-13 11:21] VITALS: PULSE 89; O2SAT 98
--- NOTE | 2021-01-13 12:09 | CM.ED ---
SW Note Referral Source: Case Find Referral Reason: No Primary Care Physician (PCP) SW reviewed chart and noted that patient has no PCP. SW provided patient with list of [facility] and [facility] Physician List for reference. SW also provided patient with handout ?Where to go When?. No other issues or concerns voiced at this time. SW remains available for any additional needs. Plan: Provided patient with PCP information Irasema MENDOZA
[2021-01-13 12:16] VITALS: PULSE 90; RESP 15; O2SAT 98
== END 2021-01-13 12:18 | disposition home or self-care (01) ==
PROVIDERS: Emergency Provider Emergency Medicine
DX: M20.12 Hallux valgus (acquired), left foot (principal); M20.11 Hallux valgus (acquired), right foot; F17.210 Nicotine dependence, cigarettes, uncomplicated
CPT/HCPCS: 73630; 99282

== ENCOUNTER 2021-06-02 20:24 | Inpatient (IN) | payer MEDICAID, SELFPAY ==
[2021-06-02 20:24] VITALS: BP 168/120; PULSE 106; RESP 16; TEMP 36.6; O2SAT 98; BMI 21.1
--- NOTE | 2021-06-02 20:47 | EDS_ITS ---
HPI History of Present Illness Chief Complaint: Substance Abuse Detail of Chief Complaint: Substance abuse with request for detox Informant: patient Narrative Narrative: Patient presents to the emergency department requesting detox from alcohol as well as meth and cocaine and kratom. Patient states that he thinks he drank over half a gallon of vodka today. Patient also did large amount of kratom about 3 hours ago. Patient denies any chest pain or abdominal pain. Patient has a friend in the hospital that is also going through withdrawal symptoms currently. He denies feeling suicidal or homicidal currently. Patient apparently has made remarks to friends about wanting to harm himself. Prior similar symptoms: Yes PFSH PFSH Medical History Anxiety and depression Bipolar 1 disorder History of traumatic head injury Home Medications ibuprofen 800 mg PO/SL PRN PRN 01/13/21 [History Last Taken Unknown] multivitamin 01/13/21 [History Last Taken Unknown] Allergy/AdvReac Type Severity Reaction Status Date / Time No Known Allergies Allergy Verified 06/02/21 20:27 Family History Mother Chronic mental illness Grandmother Diabetes Chronic mental illness Sister Chronic mental illness Grandfather Myocardial infarction CVA (cerebral vascular accident) Cancer Social History Smoking Status: Current some day smoker tobacco type: cigarettes alcohol intake: current alcohol intake frequency: 3 or more drinks per day Alcohol type: hard liquor substance use type: marijuana what type of physical activity do you participate in: none ROS ROS ED ROS Narrative Agitation Constitutional Constitutional ED: Reports systems reviewed and no addt'l complaints, except as documented; Denies body ache(s), change in weight or chills Eyes Eyes: Denies acute decrease in peripheral vision, change in vision, double vision or loss of vision ENT ENT ED: Reports none; Denies ear pain, lip swelling, loss taste/smell, neck pain, otalgia or sore throat Cardiovascular Cardiovascular: Reports none; Denies abdominal pain, chest pain with activity, leg edema, lightheadedness, palpitations, rapid heart rate or syncope Respiratory/Chest Respiratory/Chest: Reports none; Denies change in mental status, dry cough, dyspnea, hemoptysis, shortness of breath at rest or shortness of breath with exertion Gastrointestinal Gastrointestinal: Reports none; Denies abdominal pain, change in stool character, diarrhea, hematemesis, hematochezia, melena, rectal bleeding or vomiting Genitourinary Genitourinary ED: Reports none; Denies abdominal discomfort, anuria, dysuria, genital pain or polyuria Musculoskeletal Musculoskeletal: Reports none; Denies arthralgias, back pain, difficulty walking, extremity pain, muscle weakness or myalgias Integumentary Reports none; Denies abscess or rash Neurologic Neurologic: Reports none; Denies abnormal gait, confusion, focal weakness, frequent falls, headache(s), loss of vision, numbness, paresthesias, radicular pain, vertigo or weakness Psychiatric Psychiatric: Reports systems reviewed and no addt'l complaints, except as documented and none; Denies behavioral changes, confusion, difficulty concentrating, hallucinations, suicidal ideation, tactile hallucinations or visual hallucinations Endocrine Endocrinology: Denies none, cold intolerance, excessive sweating, fatigue or heat intolerance Hematologic/Lymphatic Hematologic/Lymphatic: Reports none; Denies anemia, easy bleeding or easy bru ising Allergic/Immunologic Allergic/Immunologic ED: Denies as per HPI, none, lip swelling, mouth swelling, throat swelling, tongue swelling or hives EXAM Physical Exam Const Vital Signs: 06/02/21 20:24 Temperature 98 F Temperature Source Temporal Pulse Rate 106 H Respiratory Rate 16 Blood Pressure 168/120 H Blood Pressure Mean 136 Pulse Ox 98 Oxygen Delivery Method Room Air Positive well nourished and well developed General Appearance ED: well developed and NAD HEENT Reports TM's clear and moist mucous membranes normocephalic and atraumatic; Negative for trauma or tenderness Tympanic Membrane ED: Yes TM's clear Eyes PERRL and EOMs intact bilaterally General Eye ED: Negative for pale conjunctiva or scleral icterus Neck no lymphadenopathy, supple and no JVD General: Negative for tenderness Chest Wall inspection of chest normal and palpation of chest normal Chest: Negative for tenderness Resp normal respiratory effort and clear to auscultation bilaterally Effort and Inspection: Negative for respiratory distress or pain with movement Auscultation: Negative for rhonchi, wheezes or diminished lung sounds Cardio regular rate, regular rhythm, S1 normal heart sound, S2 normal heart sound and no murmurs Peripheral Pulses: pulses 2+ throughout GI normal to inspection, nondistended, normoactive bowel sounds, soft to palpation, non-tender, non-distended and no masses Back/Spine no CVA tenderness and no thoracic nor lumbar tenderness Extremity normal to inspection General Extremety ED: Negative for edema General Extremity: Negative for edema Neuro oriented x3, CN's II-XII intact bilaterally, no sensory deficits noted and gait normal Sensorium / Orientation: awake, alert, oriented to person, oriented to place and oriented to time Motor Exam: strength 5/5 throughout and strength abnormal Psych mental status grossly normal Psych Narrative: Labile mood Attitude: agitated Mood & Affect: anxious Skin no rashes or lesions noted and no wounds MDM MDM MDM Narrative Medical decision making narrative: Case discussed with hospitalist will evaluate patient for admission for detox from alcohol and opiates. Patient had basic labs ordered as well as toxicology screen all of which are currently pending. Lab Data Attestation: I reviewed the patient's lab results. Labs: Laboratory Results - last 24 hr 06/02/21 21:00 Ur Drug Screen Comment Discharge Plan Triage Chief Complaint: Substance Abuse ED Provider: Ana Escamilla Dx/Rx/DC Orders Clinical Impression: Alcohol intoxication, Opiate abuse, continuous, Desire for detoxification Prescriptions: No Action ibuprofen 200 mg 800 mg PO/SL PRN PRN (Reason: Breakthrough Pain) RF: 0 multivitamin RF: 0 Primary Care Provider: Care Physician,No Primary Referrals: Care Physician,No Primary [Primary Care Provider] - Disposition Disposition: Acute Care Hospital [facility]
[2021-06-02] MEDS: LORazepam 1 MG Tablet PO (21:00)
[2021-06-02 21:14] LABS: Absolute Lymphocyte Count 4.68 X10^3/uL (0.83-4.51); Absolute Neutrophil Count 7.5 X10^3/uL (2.0-7.7); Basophil# 0.17 X10^3/uL; Basophil% 1.2 % (0-1); Eosinophil# 0.86 X10^3/uL; Eosinophils% 6.3 % (0-5); Hematocrit 46.8 % (40-54); Hemoglobin 16.7 g/dL (13.0-16.5); Lymphocyte # 4.68 X10^3/ul (0.83-4.51); Lymphocyte % 34.1 % (19-41); Mean Corp Hgb Conc 35.7 g/dL (32-36); Mean Corpuscular Hgb 32.1 pg (27.0-32.0); Mean Platelet Vol. 9.4 fl (6.2-12.0); Monocyte# 0.43 X10^3/uL; Monocyte% 3.1 % (0-10); NRBC Flagged by Analyzer 0 % (0-5); Neutrophil # 7.54 X10^3/uL (2.7-7.7); POSITIVE MORPHOLOGY YES; Platelet Count 284 K/mm3 (150-450); RBC Distribution Width CV 12.3 % (11.6-14.6); RBC Distribution Width SD 39.9 fl (35.1-43.9); White Blood Count 13.7 K/mm3 (4.4-11.0)
[2021-06-02 21:24] LABS: Amphetamine Urine VISTA NEGATIVE (<1000 ng/mL); Barbiturate Urine VISTA NEGATIVE (< 200 ng/mL); Benzodiazepine Urine VISTA NEGATIVE (< 200 ng/mL); Cocaine Urine VISTA NEGATIVE (< 300 ng/mL); Ecstacy Urine VISTA NEGATIVE (< 500 ng/mL); Methadone Urine VISTA NEGATIVE (< 300 ng/mL); PCP Urine VISTA NEGATIVE (< 25 ng/mL); THC Urine VISTA NEGATIVE (< 50 ng/mL); Vista UDS pH Range 6
--- NOTE | 2021-06-02 21:27 | HP.PCM.HOS_ITS ---
HPI - General General Date of Admission: 06/02/21 Date of Service: 06/02/21 Chief Complaint: EtOH, Opiate withdrawal HPI Narrative The patient is a 25 y/o M w/ PMHx: Polysubstance abuse (Cannbis, EtOH specifically hard liquor, last use 1/2 gallon vodka earlier in the day, Opiates specifically Cocaine, used via snorting, last use > 24 hours as well as kratom 3 hours prior to ED presentation (powder mixed with liquid and ingested)), Tobacco use who presents to the [facility] ED on 06/02/21 with ongoing substance abuse, both EtOH and opiates with acute EtOH withdrawal and acute Opiate withdrawal, onset starting on day of presentation, progressively worsening with onset of nausea, tremors, agitation and intermittent fatigue, diaphoresis, body aches, piloerection, restless legs, tactile disturbances. He notes interest in attaining both clean and sober status. Work-up in the ED included T 98, heart rate 60, BP 108/60, respiratory rate 18, 99% room air, CBC with WC 3 #7, hemoglobin 16.7, platelet 284 with lymphocytosis, CMP with potassium 2.9, total bilirubin 0.5, AST/LT 65/56, alk phos 105, UDS, EtOH level 375. [facility] Medical History (Updated 06/02/21 @ 22:[address] Ivis Armendariz MD) Anxiety and depression Bipolar 1 disorder History of traumatic head injury Tobacco dependence Home Medications NK 06/02/21 [History Last Taken Unknown] Allergy/AdvReac Type Severity Reaction Status Date / Time No Known Allergies Allergy Verified 06/02/21 20:27 Family History Mother Chronic mental illness Grandmother Diabetes Chronic mental illness Sister Chronic mental illness Grandfather Myocardial infarction CVA (cerebral vascular accident) Cancer Surgical History (Updated 06/02/21 @ 22:[address] Ivis Armendariz MD) No history of previous surgery Social History (Updated 06/02/21 @ 22:[address] Ivis Armendariz MD) household members: none Smoking Status: Current some day smoker tobacco type: cigarettes alcohol intake: current alcohol intake frequency: 3 or more drinks per day Alcohol type: hard liquor details: 1/2 gallon hard liquor, usually vodka daily. substance use type: marijuana, crack/cocaine and other details: Kratom. what type of physical activity do you participate in: none ROS ROS Narrative Admission Review of Systems: CONSTITUTIONAL: No weight loss, fever, chills, + weakness or fatigue. HEENT: Eyes: No visual loss, blurred vision, double vision or yellow sclerae. Ears, Nose, Throat: No hearing loss, sneezing, congestion, runny nose or sore throat. SKIN: No rash or itching, lesions, wounds. CARDIOVASCULAR: No chest pain, chest pressure or chest discomfort, palpitations, edema, orthopnea, syncopal events. RESPIRATORY: No shortness of breath, cough or sputum, wheezing, hemoptysis. GASTROINTESTINAL: + Anorexia, nausea, No vomiting or diarrhea, abdominal pain, melena, BRBPR. GENITOURINARY: No dysuria, frequency, urgency or retention. NEUROLOGICAL: + Tremors, restlessness, agitation. No headache, dizziness, syncope, paralysis, ataxia, numbness or tingling in the extremities, focal weakness, change in bowel or bladder control, seizure. MUSCULOSKELETAL: + muscle, back pain, joint pain or stiffness. HEMATOLOGIC: No anemia, bleeding or bruising. LYMPHATICS: No enlarged nodes. No history of splenectomy. PSYCHIATRIC: + history of depression or anxiety. ENDOCRINOLOGIC: No reports of sweating, cold or heat intolerance. No polyuria or polydipsia. ALLERGIES: No history of asthma, hives, eczema or rhinitis. Vital Signs Vital Signs Vital Signs: 06/02/21 20:24 Temperature 98 F Temperature Source Temporal Pulse Rate 106 H Respiratory Rate 16 Blood Pressure 168/120 H Blood Pressure Mean 136 Pulse Ox 98 Oxygen Delivery Method Room Air Weight Weight: 160 lb Body Mass Index (BMI) 21.1 Physical Exam Narrative Physical Examination: General: Awake, alert, oriented x 3 but very agitated, talking fast, moving frequently in the bed, following commands but easily sidetracked, seated upright in the ED bed, agitated. Skin: Normal color, normal turgor, no icterus, no cyanosis. HEENT: AT/NC, EOMI, PERRLA, dry MM, no carotid bruits or JVD noted. Lungs: Diminished, > bases, no rales, ronchi or wheezing. Heart: Tachycardic with regular rhythm; no gallop, rub audible. Abdomen: Soft, NTTP, ND, normal BS, no HSM. Extremities: No cyanosis, clubbing, or edema. Neurological: Patient awake, alert, oriented as noted, cognitive function suspected altered from baseline intact; pupils equally reactive to light and accommodation, cranial nerves II-XII grossly normal, moving all 4 extremities, no focal deficits, strength preserved but difficult assessment given patient agitation, mild tremor. Psychiatric: Affect appears agitated, no acute evidence of depressive or anxiety feelings. Results Lab / Micro Data Result Diagrams: 06/02/21 21:05 06/02/21 21:05 Labs: Laboratory Results - last 24 hr 06/02/21 21:00: Urine Opiates Screen NEGATIVE, Urine Methadone Screen NEGATIVE, Ur Barbiturates Screen NEGATIVE, Ur Phencyclidine Scrn NEGATIVE, Ur Amphetamines Screen NEGATIVE, MDMA (Ecstasy) Screen NEGATIVE, U Benzodiazepines Scrn NE GATIVE, Urine Cocaine Screen NEGATIVE, U Cannabinoids Screen NEGATIVE, Ur Drug Screen Comment Assessment & Plan Assessment/Plan (1) Desire for detoxification: (2) Opiate abuse, continuous: (3) Alcohol intoxication: QUALIFIERS: Complication of substance-induced condition: uncomplicated Qualified Code(s): F10.920 - Alcohol use, unspecified with intoxication, uncomplicated PLAN: The patient is a 25 y/o M w/ PMHx: Polysubstance abuse (Cannbis, EtOH specifically hard liquor, last use 1/2 gallon vodka earlier in the day, Opiates specifically Cocaine, used via snorting, last use > 24 hours as well as kratom 3 hours prior to ED presentation (powder mixed with liquid and ingested)), Tobacco use who presents to the [facility] ED on 06/02/21 with ongoing substance abuse, both EtOH and opiates with acute EtOH withdrawal and acute Opiate withdrawal, onset starting on day of presentation. #1. Acute EtOH Withdrawal: Will admit to medical surgical floor, routine labs obtained in the ED upon presentation and pending upon presentation. Given interest in sobriety, will initiate and continue on protocol with taper course of Phenobarbital, scheduled gabapentin for seizure prophylaxis, as needed Catapres, Bentyl, Vistaril, IV fluids, IV antiemetics, Tylenol as needed for pain. Will consult Case management for assistance for transition to next level of rehabilitation care. Mag, phos pending. Maintain on CIWA protocol concurrently. #2. Acute Opiate Withdrawal: Given patient concurrent usage of several opiates, will additionally initiate and continue on protocol with tapering course of Subutex, as needed tylenol, ibuprofen, bowel regimen, gabapentin, Bentyl, Vistaril, methocarbamol, clonidine, PRN nightly trazodone for insomnia, IV fluids, IV antiemetics. Once patient clinically improved and completion of taper nearing will plan consultation with case management for transition to next level of rehabilitation care. #3. Polysubstance Abuse, Chronic: We will obtain HIV and hepatitis panel given significant polysubstance use although does deny IV substance use. Patient currently not candidate for hep C treatment currently as needs to be clean, sober x 6 months, documented attendance NA or AA meetings, counseling and ongoing negative drug screens. #4. Tobacco use: Encourage tobacco cessation, RT consulted for education, NR ordered. #5. Anxiety and Depression/Bipolar disorder: Prior regimens noted included aripiprazole, bupropion as well as hydroxyzine and lamotrigine but these have not been filled for some time, will clarify. #6. History TBI: Unfortunately complicates presentation and certainly can be correlation, encourage outpatient follow-up. #7. DVT Prophylaxis: Low risk, encourage ambulation. Charges/Coding Visit Charges Inpatient E&M: 58484 Init Hosp L3
[2021-06-02 21:34] LABS: ALB/GLOB Ratio 1.1 RATIO (0.9-2.4); AST(SGOT) 65 U/L (15-37); Alanine Aminotransfer ALT/SGPT 56 U/L (16-61); Albumin, Serum 4.5 g/dL (3.2-5.0); Alkaline Phosphatase 105 U/L (45-117); Anion Gap 11 (5-15); BUN 13 mg/dL (7-18); Calcium,Total 10.1 mg/dL (8.5-10.1); Chloride 106 mmol/L (98-107); EST Glomerular Filtration Rate 97 mL/min (>60); Est Glom Filt Rate - Afr Amer 118 mL/min (>60); Estimated Creatinine Clearance 116.93 ml/min; Globulin 4.1 g/dL (2.2-4.2); Glucose 99 mg/dL (74-106); Potassium 2.9 mmol/L (3.5-5.1); Protein, Total 8.6 g/dL (6.4-8.2); Sodium Level 141 mmol/L (136-145)
--- NOTE | 2021-06-02 21:37 | CM.ED ---
HINA Note Referral Source: Case Find Referral Reason: ADAN SANTAMARIA met with patient and his 2 support people in the room, both peer supports. Patient gave permission to speak to him in the presence of his support. Patient said that he is messed upand is here for detox. Patient said that he was 3 days from 6 months of being sober. Joe said thta he has been to 15 different treatment facilities and most often has been to [facility] and then they send me out. Patient was most recently linked with [facility]. Patient reports using 2 1/2 grams of meth for the last 2 days, cocaine 2 grams a day, and creaction a synthetic drug. Patient was educated on the rules of the program which include no phones, no visitors and belongings locked up and patient verbalized he agreed to the rules. Of note, patient reports his friend Jovani is on MS3 for [facility] program and SW advised that patient needs to focus on his issues and getting sober for himself. Sw advised that patient will be meeting with addiction therapist.Patient said I meet with them all day. HINA called and left message for Donovan from [facility] on her confidental voice mail. Plan: ADAN MENDOZA
[2021-06-02 21:40] LABS: Differential Indicated SCAN CRITERIA MET
[2021-06-02 21:51] LABS: Differential Comment SCANNED; Reactive Lymphocyte RARE
[2021-06-02 22:05] VITALS: BP 122/66; PULSE 62; RESP 16; TEMP 37.2; O2SAT 99
[2021-06-02 22:08] VITALS: BMI 23.9
[2021-06-02 22:11] LABS: Magnesium 1.9 mg/dL (1.6-2.6)
[2021-06-02 22:26] VITALS: BP 108/60; PULSE 60; RESP 18; TEMP 36.7; O2SAT 99
[2021-06-02] MEDS: Lactated Ringers 1,000 ML 125 ML IV (22:45)
[2021-06-02] MEDS: Phenobarbital 32.4 MG Tablet 64.8 MG PO (22:46)
[2021-06-02] MEDS: Na Biphos/Potassium Phosphate PACKET 1 PACKET PO (23:31)
[2021-06-03] VITALS (7 sets, daily range): BP systolic 100–120; BP diastolic 49–78; PULSE 56–97; RESP 16–20; TEMP 36.2–37.1; O2SAT 96–100
--- NOTE | 2021-06-03 00:30 | NURSING ---
Patient resting at this time, COWs not done, will continue to monitor.
--- NOTE | 2021-06-03 01:30 | NURSING ---
Patient resting with eyes closed, will continue to monitor.
[2021-06-03 02:05] LABS: Chlamydia Trachomatis by PCR Negative (Negative); Neisserai gonorrhoeae by PCR Negative (Negative); Probe Check PASS; Sample Adequacy Control PASS; Specimen Processing Control PASS
[2021-06-03] MEDS: Phenobarbital 32.4 MG Tablet 64.8 MG PO ×6 (02:38→21:44)
[2021-06-03 05:07] LABS: HIV - WCH Non-Reactive (Nonreactive)
[2021-06-03] MEDS: Ibuprofen 600 MG Tablet PO (06:23)
[2021-06-03] MEDS: Methocarbamol 750 MG Tablet 1500 MG PO ×2 (06:25→14:54)
[2021-06-03 07:21] LABS: AST(SGOT) 40 U/L (15-37); Alanine Aminotransfer ALT/SGPT 39 U/L (16-61); Albumin, Serum 3.3 g/dL (3.2-5.0); Alkaline Phosphatase 81 U/L (45-117); Anion Gap 8 (5-15); BUN 11 mg/dL (7-18); BUN/Creat Ratio 14.6 RATIO (10-20); Calcium,Total 8.7 mg/dL (8.5-10.1); Chloride 111 mmol/L (98-107); Creatinine, Serum 0.76 mg/dL (0.70-1.30); EST Glomerular Filtration Rate 134 mL/min (>60); Est Glom Filt Rate - Afr Amer 162 mL/min (>60); Estimated Creatinine Clearance 169.38 ml/min; Globulin 3.2 g/dL (2.2-4.2); Glucose 126 mg/dL (74-106); Phosphorus 5.2 mg/dL (2.5-4.9); Potassium 3.5 mmol/L (3.5-5.1); Protein, Total 6.5 g/dL (6.4-8.2); Sodium Level 144 mmol/L (136-145)
[2021-06-03] MEDS: Thiamine Hydrochloride 100 MG Tablet PO (10:45)
[2021-06-03] MEDS: Folic Acid 1 MG Tablet PO (10:45)
[2021-06-03] MEDS: Na Biphos/Potassium Phosphate PACKET 1 PACKET PO ×4 (10:46→21:43)
--- NOTE | 2021-06-03 11:59 | PN.HOSP_ITS ---
Subjective Subjective Patient drinks half gallon of vodka every day and uses opioids heroine. Patient was using IV opioids before snorts now. Objective Data Objective Data Vital Signs: Vital Signs Temp Pulse Resp BP Pulse Ox 98.1 F 80 16 111/65 98 06/03/21 08:51 06/03/21 08:51 06/03/21 08:51 06/03/21 08:51 06/03/21 08:51 Oxygen Delivery Method Room Air Weight: 181 lb 7.047 oz Body Mass Index (BMI) 23.9 Intake & Output: Intake and Output for Last 24 Hours 06/01/21 06/02/21 06/03/21 23:59 23:59 23:59 Intake Total 3.5 / 3.5 1739.1633 / 1739.1633 Output Total 300 / 300 Balance 3.5 / 3.5 1439.1633 / 1439.1633 Lab / Micro Data Result Diagrams: 06/02/21 21:05 06/03/21 05:50 Labs: Laboratory Results - last 24 hr 06/02/21 21:00: Urine Opiates Screen NEGATIVE, Urine Methadone Screen NEGATIVE, Ur Barbiturates Screen NEGATIVE, Ur Phencyclidine Scrn NEGATIVE, Ur Amphetamines Screen NEGATIVE, MDMA (Ecstasy) Screen NEGATIVE, U Benzodiazepines Scrn NEGA TIVE, Urine Cocaine Screen NEGATIVE, U Cannabinoids Screen NEGATIVE, Ur Drug Screen Comment 06/02/21 21:00: Chlam trachomat DNA PCR Negative, N.gonorrhoeae DNA (PCR) Negati ve 06/02/21 21:05: WBC 13.7 H, RBC 5.20, Hgb 16.7 H, Hct 46.8, MCV 90.0, MCH 32.1 H , MCHC 35.7, RDW Std Deviation 39.9, RDW Coeff of Lisa 12.3, Plt Count 284, MPV 9.4, Immature Gran % (Auto) 0.300, Neut % (Auto) 55.0, Lymph % (Auto) 34.1, Mellette % (Auto) 3.1, Eos % (Auto) 6.3 H, Baso % (Auto) 1.2 H, Absolute Neuts (auto) 7.5, Absolute Lymphs (auto) 4.68 H, Nucleated RBC % 0, Differential Comment SCANNED, Reactive Lymphocytes RARE 06/02/21 21:05: Sodium 141, Potassium 2.9 L, Chloride 106, Carbon Dioxide 24.0, Anion Gap 11, BUN 13, Creatinine 1.00, Estim Creat Clear Calc 116.93, Est GFR (MDRD) Af Amer 118, Est GFR (MDRD) Non-Af 97, BUN/Creatinine Ratio 13.0, Glucose 99, Calcium 10.1, Total Bilirubin 0.50, AST 65 H, ALT 56, Alkaline Phosphatase 105, Total Protein 8.6 H, Albumin 4.5, Globulin 4.1, Albumin/Globulin Ratio 1.1 06/02/21 21:05: Ethyl Alcohol 375.0 H* 06/02/21 21:38: Phosphorus 2.0 L, Magnesium 1.9 06/02/21 21:38: HIV 1&2 Antibody Non-Reactive 06/03/21 05:50: Sodium 144, Potassium 3.5, Chloride 111 H, Carbon Dioxide 25.0, Anion Gap 8, BUN 11, Creatinine 0.76, Estim Creat Clear Calc 169.38, Est GFR (MDRD) Af Amer 162, Est GFR (MDRD) Non-Af 134, BUN/Creatinine Ratio 14.6, Glucose 126 H, Calcium 8.7, Phosphorus 5.2 H, Total Bilirubin 0.30, AST 40 H, AL T 39, Alkaline Phosphatase 81, Total Protein 6.5, Albumin 3.3, Globulin 3.2, Albumin/Globulin Ratio 1.0 Physical Exam Narrative General: Awake, oriented x3. HEENT: Atraumatic, PERRLA, EOMI, Normocephalic Oral: No Gingival or Mucosal Lesions/ Ulcerations Neck: Supple, No JVD, Negative Carotid Bruits Lungs: Air entry diminished in bilateral lung bases. No crepitation/rhonchi Cardiovascular: Regular rate, Regular Rhythm, Normal S1, Normal S2, No murmurs Abdomen: Bowel Sounds Present, Soft, Non Tender, Non-Distended : No renal angle tenderness. No suprapubic tenderness. Extremities: No edema, Capillary Refill Less than 3 Seconds Skin: No rashes, No breakdown. Needle chavez over upper extremities Musculoskeletal: No Tenderness to Palpation of Joints or Extremities Neurological: Cranial nerves II-XII grossly intact, DTR 2+/4 and Symmetrical, Neuro grossly intact Psych/Mental Status: Normal Affect, Appropriate Assessment & Plan Assessment/Plan (1) Desire for detoxification: (2) Opiate abuse, continuous: (3) Alcohol intoxication: QUALIFIERS: Complication of substance-induced condition: uncomplicated Qualified Code(s): F10.920 - Alcohol use, unspecified with intoxication, uncomplicated PLAN: The patient is a 25 y/o M with history of chronic alcohol use, cannabis cocaine snorting and Kratom last use about 24 hours prior to admission. #1. Acute EtOH Withdrawal syndrome with history of chronic alcohol use and dependence: Patient drinks half gallon of vodka every day. On phenobarbitone along with other adjunctive medications including gabapentin, Bentyl, Vistaril, Catapres and IV fluid. As needed antiemetics. CIWA monitoring. Potassium 3.5, low normal level replaced. Magnesium normal. Hyperphosphatemia, phosphorus 5.2. consult Case management for evaluation for drug rehab #2. Acute Opiate Withdrawal syndrome with chronic opioid use and dependence: On buprenorphine along with other supportive medications. CINA monitoring. #3. Polysubstance Abuse, Chronic: We will obtain HIV and hepatitis panel given significant polysubstance use although does deny IV substance use. Patient currently not candidate for hep C treatment currently as needs to be clean, sober x 6 months, documented attendance NA or AA meetings, counseling and ongoing negative drug screens. #4. Tobacco use: Encourage tobacco cessation. On nicotine patch #5. Anxiety and Depression/Bipolar disorder: It seems patient was on aripiprazole, bupropion as well as hydroxyzine and lamotrigine. Pharmacy to clear. #6. History TBI: Follow with PCP #7. DVT Prophylaxis: Low risk, encourage ambulation. Charges/Coding Visit Charges Inpatient E&M: 23988 Subs Hosp L2
--- NOTE | 2021-06-03 12:00 | ADDICTION ---
This life insurance underwriter met with PT to conduct ASAM, MSE, AUDIT, DUDIT assessments and to plan for d/c. PT A+Ox4 and participated actively. All assessments completed, and placed in PT's chart. PT plans to f/u with individual counselor at [facility] for follow-up counseling services. PT did not indicate a need for transportation post d/c from [facility].
[2021-06-03] MEDS: Potassium Chloride Oral Tablet 20 MEQ 40 MEQ PO (14:57)
[2021-06-03] MEDS: Dicyclomine 10 MG Capsule 20 MG PO (18:35)
[2021-06-03] MEDS: hydrOXYzine PAM 25 MG Capsule 50 MG PO (19:36)
[2021-06-04] VITALS (8 sets, daily range): BP systolic 96–119; BP diastolic 64–71; PULSE 45–81; RESP 16–18; TEMP 36.5–36.9; O2SAT 97–100
[2021-06-04] MEDS: Phenobarbital 32.4 MG Tablet 64.8 MG PO ×5 (02:04→23:20)
--- NOTE | 2021-06-04 08:19 | PN.HOSP_ITS ---
Subjective Subjective Patient still feeling sleepy and symptomatic withdrawal symptoms. No active participation in conversation. Objective Data Objective Data Vital Signs: Vital Signs Temp Pulse Resp BP Pulse Ox 97.7 F L 45 L 16 96/64 100 06/04/21 05:57 06/04/21 05:57 06/04/21 05:57 06/04/21 05:57 06/04/21 05:57 Oxygen Delivery Method Room Air Weight: 181 lb 7.047 oz Body Mass Index (BMI) 23.9 Intake & Output: Intake and Output for Last 24 Hours 06/02/21 06/03/21 06/04/21 23:59 23:59 23:59 Intake Total 3.5 / 3.5 2565.6633 / 2565.6633 120 / 120 Output Total 300 / 300 Balance 3.5 / 3.5 2265.6633 / 2265.6633 120 / 120 Lab / Micro Data Result Diagrams: 06/02/21 21:05 06/03/21 05:50 Physical Exam Narrative General: Awake on verbal command. Oriented x3. HEENT: Atraumatic, PERRLA, EOMI, Normocephalic Oral: No Gingival or Mucosal Lesions/ Ulcerations Neck: Supple, No JVD, Negative Carotid Bruits Lungs: Air entry diminished in bilateral lung bases. No crepitation/rhonchi Cardiovascular: Regular rate, Regular Rhythm, Normal S1, Normal S2, No murmurs Abdomen: Bowel Sounds Present, Soft, Non Tender, Non-Distended : No renal angle tenderness. No suprapubic tenderness. Extremities: No edema, Capillary Refill Less than 3 Seconds Skin: No rashes, No breakdown. Needle chavez over upper extremities Musculoskeletal: No Tenderness to Palpation of Joints or Extremities Neurological: Cranial nerves II-XII grossly intact, DTR 2+/4 and Symmetrical, Neuro grossly intact Psych/Mental Status: Flat affect Assessment & Plan Assessment/Plan (1) Desire for detoxification: (2) Opiate abuse, continuous: (3) Alcohol intoxication: QUALIFIERS: Complication of substance-induced condition: uncomplicated Qualified Code(s): F10.920 - Alcohol use, unspecified with intoxication, uncomplicated PLAN: The patient is a 25 y/o M with history of chronic alcohol use, c annabis cocaine snorting and Kratom last use about 24 hours prior to admission. #1. Acute EtOH Withdrawal syndrome with history of chronic alcohol use and dependence: Patient drinks half gallon of vodka every day. On phenobarbitone along with other adjunctive medications including gabapentin, Bentyl, Vistaril, Catapres and IV fluid. As needed antiemetics. CIWA monitoring. Potassium 3.5, low normal level replaced. Magnesium normal. Hyperphosphatemia, phosphorus 5.2. consult Case management for evaluation for drug rehab 06/04 continue above management. CIWA score 0. 8 was 5 at 2 AM #2. Acute Opiate Withdrawal syndrome with chronic opioid use and dependence: On buprenorphine along with other supportive medications. CINA monitoring. #3. Polysubstance Abuse, Chronic: We will obtain HIV and hepatitis panel given significant polysubstance use although does deny IV substance use. Patient currently not candidate for hep C treatment currently as needs to be clean, sober x 6 months, documented attendance NA or AA meetings, counseling and ongoing negative drug screens. #4. Tobacco use: Encourage tobacco cessation. On nicotine patch #5. Anxiety and Depression/Bipolar disorder: It seems patient was on aripiprazole, bupropion as well as hydroxyzine and lamotrigine. Pharmacy to clear. #6. History TBI: Follow with PCP #7. DVT Prophylaxis: Low risk, encourage ambulation. Charges/Coding Visit Charges Inpatient E&M: 23060 Subs Hosp L2
[2021-06-04] MEDS: Na Biphos/Potassium Phosphate PACKET 1 PACKET PO ×4 (10:19→23:05)
[2021-06-04] MEDS: Folic Acid 1 MG Tablet PO (10:19)
[2021-06-04] MEDS: Thiamine Hydrochloride 100 MG Tablet PO (10:19)
[2021-06-04] MEDS: Acetaminophen 325 MG Tablet 650 MG PO (10:26)
[2021-06-05 01:40] VITALS: BP 110/65; PULSE 62; RESP 17; TEMP 36.6; O2SAT 98
[2021-06-05] MEDS: Phenobarbital 32.4 MG Tablet 64.8 MG PO ×2 (02:53→06:54)
[2021-06-05 04:00] VITALS: PULSE 95
[2021-06-05 06:00] VITALS: BP 115/70; PULSE 68; RESP 18; TEMP 36.4; O2SAT 97
[2021-06-05 07:04] VITALS: O2SAT 97
--- NOTE | 2021-06-05 08:17 | PCM.DC ---
Discharge Instructions Diet Discharge Diet: No restrictions Activity Discharge Activity: Return to Normal Activity and May Not Drive Dressing / Incision Call your doctor if you observe: Fever of 101 or Higher, Coldness, Increased Pain, Numbness or Tingling, Change in Color, Inability to urinate, Inability to have a bowel movement, Using more than 1 pad per hour, Shortness of breath, Dizziness, Fainting spells, Swelling in the ankles, Chest pain, Prolonged hiccupping, Increased palpitations (irregular heartbeat) and Calf discomfort Follow Up Care Test Results: Test results from this visit will be discussed in further detail at your follow-up appointment, if applicable. Discharge Plan Admission Admit Date/Time: 06/02/21 21:27 Primary Reason for Your Visit: Acute alcohol and opioid withdrawal syndrome Attending Provider: Francis Barnhart Primary Care Provider: Gianna Esqueda Primary Discharge Orders/Prescriptions Prescriptions: New folic acid 1 mg Tablet 1 mg PO DAILY@0800 Qty: 30 RF: 2 thiamine HCl (vitamin B1) [Vitamin B-1] 100 mg Tablet 100 mg PO DAILYCM Qty: 30 RF: 2 nicotine 21 mg/24 hr Patch 24 Hour 21 mg transdermal DAILY Qty: 28 RF: 0 Referrals / Follow Up: Care Physician,No Primary [Primary Care Provider] - Within 2 Weeks Disposition Disposition (needs filled in before D/C Order can be placed): Home, Self Care
[2021-06-05] MEDS: Folic Acid 1 MG Tablet PO (08:23)
[2021-06-05] MEDS: Thiamine Hydrochloride 100 MG Tablet PO (08:23)
[2021-06-05] MEDS: Na Biphos/Potassium Phosphate PACKET 1 PACKET PO (08:24)
[2021-06-05 09:47] VITALS: BP 104/55; PULSE 117; RESP 18; TEMP 36.3; O2SAT 98
--- NOTE | 2021-06-05 10:25 | DS.PCM_ITS ---
Providers Date of Admission: 06/02/21 Date of Discharge: 06/05/21 Primary Care Physician: Gianna Primary Care Phys Reason For Visit: OPIATE, ETOH WITHDRAWL Diagnosis Discharge Diagnosis (1) Desire for detoxification: Status: Acute (2) Opiate abuse, continuous: Status: Acute Code(s): F11.10 - Opioid abuse, uncomplicated (3) Alcohol intoxication: Status: Acute Code(s): F10.929 - Alcohol use, unspecified with intoxication, unspecified Qualifiers: Complication of substance-induced condition: uncomplicated Qualified Code(s): F10.920 - Alcohol use, unspecified with intoxication, uncomplicated Medications at Discharge Home Medications folic acid 1 mg PO DAILY@0800 #30 tab 06/05/21 nicotine 21 mg TRANSDERMAL DAILY #28 ea 06/05/21 thiamine HCl (vitamin B1) [Vitamin B-1] 100 mg PO DAILYCM #30 tab 06/05/21 Hospital Course Summary of Care Provided Hospital Course: The patient is a 25 y/o M with history of chronic alcohol use, cannabis cocaine snorting and Kratom last use about 24 hours prior to admission. #1. Acute EtOH Withdrawal syndrome with history of chronic alcohol use and dependence: Patient drinks half gallon of vodka every day. On phenobarbitone along with other adjunctive medications including gabapentin, Bentyl, Vistaril, Catapres and IV fluid. As needed antiemetics. CIWA monitoring. Potassium 3.5, low normal level replaced. Magnesium normal. Hyperphosphatemia, phosphorus 5.2. consult Case management for evaluation for drug rehab 06/04 continue above management. CIWA score 0. 8 was 5 at 2 AM 06/05: Patient symptom has resolved. Follow-up with [facility] as an outpatient for Vivitrol management #2. Acute Opiate Withdrawal syndrome with chronic opioid use and dependence: On buprenorphine along with other supportive medications. CINA monitoring. #3. Polysubstance Abuse, Chronic: We will obtain HIV and hepatitis panel given significant polysubstance use although does deny IV substance use. Patient currently not candidate for hep C treatment currently as needs to be clean, sober x 6 months, documented attendance NA or AA meetings, counseling and ongoing negative drug screens. #4. Tobacco use: Encourage tobacco cessation. On nicotine patch #5. Anxiety and Depression/Bipolar disorder: It seems patient was on aripipra zole, bupropion as well as hydroxyzine and lamotrigine. Pharmacy to clear. #6. History TBI: Follow with PCP #7. DVT Prophylaxis: Low risk, encourage ambulation. Physical Exam Narrative General: Awake on verbal command. Oriented x3. HEENT: Atraumatic, PERRLA, EOMI, Normocephalic Oral: No Gingival or Mucosal Lesions/ Ulcerations Neck: Supple, No JVD, Negative Carotid Bruits Lungs: Air entry diminished in bilateral lung bases. No crepitation/rhonchi Cardiovascular: Regular rate, Regular Rhythm, Normal S1, Normal S2, No murmurs Abdomen: Bowel Sounds Present, Soft, Non Tender, Non-Distended : No renal angle tenderness. No suprapubic tenderness. Extremities: No edema, Capillary Refill Less than 3 Seconds Skin: No rashes, No breakdown. Needle chavez over upper extremities Musculoskeletal: No Tenderness to Palpation of Joints or Extremities Neurological: Cranial nerves II-XII grossly intact, DTR 2+/4 and Symmetrical, Neuro grossly intact Psych/Mental Status: Appropriate Weight / BMI Weight Weight: 181 lb 7.047 oz Body Mass Index (BMI) 23.9 ABG / Lab / Microbiology Data Result Diagrams: 06/02/21 21:05 06/03/21 05:50 D/C Instructions Discharge Diet: No restrictions Call your doctor if you observe: Fever of 101 or Higher, Coldness, Increased Pain, Numbness or Tingling, Change in Color, Inability to urinate, Inability to have a bowel movement, Using more than 1 pad per hour, Shortness of breath, Di zziness, Fainting spells, Swelling in the ankles, Chest pain, Prolonged hiccupping, Increased palpitations (irregular heartbeat) and Calf discomfort Meaningful Use Info Meaningful Use Diagnoses (Choose all that apply): None applicable Discharge Plan Admission Admit Date/Time: 06/02/21 21:27 Primary Reason for Your Visit: Acute alcohol and opioid withdrawal syndrome Attending Provider: Francis Barnhart Primary Care Provider: Care Physician,Gianna Primary Discharge Orders/Prescriptions Prescriptions: New folic acid 1 mg Tablet 1 mg PO DAILY@0800 Qty: 30 RF: 2 thiamine HCl (vitamin B1) [Vitamin B-1] 100 mg Tablet 100 mg PO DAILYCM Qty: 30 RF: 2 nicotine 21 mg/24 hr Patch 24 Hour 21 mg transdermal DAILY Qty: 28 RF: 0 Referrals / Follow Up: Care Physician,No Primary [Primary Care Provider] - Within 2 Weeks Disposition Disposition (needs filled in before D/C Order can be placed): Home, Self Care Charges/Coding Visit Charges Inpatient E&M: 04292 Disch Hosp
[2021-06-07 12:00] LABS: HEPATITIS B SURFACE AG Negative (Negative); Hepatitis B Core Ab Total Negative (Negative); Hepatitis C Ab <0.1 s/co ratio (0.0-0.9)
[2021-06-07 16:33] LABS: Hep B Surface Antibodies Non Reactive (.)
== END 2021-06-05 12:13 | disposition home or self-care (01) | DRG 772 ==
LOC: ED 21:24 → PCU 21:37
PROVIDERS: Admitting Provider Family Medicine; Emergency Provider Emergency Medicine; Visit Provider Internal Medicine
DX: F11.23 Opioid dependence with withdrawal (principal); E83.39 Other disorders of phosphorus metabolism; F31.9 Bipolar disorder, unspecified; F14.13 Cocaine abuse, unspecified with withdrawal; F10.229 Alcohol dependence with intoxication, unspecified; F10.239 Alcohol dependence with withdrawal, unspecified; E87.6 Hypokalemia; F41.9 Anxiety disorder, unspecified; F17.210 Nicotine dependence, cigarettes, uncomplicated; Y90.8 Blood alcohol level of 240 mg/100 ml or more
CPT/HCPCS: 36415; 80053; 80307; 82077; 83735; 84100; 85025; 86703; 86704; 86705; 86706; 86707; 86803; 87340; 87350; 87491; 87591; 99285; J7040; J7050; J7120; A4216

== ENCOUNTER 2021-06-14 14:47 | Emergency (ER) | payer MEDICAID, SELFPAY ==
[2021-06-14 14:47] VITALS: BP 152/92; PULSE 81; RESP 18; TEMP 36.6; O2SAT 100; BMI 25.1
--- NOTE | 2021-06-14 15:11 | EKG12_ITS ---
Test Reason : CP Blood Pressure : / mmHG Vent. Rate : 074 BPM Atrial Rate : 074 BPM P-R Int : 156 ms QRS Dur : 092 ms QT Int : 410 ms P-R-T Axes : 067 054 060 degrees QTc Int : 455 ms Normal sinus rhythm Normal ECG Confirmed by STEFANIA MAJANO, EMERALD ([id number]), film editor PRAVEEN CHANG ([id number]) on 06/15/2021 8:46:23 AM Referred By: ARLEN Confirmed By:EMERALD AGUIAR MD
--- NOTE | 2021-06-14 15:12 | ED.VIS.CHEST ---
HPI History of Present Illness Chief Complaint: Chest Pain Informant: patient Onset/Context/Timing Onset: Hours (2-3) Activity at onset: gradual and onset (After ingesting kratom earlier in the day) Timing: Continuous Quality: Positive for Tightness Location: - (Epigastrium/lower substernal. No radiation or migration.) Current Severity: Mild Maximum Severity: Moderate Worsened By: Nothing; Not Worsened By Exertion, Movement of Arm, Movement of Torso, Breathing and Coughing Relieved By: Nothing (Nothing in particular) Associated Symptoms: Positive for Nausea; Negative for Vomiting, Diaphoresis, Dyspnea, Cough, Fever, Lightheadedness and Palpitations Narrative Narrative: Patient states he ingested craton powder that he dissolved in some liquid this morning. He states his purpose in doing this was to treat his anxiety. He states he received it from a [employer] shop. Subsequently he started feeling funny all over and having this discomfort in his high epigastrium/lower retrosternal area. No dyspnea or palpitations or near syncope or vomiting. He states this is only the second time he has ever ingested this, and this was a higher dose than the first time he used it. The first time he had none of the symptoms. He states he did this because he is very stressed lately and feeling anxious. 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 He was sober for 6 months and recently relapsed and states this was despite going to meetings, he has been to 180, and he wants to stop using. He denies any history of heart problems. He does not smoke cigarettes. He takes no prescriptions for other medical problems including his bipolar disorder and anxiety. He denies any suicidal ideation. He states he just wants to make sure that he is not having anything dangerous right now. [facility] Medical History Anxiety and depression Bipolar 1 disorder Desire for detoxification History of traumatic head injury Opiate abuse, continuous Tobacco dependence Home Medications folic acid 1 mg PO DAILY@0800 #30 tab 06/05/21 [Rx Last Taken Unknown] nicotine 21 mg TRANSDERMAL DAILY #28 ea 06/05/21 [Rx Last Taken Unknown] thiamine HCl (vitamin B1) [Vitamin B-1] 100 mg PO DAILYCM #30 tab 06/05/21 [Rx Last Taken Unknown] Allergy/AdvReac Type Severity Reaction Status Date / Time No Known Allergies Allergy Verified 06/14/21 14:51 Family History Mother Chronic mental illness Grandmother Diabetes Chronic mental illness Sister Chronic mental illness Grandfather Myocardial infarction CVA (cerebral vascular accident) Cancer Surgical History No history of previous surgery Social History household members: none Smoking Status: Current some day smoker tobacco type: e-cigarettes alcohol intake: current alcohol intake frequency: 3 or more drinks per day Alcohol type: hard liquor details: 1/2 gallon hard liquor, usually vodka daily. substance use type: marijuana, crack/cocaine and other details: Kratom. what type of physical activity do you participate in: none ROS ROS ED Constitutional Constitutional ED: Denies chills or fever(s) Eyes Eyes: Denies change in vision or diplopia ENT ENT ED: Denies rhinorrhea or sore throat Cardiovascular Cardiovascular: Reports chest pain; Denies palpitations Respiratory/Chest Respiratory/Chest: Denies cough or dyspnea Gastrointestinal Gastrointestinal: Reports abdominal pain and nausea; Denies diarrhea or vomiting Genitourinary Genitourinary ED: Denies dysuria or hematuria Musculoskeletal Musculoskeletal: Denies back pain or neck pain Integumentary Denies abscess or rash Neurologic Neurologic: Denies headache(s), paresthesias or weakness Psychiatric Psychiatric: Reports anxiety; Denies suicidal thoughts EXAM Physical Exam Const Vital Signs: 06/14/21 14:47 06/14/21 15:00 Temperature 97.8 F Temperature Source Temporal Pulse Rate 81 Respiratory Rate 18 Respiratory Effort Normal Non-Labored Blood Pressure 152/92 H Blood Pressure Mean 112 Pulse Ox 100 Oxygen Delivery Method Room Air Positive well nourished and well developed General Appearance ED: well developed and NAD HEENT Reports moist mucous membranes normocephalic and atraumatic Eyes PERRL and EOMs intact bilaterally Neck full ROM and supple Resp normal respiratory effort and clear to auscultation bilaterally Cardio regular rate, regular rhythm and no murmurs GI non-distended GI Narrative: Mild diffuse tenderness, is worst at the epigastrium. Neg Marin's. Auscultation: normoactive bowel sounds Palpation: soft Back/Spine no CVA tenderness General Back: other FROM Extremity normal to inspection and no calf tenderness General Extremety ED: Negative for edema, pulses abnormal or tenderness General Extremity: Negative for edema or pulses abnormal Neuro oriented x3, CN's II-XII intact bilaterally and no sensory deficits noted Sensorium / Orientation: awake and alert Motor Exam: strength 5/5 throughout Psych mental status grossly normal, thought process normal, cooperative, affect normal and speech normal Skin no rashes or lesions noted and no wounds Heart Score History: Slightly/Non-Suspicious ECG: Normal Age: </= 45 years Risk Factors: No Risk Factors Score: 0 MDM MDM MDM Narrative Medical decision making narrative: Patient was given a GI cocktail and quickly had complete resolution of his symptoms. He was reassured, his EKG and vital signs are normal, he is well-appearing, I suspect this is probably side effect from the kratom that he ingested, discussed appropriate discharge instructions and reasons to return he is comfortable with that plan. EKG Initial EKG: Attestation: I personally reviewed and interpreted this EKG as follows: Interpretation: Sinus Rhythm (74) and No Acute Injury Pattern Comments: Normal EKG Discharge Plan Triage Chief Complaint: Chest Pain ED Provider: Amado Ward Dx/Rx/DC Orders Clinical Impression: Acute epigastric pain, Side effect of drug Instructions: ED Epigastric Pain Uncertain Cause Prescriptions: No Action folic acid 1 mg Tablet 1 mg PO DAILY@0800 Qty: 30 RF: 2 thiamine HCl (vitamin B1) [Vitamin B-1] 100 mg Tablet 100 mg PO DAILYCM Qty: 30 RF: 2 nicotine 21 mg/24 hr Patch 24 Hour 21 mg transdermal DAILY Qty: 28 RF: 0 Primary Care Provider: Care Physician,No Primary Referrals: [facility] [STAFF PHYSICIAN] - As Needed Disposition Disposition: Home, Self Care
[2021-06-14] MEDS: Mag Hydrox/Al Hydrox/Simeth 30 ML UDC PO (15:25)
== END 2021-06-14 16:11 | disposition home or self-care (01) ==
PROVIDERS: Emergency Provider Emergency Medicine; Visit Provider Emergency Medicine
DX: R10.13 Epigastric pain (principal); F31.9 Bipolar disorder, unspecified; Z87.820 Personal history of traumatic brain injury; F17.290 Nicotine dependence, other tobacco product, uncomplicated; T50.995A Adverse effect of other drugs, medicaments and biological substances, initial encounter
CPT/HCPCS: 93005; 99284

== ENCOUNTER 2022-06-20 23:53 | Emergency (ER) | payer MEDICAID, SELFPAY ==
[2022-06-20 23:55] VITALS: BP 160/98; PULSE 103; RESP 16; TEMP 37.1; O2SAT 98; BMI 30.7
--- NOTE | 2022-06-21 00:14 | EDS_ITS ---
HPI History of Present Illness Chief Complaint: Dental Narrative Narrative: Patient is a 26-year-old male with past medical history of hypertension and bipolar disorder. He states he has had a broken tooth for approximately 1 year that has not bothered him. He states in the past week he has noticed increasing intermittent pain. This evening the pain has become more constant and throbbing in nature. He denies any fevers or chills difficulty breathing or swallowing but with the worsening pain he is concerned about infection and therefore comes in for evaluation. [facility] Medical History Anxiety and depression Bipolar 1 disorder Desire for detoxification History of traumatic head injury Opiate abuse, continuous Tobacco dependence Home Medications oxycodone-acetaminophen 5 mg-325 mg tablet (Percocet) 1 tab PO Q6H PRN pain 3 days #12 tabs 06/21/22 [Rx Last Taken Unknown] penicillin V potassium 500 mg tablet 500 mg PO 4X/DAY #40 tabs 06/21/22 [Rx Last Taken Unknown] Allergy/AdvReac Type Severity Reaction Status Date / Time No Known Allergies Allergy Verified 06/14/21 14:51 Family History Mother Chronic mental illness Grandmother Diabetes Chronic mental illness Sister Chronic mental illness Grandfather Myocardial infarction CVA (cerebral vascular accident) Cancer Surgical History No history of previous surgery Social History household members: none Smoking Status: Current some day smoker tobacco type: cigarettes and e- cigarettes alcohol intake: current alcohol intake frequency: 3 or more drinks per day Alcohol type: hard liquor details: 1/2 gallon hard liquor, usually vodka daily. substance use type: marijuana, crack/cocaine and other details: [place]. what type of physical activity do you participate in: none ROS ROS ED Constitutional Constitutional ED: Denies chills or fever(s) ENT ENT ED: Reports other Details: Positive dental pain ; Denies sore throat Cardiovascular Cardiovascular: Denies chest pain Respiratory/Chest Respiratory/Chest: Denies cough or dyspnea Gastrointestinal Gastrointestinal: Denies abdominal pain, diarrhea, nausea or vomiting Genitourinary Genitourinary ED: Denies dysuria Musculoskeletal Musculoskeletal: Denies myalgias or neck pain Integumentary Denies rash Neurologic Neurologic: Denies headache(s) Hematologic/Lymphatic Hematologic/Lymphatic: Denies easy bleeding or easy bruising EXAM Physical Exam Const Vital Signs: 06/20/22 23:55 Temperature 98.7 F Temperature Source Oral Pulse Rate 103 H Respiratory Rate 16 Blood Pressure 160/98 H Blood Pressure Mean 118 Pulse Ox 98 Oxygen Delivery Method Room Air Positive well nourished and well developed General Appearance ED: well developed HEENT Reports moist mucous membranes HEENT Narrative: Dental caries noted in the left lower jaw/molar region. There is mild erythema present consistent with inflammatory process without obvious dental abscess noted. No tongue or lip swelling. No oral lesion. No airway edema or compromise Eyes PERRL and EOMs intact bilaterally Neck supple Neck Narrative: No brawny edema in the submental space to suggest Maurice's angina Resp normal respiratory effort and clear to auscultation bilaterally Cardio regular rate and regular rhythm Extremity normal to inspection Neuro oriented x3 and CN's II-XII intact bilaterally Sensorium / Orientation: alert Psych mental status grossly normal Skin no rashes or lesions noted MDM MDM MDM Narrative Medical decision making narrative: Patient presented to the ER hypertensive but has a past medical history of this and otherwise afebrile. He is in no acute respiratory distress. Differential includes dental abscess versus posterior pharynx infection such as strep throat or peritonsillar abscess or Maurice's angina or ANUG. By exam there are no oral lesions no airway edema or compromise he does not have trismus change in voice or difficulty with secretions and therefore concern for strep versus peritonsillar abscess is low. Patient also has no brawny edema in the submental space going against Maurice's angina. There is mild inflammatory changes at the fractured tooth but no signs of necrosis going against ANUG. At this time patient most likely has an developing dental infection along the left lower molar based on his increasing pain and fractured tooth and mild inflammatory changes to the gingiva. We discussed a dental block for pain control but patient does not want this and therefore he will be placed on a short course of Percocet for improved pain control secondary to the infection. Antibiotics will be started as well with concern for progressing dental infection and he can follow-up with his dentist to discuss possible drainage and/or removal of the tooth as needed History & Record Review Discussion w/independent historian: Patient and Friend Discharge Plan Triage Chief Complaint: Dental ED Provider: Ameya Gayle Dx/Rx/DC Orders Clinical Impression: Pain, dental, Dental caries, Dental infection, Essential (primary) hypertension, Bipolar 1 disorder Instructions: Dental Abscess, ED Dental Pain Prescriptions: New penicillin V potassium 500 mg tablet 500 mg PO 4X/DAY Qty: 40 0RF oxycodone-acetaminophen [Percocet] 5-325 mg tablet 1 tab PO Q6H PRN (Reason: pain) 3 Days Qty: 12 0RF Primary Care Provider: Care Physician,No Primary Referrals: Care Physician,No Primary [Primary Care Provider] - Activity Restrictions/Additional Instructions: Your history and exam indicate you have a developing dental infection. Take the antibiotic to resolve this but if there is no improvement follow-up with your dentist for repeat evaluation. Disposition Disposition: Home, Self Care
[2022-06-21] MEDS: oxyCODONE 5 MG Tablet 10 MG PO (00:20)
[2022-06-21] MEDS: Penicillin Vk 250 MG Tablet 500 MG PO (00:20)
== END 2022-06-21 00:24 | disposition home or self-care (01) ==
PROVIDERS: Emergency Provider Emergency Medicine; Visit Provider Emergency Medicine
DX: K04.7 Periapical abscess without sinus (principal); F31.9 Bipolar disorder, unspecified; I10 Essential (primary) hypertension; K02.9 Dental caries, unspecified; S02.5XXA Fracture of tooth (traumatic), initial encounter for closed fracture; X58.XXXA Exposure to other specified factors, initial encounter
CPT/HCPCS: 99283

== ENCOUNTER 2022-07-04 21:30 | Emergency (ER) | payer MEDICAID, SELFPAY ==
[2022-07-04 21:30] VITALS: BP 121/90; PULSE 70; RESP 15; TEMP 36.8; O2SAT 96
[2022-07-04 22:25] VITALS: BMI 30.1
--- NOTE | 2022-07-04 23:22 | EDS_ITS ---
HPI History of Present Illness Chief Complaint: Other, Pain/Inj Informant: patient Onset/Context/Timing Onset: Days Context: Gradual Onset Timing: Continuous Quality: Sharp, aching, burning Location: Left lower first molar and left great toe Worsened by: Chewing, eating Relieved by: Nothing Narrative Narrative: Patient presents with pain and swelling to his left great toe that has been getting worse over the last 2 days. Patient also complains of pain in his left lower molar area that has been waxing and waning for the past few weeks. Patient states his pain has been constant. Patient describes the pain as sharp, aching, and burning. Patient denies any fevers or chills. Patient states his tooth pain is worse with any chewing or eating. Patient states his toe pain is constant and nothing makes it better nothing makes it worse. Patient denies any trauma or injury. Patient states he is unable to follow-up with a dentist. [facility] Medical History Anxiety and depression Bipolar 1 disorder Desire for detoxification History of traumatic head injury Opiate abuse, continuous Tobacco dependence Home Medications cephalexin 500 mg capsule 500 mg PO Q6 #40 CAPSULES 07/04/22 [Rx Last Taken Unknown] naproxen 500 mg tablet (Naprosyn) 500 mg PO BID PRN pain #20 tabs 07/04/22 [Rx Last Taken Unknown] Allergy/AdvReac Type Severity Reaction Status Date / Time No Known Allergies Allergy Verified 07/04/22 22:25 Family History Mother Chronic mental illness Grandmother Diabetes Chronic mental illness Sister Chronic mental illness Grandfather Myocardial infarction CVA (cerebral vascular accident) Cancer Surgical History No history of previous surgery Social History household members: none Smoking Status: Current some day smoker tobacco type: cigarettes and e- cigarettes alcohol intake: current alcohol intake frequency: 3 or more drinks per day Alcohol type: hard liquor details: 1/2 gallon hard liquor, usually vodka daily. substance use type: marijuana, crack/cocaine and other details: [place]. what type of physical activity do you participate in: none ROS ROS ED Constitutional Constitutional ED: Denies chills or fever(s) Eyes Eyes: Denies blurry vision or change in vision ENT ENT ED: Denies rhinorrhea or sore throat Cardiovascular Cardiovascular: Denies chest pain or palpitations Respiratory/Chest Respiratory/Chest: Denies cough or dyspnea Gastrointestinal Gastrointestinal: Denies nausea or vomiting Genitourinary Genitourinary ED: Denies dysuria or hematuria Musculoskeletal Musculoskeletal: Denies back pain or neck pain Integumentary Denies abscess or rash Neurologic Neurologic: Denies headache(s) or weakness Allergic/Immunologic Allergic/Immunologic ED: Denies mouth swelling or urticaria EXAM Physical Exam Const Vital Signs: 07/04/22 21:30 Temperature 98.3 F Temperature Source Temporal Pulse Rate 70 Respiratory Rate 15 Blood Pressure 121/90 H Blood Pressure Mean 100 Pulse Ox 96 Oxygen Delivery Method Room Air Positive well nourished and well developed General Appearance ED: well developed and NAD HEENT Reports moist mucous membranes HEENT Narrative: There is a dental caries noted over the left lower first molar. There is tenderness over this tooth. There is some mild gingival edema. There is no fluctuance. There is no evidence of any abscess. Oral mucosa is pink and moist. Oropharynx is clear. Airway is patent. Neck is supple. Trachea is midline. There is no JVD. There is no sublingual edema. There is no cervical lymphadenopathy noted. Eyes PERRL and EOMs intact bilaterally Neck supple and no JVD Extremity Extremity Narrative: There is tenderness and mild edema over the lateral nail margin of the left great toe. There is no fluctuance. There is no discharge or drainage. There is good range of motion of the IP and MP joints of the left great toe. Sensation was intact to light touch in all digits. Capillary refill was less than 2 seconds in all digits. Neuro oriented x3, CN's II-XII intact bilaterally and no sensory deficits noted Sensorium / Orientation: alert Motor Exam: strength 5/5 throughout Psych mental status grossly normal MDM MDM MDM Narrative Medical decision making narrative: Patient was advised that this is most likely infected dental carry and a paronychia of his left great toe. Patient was given a prescription for Keflex that should cover both infections. Patient was instructed to use warm soaks to his left great toe. Patient was instructed to follow-up with a dentist in 5 to 7 days. Patient was also instructed to follow-up with his primary care physician in 5 to 7 days. Patient was given a prescription for short course of Naprosyn. Patient understood and was agreeable with the plan. All questions were answered. Discharge Plan Triage Chief Complaint: Other, Pain/Inj ED Provider: Glenn Parker Dx/Rx/DC Orders Clinical Impression: Infected dental caries, Paronychia of great toe of left foot Instructions: ED Dental Cavity, ED Paronychia of the Finger or Toe Prescriptions: New cephalexin [cephalexin] 500 mg capsule 500 mg PO Q6 Qty: 40 0RF naproxen [Naprosyn] 500 mg tablet 500 mg PO BID PRN (Reason: pain) Qty: 20 0RF Primary Care Provider: Care Physician,No Primary Referrals: Eunice Mora [Non-Staff] - 5-7 Days Care Physician,No Primary [Primary Care Provider] - Disposition Disposition: Home, Self Care
[2022-07-04 23:34] VITALS: RESP 17
[2022-07-04] MEDS: Cephalexin 500 MG Capsule PO (23:38)
[2022-07-04] MEDS: Naproxen 250 MG Tablet 500 MG PO (23:38)
== END 2022-07-04 23:40 | disposition home or self-care (01) ==
PROVIDERS: Emergency Provider Emergency Medicine; Visit Provider Emergency Medicine
DX: L03.032 Cellulitis of left toe (principal); K02.9 Dental caries, unspecified; F17.210 Nicotine dependence, cigarettes, uncomplicated; F17.290 Nicotine dependence, other tobacco product, uncomplicated
CPT/HCPCS: 99283

== ENCOUNTER 2022-12-25 11:20 | Inpatient (IN) | payer MEDICAID, SELFPAY ==
[2022-12-25 11:20] VITALS: BP 141/99; PULSE 114; RESP 16; TEMP 36.9; O2SAT 99; BMI 29.5
--- NOTE | 2022-12-25 12:07 | EX.ED.DYSGE1 ---
HPI <ALEX Green - Last Filed: 12/25/22 13:25> History of Present Illness Chief Complaint: Substance Abuse Narrative Narrative: Patient is a 27-year-old male with history of bipolar, polydrug abuse disorder who presents to the emergency department for alcohol detox. Patient states he drinks 6 to 8 cans of a certain type of beer that is 12%. Patient's last drink which was whiskey was 30 minutes prior to arrival. Patient states that he is having difficulty maintaining a place to live, a lot of his friends are not talking to him anymore and he believes he needs help. Patient states his last detox attempt was 1 year ago. Patient states he does use other drugs such as nicotine as well as methamphetamine. Patient states he used methamphetamine 12 hours ago. He denies any chest pain or fevers, nausea or vomiting. Denies any injectable drugs. PFSH <ALEX Green - Last Filed: 12/25/22 13:25> [facility] Medical History Anxiety and depression Bipolar 1 disorder Desire for detoxification History of traumatic head injury Opiate abuse, continuous Tobacco dependence Home Medications NK 12/25/22 [History Last Taken Unknown] Allergy/AdvReac Type Severity Reaction Status Date / Time No Known Allergies Allergy Verified 12/25/22 11:22 Family History Mother Chronic mental illness Grandmother Diabetes Chronic mental illness Sister Chronic mental illness Grandfather Myocardial infarction CVA (cerebral vascular accident) Cancer Surgical History No history of previous surgery Social History household members: none Smoking Status: Current some day smoker tobacco type: cigarettes and e-cigarettes alcohol intake: current alcohol intake frequency: 3 or more drinks per day Alcohol type: hard liquor details: 1/2 gallon hard liquor, usually vodka daily. substance use type: marijuana, crack/cocaine and other details: Kratom. what type of physical activity do you participate in: none ROS <ALEX Green - Last Filed: 12/25/22 13:25> ROS ED ROS Narrative Constitutional: Negative for fever, chills, weight loss, weakness Eyes: Negative for vision loss, vision change, double vision ENT: Negative for any sore throat, ear pain, congestion Cardiovascular: Negative for any chest pain, tightness, palpitations Respiratory: Negative for any cough, sputum production, hemoptysis, dyspnea, dyspnea on exertion, orthopnea Gastrointestinal: Negative for any abdominal pain, nausea, vomiting, diarrhea, constipation, blood in stool, blood in vomit : Negative for any urinary frequency, dysuria, retention, blood in urine Muscle skeletal: Negative for any muscle joint pain, stiffness, myalgias, arthralgias, neck pain, back pain Neurological: Negative for any headache, syncope, numbness or tingling, dizziness Skin: Negative for any rashes, lumps, itching, abrasions, lacerations Psychiatric: Negative for any depression, suicidal ideation, homicidal ideation. Positive for anxiety, increased stress level Hematologic: Negative for any easy bruising, excessive bruising, easy bleeding Allergies: Negative for any eczema, hives, rash EXAM <ALEX Green - Last Filed: 12/25/22 13:25> Physical Exam Narrative Exam Narrative: Vital signs reviewed. Patient does appear to be withdrawn. Patient appears slightly intoxicated however is alert and orient x4. HEET: Head normocephalic atraumatic, TMs clear bilaterally. Posterior pharynx is clear, moist mucous membranes. Nares clear bilaterally. Neck: Supple with no lymphadenopathy or tenderness. No signs of meningismus, negative jolt sign. Cardiac: Tachycardic rate, no murmurs gallops or rubs, equal peripheral pulses bilaterally. Respiratory: Lungs clear to auscultation bilaterally. No chest tenderness. Abdomen: Soft, nontender, nondistended. No abdominal bruit or pulsatile masses. No hepatosplenomegaly Extremities: No peripheral edema, no signs of gross trauma or deformity. Active full range of motion of all extremities. Neuro: Cranial nerves II through XII intact, no focal neurological deficits. Skin: Clean dry and intact with no rash, purpura, petechiae, vesicles or pustules. Has multiple skin lesions from picking from methamphetamine abuse. Backs/flank: No CVA tenderness, no midline spinal tenderness, no deformity. Psych: Normal mood and affect. No SI, HI or acute psychosis. Const Vital Signs: 12/25/22 11:20 Temperature 98.4 F Temperature Source Temporal Pulse Rate 114 H Respiratory Rate 16 Blood Pressure 141/99 H Blood Pressure Mean 113 Pulse Ox 99 Oxygen Delivery Method Room Air <Dr. Glenn Parker DO - Last Filed: 12/25/22 15:42> Physical Exam Const Vital Signs: 12/25/22 11:20 Temperature 98.4 F Temperature Source Temporal Pulse Rate 114 H Respiratory Rate 16 Blood Pressure 141/99 H Blood Pressure Mean 113 Pulse Ox 99 Oxygen Delivery Method Room Air MDM <Montana KeyonnaYVETTE ohC - Last Filed: 12/25/22 13:25> [facility] Lab Data Labs: Laboratory Results - last 24 hr 12/25/22 12/25/22 12:10 12:30 WBC 9.6 RBC 4.65 Hgb 15.2 Hct 43.0 MCV 92.5 MCH 32.7 H MCHC 35.3 RDW Std Deviation 41.6 RDW Coeff of Lisa 12.3 Plt Count 241 MPV 9.7 Immature Gran % (Auto) 0.200 Neut % (Auto) 67.0 Lymph % (Auto) 25.0 Maverick % (Auto) 5.0 Eos % (Auto) 1.8 Baso % (Auto) 1.0 Absolute Neuts (auto) 6.4 Absolute Lymphs (auto) 2.39 Nucleated RBC % 0 Sodium 138 Potassium 3.4 L Chloride 109 H Carbon Dioxide 19.0 L Anion Gap 10 BUN 21 H Creatinine 1.03 Estim Creat Clear Calc 122.82 Est GFR (MDRD) Af Amer 112 Est GFR (MDRD) Non-Af 93 BUN/Creatinine Ratio 20.4 H Glucose 85 Calcium 9.2 Urine Opiates Screen NEGATIVE Urine Methadone Screen NEGATIVE Ur Barbiturates Screen NEGATIVE Ur Phencyclidine Scrn NEGATIVE Ur Amphetamines Screen POSITIVE H MDMA (Ecstasy) Screen POSITIVE H U Benzodiazepines Scrn NEGATIVE Urine Cocaine Screen NEGATIVE U Cannabinoids Screen POSITIVE H Ur Drug Screen Comment Ethyl Alcohol 7.0 Treatment and Re-Evaluation :: Patient appears generally well, patient appears nontoxic, vital signs are stable. Presenting to the emergency department for EtOH detox. Patient states he also uses methamphetamine. Patient states he does have history of withdrawal symptoms. Patient received basic laboratory values, patient also received alcohol as well as drugs of abuse. The patient will receive 1 L of normal saline secondary to visually looking dry. Differential diagnosis includes alcohol abuse, alcohol withdrawal, methamphetamine withdrawal, anxiety, depression. Patient will likely need to be admitted to the hospital for alcohol detox. Patient's CBC, chemistries were unremarkable. Patient's urine drug screen was positive for amphetamines, MDMA, as well as marijuana. Patient's alcohol level was 7.0. At this time, patient be admitted to detox, I spoke with hospitalist. Patient did sign the contract, all questions answered, stable for admission. <Dr. Glenn Parker, DO - Last Filed: 12/25/22 15:42> [facility] Narrative Medical decision making narrative: I have personally performed a face to face assessment of the patient and have reviewed the OPAL Note. I performed a substantive portion of the visit including all aspects of the following. My irby findings include: History: Patient presents requesting alcohol detox. Patient states he drinks 6-8 beers per day. Patient states the beers are 12% alcohol. Patient is been through detox before but it has been several years. Patient denies any suicidal homicidal ideations. Patient states his last drink was approximately 30 minutes prior to arrival. Patient denies any tremors or seizures. Exam: Vital signs are stable. Patient is afebrile. Patient is in no acute distress. Oral mucosa is pink and moist. Neck is supple. Trachea is midline. There is no JVD. Heart was regular rate and rhythm. Lungs are clear and equal bilaterally. Abdomen is soft. Bowel sounds are normal. There is no tenderness. Cranial nerves II through XII are intact. There are no focal motor or sensory deficits noted. Medical Decision Making: Differential diagnosis includes alcohol withdrawal, alcohol intoxication, and anxiety. Medical screening labs will be obtained. CBC will be obtained to assess for leukocytosis and anemia. Basic metabolic profile will be obtained to assess for electrolyte abnormality and renal function. Serum alcohol level will be obtained to assess for alcohol intoxication. Urine tox screen will be obtained to assess for substance abuse. CBC was reviewed and was within normal limits. Basic metabolic profile was reviewed. CO2 was slightly low at 19. The remainder was essentially within normal limits. Urine tox screen was positive for cannabinoids, amphetamines, and MDMA. Serum alcohol level was reviewed and was 7. Case was discussed with the hospitalist. He will admit the patient to his service. Patient understood and was agreeable with the plan. All questions were answered. Lab Data Labs: Laboratory Results - last 24 hr 12/25/22 12/25/22 12:10 12:30 WBC 9.6 RBC 4.65 Hgb 15.2 Hct 43.0 MCV 92.5 MCH 32.7 H MCHC 35.3 RDW Std Deviation 41.6 RDW Coeff of Lisa 12.3 Plt Count 241 MPV 9.7 Immature Gran % (Auto) 0.200 Neut % (Auto) 67.0 Lymph % (Auto) 25.0 Maverick % (Auto) 5.0 Eos % (Auto) 1.8 Baso % (Auto) 1.0 Absolute Neuts (auto) 6.4 Absolute Lymphs (auto) 2.39 Nucleated RBC % 0 Sodium 138 Potassium 3.4 L Chloride 109 H Carbon Dioxide 19.0 L Anion Gap 10 BUN 21 H Creatinine 1.03 Estim Creat Clear Calc 122.82 Est GFR (MDRD) Af Amer 112 Est GFR (MDRD) Non-Af 93 BUN/Creatinine Ratio 20.4 H Glucose 85 Calcium 9.2 Urine Opiates Screen NEGATIVE Urine Methadone Screen NEGATIVE Ur Barbiturates Screen NEGATIVE Ur Phencyclidine Scrn NEGATIVE Ur Amphetamines Screen POSITIVE H MDMA (Ecstasy) Screen POSITIVE H U Benzodiazepines Scrn NEGATIVE Urine Cocaine Screen NEGATIVE U Cannabinoids Screen POSITIVE H Ur Drug Screen Comment Ethyl Alcohol 7.0 Discharge Plan Dx/Rx/DC Orders Clinical Impression: Bipolar 1 disorder, Polysubstance abuse Disposition Disposition: Acute Care Hospital [facility] Discharge Date/Time: 12/25/22 14:47
[2022-12-25 12:23] LABS: Absolute Lymphocyte Count 2.39 X10^3/uL (0.83-4.51); Absolute Neutrophil Count 6.4 X10^3/uL (2.0-7.7); Eosinophil# 0.17 X10^3/uL; Eosinophils% 1.8 % (0-5); Hemoglobin 15.2 g/dL (13.0-16.5); Lymphocyte # 2.39 X10^3/ul (0.83-4.51); Mean Corp Hgb Conc 35.3 g/dL (32-36); Mean Corpuscular Hgb 32.7 pg (27.0-32.0); Mean Corpuscular Volume 92.5 fL (80-94); Mean Platelet Vol. 9.7 fl (6.2-12.0); Monocyte# 0.48 X10^3/uL; NRBC Flagged by Analyzer 0 % (0-5); Platelet Count 241 K/mm3 (150-450); RBC Distribution Width CV 12.3 % (11.6-14.6); RBC Distribution Width SD 41.6 fl (35.1-43.9); Red Blood Count 4.65 M/mm3 (4.6-6.2); White Blood Count 9.6 K/mm3 (4.4-11.0)
[2022-12-25 12:37] LABS: Anion Gap 10 (5-15); BUN 21 mg/dL (7-18); BUN/Creat Ratio 20.4 RATIO (10-20); Calcium,Total 9.2 mg/dL (8.5-10.1); Chloride 109 mmol/L (98-107); Creatinine, Serum 1.03 mg/dL (0.70-1.30); EST Glomerular Filtration Rate 93 mL/min (>60); Est Glom Filt Rate - Afr Amer 112 mL/min (>60); Estimated Creatinine Clearance 122.82 ml/min; Glucose 85 mg/dL (74-106); Potassium 3.4 mmol/L (3.5-5.1); Sodium Level 138 mmol/L (136-145)
[2022-12-25] MEDS: 0.9% Normal Saline (1000mL) 1,000 ML 1000 ML IV (12:37)
[2022-12-25 13:02] LABS: Amphetamine Urine VISTA POSITIVE (<1000 ng/mL); Barbiturate Urine VISTA NEGATIVE (< 200 ng/mL); Benzodiazepine Urine VISTA NEGATIVE (< 200 ng/mL); Cocaine Urine VISTA NEGATIVE (< 300 ng/mL); Ecstacy Urine VISTA POSITIVE (< 500 ng/mL); Methadone Urine VISTA NEGATIVE (< 300 ng/mL); PCP Urine VISTA NEGATIVE (< 25 ng/mL); THC Urine VISTA POSITIVE (< 50 ng/mL); Vista UDS pH Range 5
[2022-12-25 15:01] VITALS: BP 124/80; PULSE 88; RESP 18; TEMP 36.7; O2SAT 99; BMI 29.5
--- NOTE | 2022-12-25 15:04 | HP.PCM.HOS_ITS ---
HPI - General General Date of Admission: 12/25/22 Date of Service: 12/25/22 Chief Complaint: Acute alcohol withdrawal HPI Narrative ARIAS VASQUEZ, is a 27 M who presents to the emergency room at [facility] desiring services for alcohol detox. Patient's last drink was today, he states he drinks 12% alcohol drinks-as many as 6 to 8/day, he states that they are at least 24 ounces. Patient also smokes and snorts methamphetamine, he denies any IV drug usage, he states he has been through detox approximately a year ago and was clean for 4 months afterwards but then relapsed. Patient has a past history of bipolar disorder, he is not sure if he has any other medical problems. Patient states he takes no medications. Jaycob caceres states that he has been feeling uneasy and nervous today. Labs obtained in the emergency room were remarkable for an elevated BUN at 21 and a potassium of 3.4, patient's tox screen was positive for amphetamines, MDMA, and cannabinoids. Patient's ethyl alcohol level was 7. Patient will be admitted to [place] [id number], orders were entered using the alcohol detox order set. [facility] Medical History Anxiety and depression Bipolar 1 disorder Desire for detoxification History of traumatic head injury Opiate abuse, continuous Tobacco dependence Home Medications NK 12/25/22 [History Last Taken Unknown] Allergy/AdvReac Type Severity Reaction Status Date / Time No Known Allergies Allergy Verified 12/25/22 11:22 Family History Mother Chronic mental illness Grandmother Diabetes Chronic mental illness Sister Chronic mental illness Grandfather Myocardial infarction CVA (cerebral vascular accident) Cancer Surgical History No history of previous surgery Social History household members: none Smoking Status: Current some day smoker tobacco type: cigarettes and e- cigarettes alcohol intake: current alcohol intake frequency: 3 or more drinks per day Alcohol type: hard liquor details: 1/2 gallon hard liquor, usually vodka daily. substance use type: marijuana, crack/cocaine and other details: Kratom. what type of physical activity do you participate in: none ROS Constitutional Constitutional: Denies anorexia, change in weight, chills, fatigue, fever(s), night sweats or weakness Eyes Eyes: Denies blurry vision, change in vision, discharge from eye(s) or eye pain Cardiovascular Cardiovascular: Denies chest pain, claudication, dyspnea on exertion, edema, lightheadedness or palpitations Respiratory/Chest Respiratory/Chest: Denies cough, hemoptysis, shortness of breath at rest or shortness of breath with exertion Gastrointestinal Gastrointestinal: Denies abdominal pain, constipation, diarrhea, hematemesis, hematochezia, melena, nausea or vomiting Genitourinary Genitourinary: Denies dysuria, hematuria, urinary frequency, urinary hesitancy, urinary incontinence or urinary urgency Musculoskeletal Musculoskeletal: Denies back pain, joint pain, joint stiffness, joint swelling, myalgias or neck pain Neurologic Neurologic: Denies abnormal gait, abnormal speech, dizziness, focal weakness, he adache(s), loss of vision, numbness, other visual disturbances, paresthesias, syncope or tingling Psychiatric Psychiatric: Reports anxiety and irritability; Denies cognitive impairment, depression, mood swings or suicidal ideation Endocrine Endocrinology: Denies change in body appearance, cold intolerance, excessive sweating, heat intolerance, polydipsia or polyuria Hematologic/Lymphatic Hematologic/Lymphatic: Denies none, anemia, easy bleeding, easy bruising or lymphadenopathy Allergic/Immunologic Allergic/Immunologic: Denies rhinitis, urticaria, eczemia or asthma Vital Signs Vital Signs Vital Signs: 12/25/22 11:20 Temperature 98.4 F Temperature Source Temporal Pulse Rate 114 H Respiratory Rate 16 Blood Pressure 141/99 H Blood Pressure Mean 113 Pulse Ox 99 Oxygen Delivery Method Room Air Weight Weight: 101.406 kg Body Mass Index (BMI) 29.5 Physical Exam Const alert, oriented x3, no apparent distress and average body habitus Constitutional Narrative: Patient has poor general hygiene General Appearance: cooperative, well kempt and well developed Orientation / Consciousness: awake, oriented to person, oriented to place and oriented to time HEENT normocephalic, head/scalp atraumatic, hearing grossly normal bilaterally and moist oral mucous membranes Eyes PERRL, EOMs intact bilaterally and conjunctivae normal Neck supple, no JVD, thyroid normal and no carotid bruits General: trachea midline Resp normal respiratory effort, no retractions, no use of accessory muscles and clear to auscultation bilaterally Auscultation: Negative for rales, rhonchi or wheezes Cardio regular rate, regular rhythm, S1 normal heart sound, S2 normal heart sound, no murmurs, no rub and no gallops GI normal to inspection, nondistended, normoactive bowel sounds, soft to palpation, non-tender and non-distended Extremity no clubbing, cyanosis or edema Skin no rashes or lesions noted General Skin Exam: no breakdown Neuro oriented x3, CN's II-XII intact bilaterally, moves all extremities, no focal motor deficits and no sensory deficits noted Sensorium / Orientation: awake, alert, oriented to person, oriented to place and oriented to time Speech: speech normal Psych Psych Narrative: Patient appears mildly anxious during my exam Results Lab / Micro Data 12/25/22 12:10 12/25/22 12:10 Labs: Laboratory Results - last 24 hr 12/25/22 12:10: WBC 9.6, RBC 4.65, Hgb 15.2, Hct 43.0, MCV 92.5, MCH 32.7 H, MCHC 35.3, RDW Std Deviation 41.6, RDW Coeff of Lisa 12.3, Plt Count 241, MPV 9.7, Immature Gran % (Auto) 0.200, Neut % (Auto) 67.0, Lymph % (Auto) 25.0, [place] % (Auto) 5.0, Eos % (Auto) 1.8, Baso % (Auto) 1.0, Absolute Neuts (auto) 6.4, Absolute Lymphs (auto) 2.39, Nucleated RBC % 0, Sodium 138, Potassium 3.4 L, Chloride 109 H, Carbon Dioxide 19.0 L, Anion Gap 10, BUN 21 H, Creatinine 1.03, Estim Creat Clear Calc 122.82, Est GFR (MDRD) Af Amer 112, Est GFR (MDRD) Non-Af 93, BUN/Creatinine Ratio 20.4 H, Glucose 85, Calcium 9.2, Ethyl Alcohol 7.0 12/25/22 12:30: Urine Opiates Screen NEGATIVE, Urine Methadone Screen NEGATIVE, Ur Barbiturates Screen NEGATIVE, Ur Phencyclidine Scrn NEGATIVE, Ur Amphetamines Screen POSITIVE H, MDMA (Ecstasy) Screen POSITIVE H, U Benzodiazepines Scrn NEGATIVE, Urine Cocaine Screen NEGATIVE, U Cannabinoids Screen POSITIVE H, Ur Drug Screen Comment Assessment & Plan Assessment/Plan (1) Alcohol withdrawal: PLAN: Plan 1. Acute alcohol withdrawal-patient will be admitted to [facility], he will be seen by addiction medical social worker, he will be monitored for withdrawal signs and symptoms, orders were entered using the alcohol detox order set. #2 bipolar disorder-patient states he is not taking any medications, he is vague about his past medical history or whether he was on any medicines at all. Complicates care, medical course, recovery, and prognosis #3 polysubstance abuse-complicates care, medical course, recovery, and prognosis #4 essential hypertension by history-patient is not currently on any medications, his blood pressure will be monitored, he may need to be placed on medication during this hospitalization. Total clinical time spent by myself addressing the patient's medical issues, reviewing all of his data, and collaborating with patient's care team: 55 minutes Charges/Coding Visit Charges Inpatient E&M: 51328 Init Hosp L2
--- NOTE | 2022-12-25 15:08 | NURSING ---
pt states he smokes 1ppd of cigarettes, marijuana joint once a day ( last use approx 3 days ago), used meth via snorting approx 12 hrs ago, using 1/2 gm a day, last drink was 1 hr ago drinking 8 mxd which pt states is equivalent to 1/2 gallon of cheap vodka, last use of heroin/fentanyl was approx 1 month ago and that was via smoking.
[2022-12-25] MEDS: Phenobarbital 32.4 MG Tablet PO ×3 (15:20→22:16)
[2022-12-25] MEDS: Dicyclomine 10 MG Capsule 20 MG PO (15:20)
[2022-12-25] MEDS: Acetaminophen 500 MG Tablet PO (15:20)
[2022-12-25] MEDS: LORazepam 1 MG Tablet 2 MG PO (15:20)
[2022-12-25] MEDS: Ondansetron 8 MG Tablet PO (15:20)
[2022-12-25] MEDS: Gabapentin 300 MG Capsule PO (15:21)
[2022-12-25 18:39] VITALS: BP 111/67; PULSE 78; RESP 16; TEMP 36.7; O2SAT 96
[2022-12-25] MEDS: hydrOXYzine PAM 25 MG Capsule 50 MG PO ×2 (18:41→22:16)
[2022-12-25 22:12] VITALS: BP 103/67; PULSE 73; RESP 14; TEMP 36.6; O2SAT 98
[2022-12-25] MEDS: traZODone 100 MG Tablet PO (22:16)
[2022-12-26 04:13] VITALS: BP 98/53; PULSE 75; RESP 12; TEMP 36.6; O2SAT 98
[2022-12-26] MEDS: Phenobarbital 32.4 MG Tablet PO ×6 (04:19→23:14)
[2022-12-26] MEDS: Thiamine Hydrochloride 100 MG Tablet PO (06:47)
[2022-12-26] MEDS: Folic Acid 1 MG Tablet PO (06:47)
[2022-12-26 08:08] VITALS: BP 103/77; PULSE 89; RESP 18; TEMP 36.6; O2SAT 99
--- NOTE | 2022-12-26 08:12 | PN.HOSP_ITS ---
Reason for Visit Reason for Visit: Diagnoses Alcohol dependence with withdrawal, unspecified (12/25/22) Subjective Subjective Feels ok. Objective Data Objective Data Vital Signs: Vital Signs Temp Pulse Resp BP Pulse Ox O2 Del Method 36.6 C 75 12 98/53 L 98 Room Air 12/26/22 04:13 12/26/22 04:13 12/26/22 04:13 12/26/22 04:13 12/26/22 04:13 12/26/22 04:13 Oxygen Delivery Method Room Air Weight: 101.406 kg Body Mass Index (BMI) 29.5 Intake & Output: Intake and Output for Last 24 Hours 12/24/22 12/25/22 12/26/22 23:59 23:59 23:59 Intake Total 1000 / 1000 Balance 1000 / 1000 Lab / Micro Data 12/25/22 12:10 12/25/22 12:10 Labs: Laboratory Results - last 24 hr 12/25/22 12:10: WBC 9.6, RBC 4.65, Hgb 15.2, Hct 43.0, MCV 92.5, MCH 32.7 H, MCHC 35.3, RDW Std Deviation 41.6, RDW Coeff of Lisa 12.3, Plt Count 241, MPV 9.7, Immature Gran % (Auto) 0.200, Neut % (Auto) 67.0, Lymph % (Auto) 25.0, Sutton % (Auto) 5.0, Eos % (Auto) 1.8, Baso % (Auto) 1.0, Absolute Neuts (auto) 6.4, Absolute Lymphs (auto) 2.39, Nucleated RBC % 0, Sodium 138, Potassium 3.4 L, Chloride 109 H, Carbon Dioxide 19.0 L, Anion Gap 10, BUN 21 H, Creatinine 1.03, Estim Creat Clear Calc 122.82, Est GFR (MDRD) Af Amer 112, Est GFR (MDRD) Non-Af 93, BUN/Creatinine Ratio 20.4 H, Glucose 85, Calcium 9.2, Ethyl Alcohol 7.0 12/25/22 12:30: Urine Opiates Screen NEGATIVE, Urine Methadone Screen NEGATIVE, Ur Barbiturates Screen NEGATIVE, Ur Phencyclidine Scrn NEGATIVE, Ur Amphetamines Screen POSITIVE H, MDMA (Ecstasy) Screen POSITIVE H, U Benzodiazepines Scrn NEGATIVE, Urine Cocaine Screen NEGATIVE, U Cannabinoids Screen POSITIVE H, Ur Drug Screen Comment Micro: Microbiology 12/25/22 Unknown Nasal Secretion SARS-CoV-2 Antigen (Rapid) - Final Physical Exam Const alert Constitutional Narrative: non toxic. one-word answers. HEENT head/scalp atraumatic Neuro Sensorium / Orientation: awake Assessment & Plan Assessment/Plan (1) Alcohol withdrawal: PLAN: Continue phenobarbital taper Continue thiamin and folate Discussed with Dafne, plan for residential program on 12/28, if pt is medically ready. PLAN: Plan Chronic conditoins: * bipolar disorder-patient states he is not taking any medications, he is vague about his past medical history or whether he was on any medicines at all. Complicates care, medical course, recovery, and prognosis * polysubstance abuse-complicates care, medical course, recovery, and prognosis * essential hypertension by history-patient is not currently on any medications, his blood pressure will be monitored, he may need to be placed on medication during this hospitalization. Charges/Coding Visit Charges Inpatient E&M: 62451 Subs Hosp L1
--- NOTE | 2022-12-26 10:40 | ADDICTION ---
Addendum entered by Serenity Bridges 12/28/22 11:31: Pt was declined from [facility]. Patient has agreed to be picked up by [facility] in [place]. They will pick him up Sunday around 11am-remigio. They are traveling 3.5 hours so definitive time may be difficult. They are also picking up a patient in ICU. Original Note: This gag writer met with PT to conduct ASAM, MSE, AUDIT, DUDIT assessments and to plan for d/c. PT A+Ox4 and participated actively. All assessments completed and placed in PT's chart. PT plans to f/u with [facility] for follow-up in patient treatment services on . [facility] will transport to treatment.
[2022-12-26 11:33] VITALS: BP 95/60; PULSE 96; RESP 17; TEMP 37; O2SAT 100
[2022-12-26 11:35] VITALS: BP 95/60; PULSE 96; RESP 17; TEMP 37; O2SAT 100
[2022-12-26 15:21] VITALS: BP 126/67; PULSE 109; RESP 18; TEMP 36.9; O2SAT 99
--- NOTE | 2022-12-26 15:31 | NURSING ---
documentation by Pam FRANCISCO reviewed.
--- NOTE | 2022-12-26 15:36 | CHAPLAIN ---
Type of Pastoral Visit ___ Initial Visit ___ Follow-up Visit ___ On-call Visit ___ General Patient Visit ___ Spiritual Assessment ___ Family Conference ___ Bereavement ___ Rapid Response ___ Code Blue ___ Other (describe below) Pastoral Care Referral From ___ Patient ___ Family ___ Nurse ___ Physician ___ Supervisor Packing Room ___ Phlebotomist Prn ___ Other (describe below) Sacrament/Intervention ___ Active listening ___ Anointing ___ Gnosticist ___ Bereavement ___ Communion ___ Elda exploration ___ ___ Life review ___ Prayer ___ Reconciliation ___ Sacrament of Sick ___ Supportive presence ___ Wedding ___ Other (describe below) Pastoral Comments patient is soundly sleeping and a calling card is left for him
[2022-12-26] MEDS: Gabapentin 300 MG Capsule PO (17:57)
[2022-12-26] MEDS: Acetaminophen 500 MG Tablet PO (18:00)
--- NOTE | 2022-12-26 19:15 | NURSING ---
documentation of furniture servicer Pam sanchez
[2022-12-26 23:15] VITALS: BP 100/59; PULSE 86; RESP 16; TEMP 36.4; O2SAT 97
[2022-12-27] MEDS: Phenobarbital 32.4 MG Tablet PO ×6 (03:25→22:41)
[2022-12-27 03:27] VITALS: BP 106/73; PULSE 86; RESP 16; TEMP 36.3; O2SAT 99
[2022-12-27] MEDS: hydrOXYzine PAM 25 MG Capsule 50 MG PO (03:33)
[2022-12-27 06:26] VITALS: BP 117/76; PULSE 83; RESP 16; TEMP 36.4; O2SAT 98
[2022-12-27] MEDS: Folic Acid 1 MG Tablet PO (11:35)
[2022-12-27] MEDS: Thiamine Hydrochloride 100 MG Tablet PO (11:35)
[2022-12-27 11:38] VITALS: BP 125/72; PULSE 94; RESP 18; TEMP 36.6; O2SAT 99
[2022-12-27] MEDS: Gabapentin 300 MG Capsule PO (15:51)
[2022-12-27] MEDS: Ibuprofen 600 MG Tablet PO (15:51)
[2022-12-27 15:55] VITALS: BP 138/100; PULSE 99; RESP 18; TEMP 36.4; O2SAT 99
--- NOTE | 2022-12-27 16:12 | PN.HOSP_ITS ---
Reason for Visit Reason for Visit: Diagnoses Alcohol dependence with withdrawal, unspecified (12/25/22) Objective Data Objective Data Vital Signs: Vital Signs Temp Pulse Resp BP Pulse Ox O2 Del Method 97.5 F L 99 18 138/100 H 99 Room Air 12/27/22 15:55 12/27/22 15:55 12/27/22 15:55 12/27/22 15:55 12/27/22 15:55 12/27/22 15:55 Oxygen Delivery Method Room Air Weight: 223 lb 9 oz Body Mass Index (BMI) 29.5 Intake & Output: Intake and Output for Last 24 Hours 12/25/22 12/26/22 12/27/22 23:59 23:59 23:59 Intake Total 1000 / 1000 Balance 1000 / 1000 Lab / Micro Data 12/25/22 12:10 12/25/22 12:10 Micro: Microbiology 12/25/22 Unknown Nasal Secretion SARS-CoV-2 Antigen (Rapid) - Final Physical Exam Narrative The patient still very drowsy and lethargic. He said he is having scary dreams last night or nightmares. General: Alert, Oriented x3, Cooperative HEENT: Atraumatic, PERRLA, EOMI, Normocephalic Oral: No Gingival or Mucosal Lesions/ Ulcerations Neck: Supple, No JVD, Negative Carotid Bruits Lungs: Air entry diminished in bilateral lung bases. No crepitation/rhonchi Cardiovascular: Regular rate, Regular Rhythm, Normal S1, Normal S2, No murmurs Abdomen: Bowel Sounds Present, Soft, Non Tender, Non-Distended : No renal angle tenderness. No suprapubic tenderness. Extremities: No edema, Capillary Refill Less than 3 Seconds Skin: No rashes, No breakdown Musculoskeletal: No Tenderness to Palpation of Joints or Extremities Neurological: Cranial nerves II-XII grossly intact, DTR 2+/4. No acute focal neurological deficit. Psych/Mental Status: Flat affect Assessment & Plan Assessment/Plan (1) Alcohol withdrawal: QUALIFIERS: Complication of substance-induced condition: with delirium Qualified Code(s): F10.931 - Alcohol use, unspecified with withdrawal delirium PLAN: Patient is being admitted to MedSur floor. Patient on phenobarbital based order set along with other adjunctive medications gabapentin, Bentyl, Vistaril, clonidine, Klonopin as needed for alcohol withdrawal symptom control. CIWA monitor. application manager consulted. Continue thiamin and folate Discussed with Dafne, plan for residential program on 12/28, if pt is medically ready. PLAN: Plan Chronic conditoins: * bipolar disorder-patient states he is not taking any medications, he is vague about his past medical history or whether he was on any medicines at all. Complicates care, medical course, recovery, and prognosis * polysubstance abuse-complicates care, medical course, recovery, and prognosis * essential hypertension by history-patient is not currently on any medications, his blood pressure will be monitored, he may need to be placed on medication during this hospitalization. Charges/Coding Visit Charges Inpatient E&M: 17479 Subs Hosp L2
[2022-12-27 22:37] VITALS: BP 104/68; PULSE 73; RESP 16; TEMP 36.2; O2SAT 97
[2022-12-28] MEDS: Phenobarbital 32.4 MG Tablet PO ×4 (04:51→23:39)
[2022-12-28 04:53] VITALS: BP 85/53; PULSE 72; RESP 16; TEMP 36.6; O2SAT 97
[2022-12-28 06:16] VITALS: BP 94/63
[2022-12-28 09:18] VITALS: BP 131/89; PULSE 88; RESP 16; TEMP 36.8; O2SAT 97
[2022-12-28] MEDS: Folic Acid 1 MG Tablet PO (09:24)
[2022-12-28] MEDS: Thiamine Hydrochloride 100 MG Tablet PO (09:24)
[2022-12-28] MEDS: hydrOXYzine PAM 25 MG Capsule 50 MG PO (09:24)
[2022-12-28 14:24] VITALS: BP 103/61; PULSE 74; RESP 16; TEMP 37; O2SAT 96
--- NOTE | 2022-12-28 14:34 | CHAPLAIN ---
Type of Pastoral Visit _x__ Initial Visit ___ Follow-up Visit ___ On-call Visit ___ General Patient Visit ___ Spiritual Assessment ___ Family Conference ___ Bereavement ___ Rapid Response ___ Code Blue ___ Other (describe below) Pastoral Care Referral From _x__ Patient ___ Family ___ Nurse ___ Physician ___ Engraver Tire Mold ___ Custody Assistant ___ Other (describe below) Sacrament/Intervention ___ Active listening ___ Anointing ___ Worship ___ Bereavement ___ Communion ___ Elda exploration ___ ___ Life review ___ Prayer ___ Reconciliation ___ Sacrament of Sick _x__ Supportive presence ___ Wedding ___ Other (describe below) Pastoral Comments patient has been sleeping for three days as this advanced practice provider finds him that way each day; after RN entered room today, this advanced practice provider followed her and offered support; pt does not open his eyes but acknowledges request and states that I have to get these other things figured out first; pt reports feeling so tired and just wanting to sleep; pt is given opportunity for this advanced practice provider to come back another day next week if pt is still here
--- NOTE | 2022-12-28 16:34 | PN.HOSP_ITS ---
Reason for Visit Reason for Visit: Diagnoses Alcohol dependence with withdrawal, unspecified (12/25/22) Alcohol use, unspecified with withdrawal delirium (12/25/22) Objective Data Objective Data Vital Signs: Vital Signs Temp Pulse Resp BP Pulse Ox O2 Del Method 98.6 F 74 16 103/61 96 Room Air 12/28/22 14:24 12/28/22 14:24 12/28/22 14:24 12/28/22 14:24 12/28/22 14:24 12/28/22 14:24 Oxygen Delivery Method Room Air Weight: 223 lb 9 oz Body Mass Index (BMI) 29.5 Lab / Micro Data 12/25/22 12:10 12/25/22 12:10 Micro: Microbiology 12/25/22 Unknown Nasal Secretion SARS-CoV-2 Antigen (Rapid) - Final Physical Exam Narrative Patient is more awake and alert. Initially he refused for going to inpatient rehab but later on he change his mind and agreed. Denies hallucinations or delusion. Physical exam General: Alert, Oriented x3, Cooperative HEENT: Atraumatic, PERRLA, EOMI, Normocephalic Oral: No Gingival or Mucosal Lesions/ Ulcerations Neck: Supple, No JVD, Negative Carotid Bruits Lungs: Air entry diminished in bilateral lung bases. No crepitation/rhonchi Cardiovascular: Regular rate, Regular Rhythm, Normal S1, Normal S2, No murmurs Abdomen: Bowel Sounds Present, Soft, Non Tender, Non-Distended : No renal angle tenderness. No suprapubic tenderness. Extremities: No edema, Capillary Refill Less than 3 Seconds Skin: No rashes, No breakdown Musculoskeletal: No Tenderness to Palpation of Joints or Extremities Neurological: Cranial nerves II-XII grossly intact, DTR 2+/4. No acute focal neurological deficit. Psych/Mental Status: Flat affect Assessment & Plan Assessment/Plan (1) Alcohol withdrawal: QUALIFIERS: Complication of substance-induced condition: with delirium Qualified Code(s): F10.931 - Alcohol use, unspecified with withdrawal delirium PLAN: Patient is being admitted to MedSurg floor. Patient on phenobarbital based order set along with other adjunctive medications gabapentin, Bentyl, Vistaril, clonidine, Klonopin as needed for alcohol withdrawal symptom control. CIWA monitor. quality engineering manager consulted. Continue thiamin and folate Discussed with Dafne, plan for residential program on 12/28, if pt is medically ready. 12/28: Discussed with Donovan. He agreed for going to inpatient rehab for alcohol dependence. PLAN: Plan Chronic conditoins: * bipolar disorder-patient states he is not taking any medications, he is vague about his past medical history or whether he was on any medicines at all. Complicates care, medical course, recovery, and prognosis * polysubstance abuse-complicates care, medical course, recovery, and prognosis * essential hypertension by history-patient is not currently on any medications, his blood pressure will be monitored, he may need to be placed on medication during this hospitalization. Charges/Coding Visit Charges Inpatient E&M: 18149 Subs Hosp L2
[2022-12-28 23:36] VITALS: BP 101/62; PULSE 84; RESP 18; TEMP 36.5; O2SAT 95
[2022-12-29 06:09] VITALS: BP 99/64; PULSE 68; RESP 18; TEMP 36.8; O2SAT 97
[2022-12-29] MEDS: Phenobarbital 32.4 MG Tablet PO (06:13)
[2022-12-29 09:08] VITALS: BP 99/58; PULSE 94; RESP 18; TEMP 36.8; O2SAT 100
[2022-12-29] MEDS: hydrOXYzine PAM 25 MG Capsule 50 MG PO (09:13)
[2022-12-29] MEDS: Thiamine Hydrochloride 100 MG Tablet PO (09:13)
[2022-12-29] MEDS: Folic Acid 1 MG Tablet PO (09:13)
--- NOTE | 2022-12-29 10:06 | DCINST_ITS ---
Discharge Instructions Diet Discharge Diet: No restrictions Activity Discharge Activity: Return to Normal Activity Weight Bearing Status: Weight bearing as tolerated Dressing / Incision Call your doctor if you observe: Fever of 101 or Higher, Coldness, Increased Pain, Numbness or Tingling, Change in Color, Inability to urinate, Inability to have a bowel movement, Shortness of breath, Dizziness, Fainting spells, Swelling in the ankles, Chest pain, Prolonged hiccupping, Increased palpitations (irregular heartbeat) and Calf discomfort Follow Up Care When: IN 2 WEEKS Test Results: Test results from this visit will be discussed in further detail at your follow- up appointment, if applicable. Discharge Plan Admission Admit Date/Time: 12/25/22 14:00 Primary Reason for Your Visit: Acute alcohol withdrawal syndrome Attending Provider: Francis Barnhart Primary Care Provider: Care Physician,Gianna Primary Consulting Providers: Mik Silva; Glenn Dailey Discharge Orders/Prescriptions Prescriptions: New thiamine HCl (vitamin B1) [Vitamin B-1] 100 mg Tablet 100 mg PO DAILYCM Qty: 30 2RF nicotine 21 mg/24 hr Patch 24 Hour 21 mg transdermal DAILY Qty: 28 0RF folic acid 1 mg Tablet 1 mg PO DAILY@0800 Qty: 30 2RF No Action NK Referrals / Follow Up: Care Physician,No Primary [Primary Care Provider] - Rory Dao DO [Med Staff - Active Staff] - Within 1 Month (Alcoholic hepatitis) Disposition Disposition (needs filled in before D/C Order can be placed): DC/Tx to Another Type of HCF
--- NOTE | 2022-12-29 10:08 | PCM.DC.SUM ---
Providers Date of Admission: 12/25/22 Date of Discharge: 12/29/22 Primary Care Physician: No Primary Care Phys Reason For Visit: ALCOHOL WITHDRAWAL Diagnosis Discharge Diagnosis (1) Alcohol withdrawal: Status: Chronic Code(s): F10.239 - Alcohol dependence with withdrawal, unspecified Qualifiers: Complication of substance-induced condition: with delirium Qualified Code(s): F10.931 - Alcohol use, unspecified with withdrawal delirium [facility]: [facility] Patient on phenobarbital based order set along with other adjunctive medications gabapentin, Bentyl, Vistaril, clonidine, Klonopin as needed for alcohol withdrawal symptom control. CIWA monitor. manager of tires sales consulted. Continue thiamin and folate Discussed with Dafne, plan for residential program on 12/28, if pt is medically ready. 12/28: Discussed with Donovan. He agreed for going to inpatient rehab for alcohol dependence. 12/29: Patient is still lying on the bed. He states he does not have any complaint but he looked lethargic. Denies hallucination. Patient is going to residential alcohol rehab program. . discussed with the telephonic case manager, Donovan. 2. Chronic alcoholic hepatitis: Patient ALT has been high to 117 in January 2019, Documented. AST was 178 in January 2019. Currently 40. Advised follow-up in GI hepatology clinic in 4 months for alcoholic hepatitis. Quit alcohol advised. Plan Chronic conditoins: bipolar disorder-patient states he is not taking any medications, he is vague about his past medical history or whether he was on any medicines at all. Complicates care, medical course, recovery, and prognosis polysubstance abuse-complicates care, medical course, recovery, and prognosis essential hypertension by history-patient is not currently on any medications, his blood pressure will be monitored, he may need to be placed on medication during this hospitalization. Medications at Discharge Home Medications NK 12/25/22 folic acid 1 mg tablet 1 mg PO DAILY@0800 #30 tabs 12/29/22 nicotine 21 mg/24 hr daily transdermal patch 21 mg transdermal DAILY #28 ea 12/29/22 thiamine HCl (vitamin B1) 100 mg tablet (Vitamin B-1) 100 mg PO DAILYCM #30 tabs 12/29/22 Physical Exam Narrative Patient is more awake and alert. Denies hallucinations or delusion. Patient is getting transferred to residential alcohol rehab program. Physical exam General: Awake, lethargic, Oriented x3, Cooperative HEENT: Atraumatic, PERRLA, EOMI, Normocephalic Oral: No Gingival or Mucosal Lesions/ Ulcerations Neck: Supple, No JVD, Negative Carotid Bruits Lungs: Air entry diminished in bilateral lung bases. No crepitation/rhonchi Cardiovascular: Regular rate, Regular Rhythm, Normal S1, Normal S2, No murmurs Abdomen: Bowel Sounds Present, Soft, Non Tender, Non-Distended : No renal angle tenderness. No suprapubic tenderness. Extremities: No edema, Capillary Refill Less than 3 Seconds Skin: No rashes, No breakdown Musculoskeletal: No Tenderness to Palpation of Joints or Extremities Neurological: Cranial nerves II-XII grossly intact, DTR 2+/4. No acute focal neurological deficit. Psych/Mental Status: Flat affect. No hallucination. Weight / BMI Weight Weight: 223 lb 9 oz Body Mass Index (BMI) 29.5 ABG / Lab / Microbiology Data 12/25/22 12:10 12/25/22 12:10 Microbiology: Microbiology 12/25/22 Unknown Nasal Secretion SARS-CoV-2 Antigen (Rapid) - Final D/C Instructions Discharge Diet: No restrictions Weight Bearing Status: Weight bearing as tolerated Call your doctor if you observe: Fever of 101 or Higher, Coldness, Increased Pain, Numbness or Tingling, Change in Color, Inability to urinate, Inability to have a bowel movement, Shortness of breath, Dizziness, Fainting spells, Swelling in the ankles, Chest pain, Prolonged hiccupping, Increased palpitations (irregular heartbeat) and Calf discomfort When: IN 2 WEEKS Meaningful Use Info Meaningful Use Diagnoses (Choose all that apply): None applicable Discharge Plan Admission Admit Date/Time: 12/25/22 14:00 Primary Reason for Your Visit: Acute alcohol withdrawal syndrome Attending Provider: Francis Barnhart Primary Care Provider: Care Physician,No Primary Consulting Providers: Mik Silva; Glenn Dailey Discharge Orders/Prescriptions Prescriptions: New thiamine HCl (vitamin B1) [Vitamin B-1] 100 mg Tablet 100 mg PO DAILYCM Qty: 30 2RF nicotine 21 mg/24 hr Patch 24 Hour 21 mg transdermal DAILY Qty: 28 0RF folic acid 1 mg Tablet 1 mg PO DAILY@0800 Qty: 30 2RF No Action NK Referrals / Follow Up: Rory Dao DO [Med Staff - Active Staff] - Within 1 Month (Alcoholic hepatitis) Care Physician,No Primary [Primary Care Provider] - Disposition Disposition (needs filled in before D/C Order can be placed): DC/Tx to Another Type of HCF Charges/Coding Visit Charges Inpatient E&M: 37757 Disch Hosp >30min
--- NOTE | 2022-12-29 10:38 | PHA.DC.MR.R ---
Pharmacy [facility] Med Reconciliation Pharmacy Service has performed discharge medication reconciliation for this patient. The patient's discharge medication list was reviewed for discrepancies and discrepancies were resolved. Medications at Discharge Home Medications NK 12/25/22 folic acid 1 mg tablet 1 mg PO DAILY@0800 #30 tabs 12/29/22 nicotine 21 mg/24 hr daily transdermal patch 21 mg transdermal DAILY #28 ea 12/29/22 thiamine HCl (vitamin B1) 100 mg tablet (Vitamin B-1) 100 mg PO DAILYCM #30 tabs 12/29/22
== END 2022-12-29 11:30 | disposition other institution (70) | DRG 772 ==
LOC: ED 13:03 → MS3 14:43
PROVIDERS: Nurse Practitioner; Admitting Provider Internal Medicine; Emergency Provider Emergency Medicine; Visit Provider Internal Medicine
DX: F10.231 Alcohol dependence with withdrawal delirium (principal); F31.9 Bipolar disorder, unspecified; K70.10 Alcoholic hepatitis without ascites; F15.10 Other stimulant abuse, uncomplicated; F19.10 Other psychoactive substance abuse, uncomplicated; I10 Essential (primary) hypertension; F17.210 Nicotine dependence, cigarettes, uncomplicated; F17.290 Nicotine dependence, other tobacco product, uncomplicated; Y90.0 Blood alcohol level of less than 20 mg/100 ml
CPT/HCPCS: 80048; 80307; 82077; 85025; 87426; 99285; 99406; J7030; A4216